=== PATIENT | male | born 1945 | race Caucasian/White ===

== ENCOUNTER → 2019-05-08 08:11 | Outpatient (BNVA) | payer MEDICARE, OTHER, SELFPAY | PROVIDERS: Family Provider Family Medicine; PCP Family Medicine; Visit Provider Urology | DX: C67.8 Malignant neoplasm of overlapping sites of bladder (principal) | CPT/HCPCS: 81001 ==

== ENCOUNTER 2019-05-14 14:23 | Inpatient (IN) | payer MEDICARE, OTHER, SELFPAY ==
[2019-05-11 11:57] VITALS: BMI 28.5
--- NOTE | 2019-05-11 12:03 | ECG_ITS ---
Measurements Intervals [place] Rate: 61 P: 51 HI: 142 QRS: 4 QRSD: 87 T: 40 QT: 395 QTc: 398 SINUS RHYTHM POSSIBLE LEFT ATRIAL ENLARGEMENT [-0.1mV P WAVE IN V1/V2] INTERPRETATION BASED ON A DEFAULT AGE OF 40 YEARS Compared to ECG 01/04/2019 09:31:58 Short HI interval no longer present Electronically Signed On 05-12-2019 11:24:16 INDUSTRIAL MAINTENANCE MECHANIC by King Baker M.D. [email or web address]
[2019-05-11 12:32] LABS: Basophils # 0.1 10^3/uL (0.0-0.1); Basophils % 0.9 %; Eosinophils # 0.1 10^3/uL (0.0-0.8); Eosinophils % 1.9 %; Hematocrit 44.9 % (42.0-52.0); Hemoglobin 15.2 g/dL (11.7-16.6); Lymphocytes # 1.8 10^3/uL (0.8-4.8); Lymphocytes % 26.3 %; Mean Corpuscular HGB Conc 33.9 g/dL (30.0-36.0); Mean Corpuscular Hemoglobin 27.9 pg (28.0-34.0); Mean Corpuscular Volume 82.4 fL (80-94); Mean Platelet Volume 10.7 fL (7.4-10.4); Monocytes # 0.6 10^3/uL (0.2-0.9); Neutrophils # 4.4 10^3/uL (1.8-7.7); Neutrophils % 62.5 %; Nucleated Red Blood Cells % 0 %; Platelet Count 242 10^3/cmm (130-400); Red Blood Count 5.45 10^6/uL (4.1-5.3); Red Cell Distribution Width 13.2 % (12.1-15.1)
--- NOTE | 2019-05-11 12:33 | ANES.PREANES ---
Pre-Anesthetic Assessment Pre-Anesthetic Assessment: Height/Weight: Height 1.83 m Weight 95.254 kg Preop Diagnosis: Bladder cancer Proposed Procedure: Operation Date: 05/14/19 12:00 Proposed Procedures s Cystoscopy(Not Applicable) - Leo Gonzalez MD p Transurethral Resection Bladder Tumor(Not Applicable) - Leo Gonzalez MD Social: Social History: Tobacco Packs per day: 1 ppd 19 years Comment: quit 40 year Exam: Pre-Anes Outpt Exam: alert, oriented x 3, clear to auscultation bilaterally and regular rate & rhythm Airway: Submandibular: WNL Cervical ROM: Other MP: 2 Additional comments: Hx of difficult airway requiring Glidescope/LMA in past CV/HEM: CV/HEM: HTN Comments: rx'd 35 years : Comments: bladder CA Musc/skel: Musc/skel: Lower Back Pain Comments: hx right radiculopathy Anesthetic Plan: ASA status: III Anesthesia: General PFSH Anesthesia PFSH: Social History Smoking and tobacco status: former smoker Alcohol intake: current Alcohol intake frequency: few times a month Marital status: Current occupational status: retired Data Anesthesia CBC & Chem 7: 05/11/19 12:17 Other Labs: Laboratory Results - last 48 hr 05/11/19 12:17 WBC 7.0 RBC 5.45 H Hgb 15.2 Hct 44.9 MCV 82.4 MCH 27.9 L MCHC 33.9 RDW 13.2 Plt Count 242 MPV 10.7 H Neut % (Auto) 62.5 Lymph % (Auto) 26.3 [place] % (Auto) 8.0 Eos % (Auto) 1.9 Baso % (Auto) 0.9 Neut # (Auto) 4.4 Lymph # (Auto) 1.8 [place] # (Auto) 0.6 Eos # (Auto) 0.1 Baso # (Auto) 0.1 Nucleated RBC % (auto) 0 Nucleated RBCs # 0.0 Cardiac Studies: No Data to Display
[2019-05-11 12:45] LABS: Alanine Aminotransferase 19 U/L (0-41); Albumin Level 4.5 g/dL (3.5-5.2); Alkaline Phosphatase 80 IU/L (40-130); Anion Gap 13.6 (5-19); Aspartate Amino Transferase 24 U/L (0-40); Blood Urea Nitrogen 18 mg/dL (8-23); Calcium 10.4 mg/Dl (8.8-10.2); Carbon Dioxide 29 mmol/L (22-29); Chloride 97 mmol/L (98-107); Globulin 3.3 g/dL (1.3-4.6); Glucose 109 mg/dL (74-106); Potassium 3.6 mmol/L (3.5-5.1); Sodium 136 mmol/L (136-145); Total Bilirubin 0.4 mg/dL (0.15-1.2); Total Protein 7.8 g/dL (6.6-8.7)
[2019-05-14] VITALS (15 sets, daily range): BP systolic 122–158; BP diastolic 65–98; PULSE 56–88; RESP 14–18; TEMP 36.3–36.9; O2SAT 92–98
[2019-05-14] MEDS: sodium chloride 0.9% 1,000 ML 30 ML IV (10:47)
--- NOTE | 2019-05-14 13:10 | PM.HPUD ---
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 PRIMARY INDICATION FOR PROCEDURE: same PLANNED PROCEDURE: Operation Date: 05/14/19 12:00 Proposed Procedures s Cystoscopy(Not Applicable) - Leo Gonzalez MD p Transurethral Resection Bladder Tumor(Not Applicable) - Leo Gonzalez MD Full H&P Medications/Allergies: Current Medications: Current Medications Generic Name Dose Route Start Last Admin Trade Name Freq PRN Reason Stop Dose Admin Sodium Chloride 1,000 mls @ 30 ml s/hr 05/14/19 10:15 05/14/19 10:47 Sodium Chloride 0.9% IV 05/15/19 10:14 30 mls/hr .Q24H CHARLY Administration Perinent History: Medical/Surgical History: Medical History (Updated 05/08/19 @ 08:13 by Jahaira Thomas APRN) Hypertension (Acute) Malignant neoplasm of overlapping sites of bladder (Acute) Family History: Family History (Updated 04/30/19 @ 09:15 by Fatou Pace RN) Father CAD (coronary artery disease) Mother Chronic kidney disease (CKD) Social History: Social History Smoking and tobacco status: former smoker Alcohol intake: current Alcohol intake frequency: few times a month Marital status: Current occupational status: retired
[2019-05-14] MEDS: levofloxacin-dextrose 5 % 500 MG/100 ML PREMIX 100 MG IV (13:15)
[2019-05-14] MEDS: lidocaine 2% Urojet 20 mL TOPICAL (13:58)
--- NOTE | 2019-05-14 14:08 | PM.OP ---
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 Begum is a very pleasant 73-year-old white male with a history of recurrent bladder cancer and suspicious bladder mucosal on surveillance cystoscopies with admission now for resampling of the bladder mucosa. See H&P for full details. Procedure: After routine preoperative evaluation examination and obtaining of informed consent he was taken to the operating suite on 05/14/2019 where general anesthesia was administered without difficulty after appropriate timeout was performed, SCDs confirmed to be functioning, preoperative antibiotics administered, beta-china protocol confirmed. Prepped and draped in usual sterile fashion in dorsolithotomy position pain careful attention to avoiding pressure points 21 Namibian cystoscope with 30 degree lens was introduced into the urethral meatus and advanced into the bladder videoscopy. The bladder was systematically examined with both 30 and 70 degree lens scopes. Findings as described above. A couple samples were obtained of the left trigone with biopsy forceps. The urethra was then calibrated with Pender sounds and easily accommodated 30 Namibian. 2% lidocaine jelly was instilled into the urethra then a well-lubricated 25 Namibian continuous flow resectoscope sheath with visual obturator in place was advanced to the bladder under videoscopy. The gyrus bipolar system was utilized with the super loop for the resection and the button probe for fulguration. The anterior bladder wall lesion was resected completely deep into the bladder wall and sent for pathologic evaluation Left lateral bladder wall resection was then performed extending from the anterior surface all the way to posteriorly to the floor with multiple deep sampling. Button probe was then utilized to fulgurate these areas and hemostasis was visually confirmed. All chips were confirmed to be out of the bladder and then the bladder was drained with a 20 Namibian three-way Ornelas catheter with 10 cc placed in the balloon and minimal CBI with normal saline was initiated. Drainage was clear. He tolerated the procedure well without complications and was awakened in the operating room and returned to the recovery in stable condition.
--- NOTE | 2019-05-14 15:27 | PC.NURSE ---
Transfer Patient arrived from PACU at 1500. 475 ml of pale yellow urine emptied from catheter bag. No clots noted. 1100 ml remaining in CBI bags from PACU. Nurse to start CBI I&O now. Patient rates pain 0/10. Nurse will continue to monitor.
[2019-05-14] MEDS: tamsulosin 0.4 mg Capsule PO (17:01)
[2019-05-15 04:40] VITALS: BP 153/65; PULSE 65; RESP 18; TEMP 36.5; O2SAT 96
[2019-05-15 07:50] VITALS: BP 139/76; PULSE 62; RESP 17; TEMP 36.8; O2SAT 95
[2019-05-15] MEDS: tamsulosin 0.4 mg Capsule PO ×2 (09:06→17:36)
[2019-05-15 10:48] VITALS: BP 133/72; PULSE 57; RESP 20; TEMP 36.4; O2SAT 94
--- NOTE | 2019-05-15 12:45 | PC.CHAP ---
Pastoral Care Encounter/Spiritual Assessment Type of Contact [] Declined clinical informatics spec visit [] Patient/Family/Request visit [] Outpatient visit [] Follow-up visit [] Physician referral [] Code/Alert [x] Routine visit [] Staff referral [] Actively dying [] Patient sleeping [] Family support [] [] Out of room [] Palliative care [] [] Receiving care in room [] Pre-surgical visit [] Trauma [] Long length of stay [] ICU visit [] Other: Relational/Emotional Strength [x] Patient feels connected with others/family/visitors/staff [] Distress [] Loneliness/isolation [] Abandonment Spirituality of Patient [x] Person of Narcisa [x] Attends Christian of their Narcisa [x] Believes in Prayer [x] Reads Bible or Tenriism materials [] There are Spiritual issues to be addressed Hand Hide Stretcher Interventions [x] Prayer [x] Active listening [x] Non-anxious presence [x] Spiritual/emotional support [] Crisis/trauma care [] Spiritual counseling [] Bereavement support [] Provided bereavement packet [] Provided Bible/devotional materials [] Provided toy/stuffed animal, coloring book to patient or family member [x] Completed spiritual assessment [] Provided Communion [] Anointing/[place] [] Salvation [] Other: Impact on Illness or Injury [] Angry [] Fearful [] Anxious [] Often cries [] Exhaustion [] Unable to work [] Unable to attend rastafarian [] Unable to walk/stand [] Unable to read [] Unable to drive [] Unable to eat/drink [] Unable to sleep [] Unable to be with family [] Other: Summary waiting for test visiting Time spent with patient 15 min
--- NOTE | 2019-05-15 12:56 | P.PN_ITS ---
Subjective Subjective: Interval history: Postoperative day #1 TURBT. Last night he had some clot retention requiring aggressive manual irrigation as well as brisk CBI. This morning his urine looks much better. Based on this fact I recommended keeping him an extra night because he lives so far away and because of the difficulty in clearing the catheter. It is anticipated that the patient will stay at least 2 midnights based on these findings. No chest pain shortness of breath mental status changes change in bowel habits extremity swelling, abnormal bruising No visual changes. Medications: Reviewed: Yes Vitals/I&O/Wt Last Vital Signs Temp 97.5 F L 05/15/19 10:48 Pulse 57 L 05/15/19 10:48 Resp 20 H 05/15/19 10:48 BP 133/72 05/15/19 10:48 Pulse Ox 94 05/15/19 10:48 05/14/19 05/15/19 05/15/19 22:59 06:59 14:59 Intake Total 1180 / 1280 240 / 1520 360 / 360 Output Total 0 / 0 1100 / 1100 Balance 1180 / 1280 -860 / 420 360 / 360 Physical Exam Const: COMMON NORMALS: no apparent distress and oriented x3 GENERAL APPEARANCE: cooperative Resp: COMMON NORMALS: normal respiratory effort EFFORT & INSPECTION: Yes able to speak in complete sentences Neuro: COMMON NORMALS: oriented x3 Urinary Catheter Management^: 3-way Urethral CBI: Cath Placed During This Visit: Yes Urethral Indwelling: Yes Data : 05/11/19 12:17 05/11/19 12:17 A&P Assessment and plan (1) Malignant neoplasm of overlapping sites of bladder: Worrisome findings. Pathology pending Status: Chronic Code(s): C67.8 - Malignant neoplasm of overlapping sites of bladder (2) Gross hematuria: Required manual irrigation and brisk CBI last night for acute bleeding postoperatively. Better this morning. Status: Acute Code(s): R31.0 - Gross hematuria Attestations Medical Necessity Statement*: Based on risk of recurrent bleeding he is being maintained in the hospital for over 2 midnights and therefore being switched to inpatient status. Coding Level of Care Code Acute Sales Service Assistant for Evgeny Marroquin Exam Problem Focused Diagnoses Malignant neoplasm of overlapping sites of bladder C67.8 Gross hematuria R31.0
[2019-05-15 15:44] VITALS: BP 122/82; PULSE 102; RESP 17; TEMP 36.7; O2SAT 98
[2019-05-15] MEDS: NIFEdipine ER (24 hr) 30 mg Tablet 60 MG PO (17:36)
[2019-05-15 21:44] VITALS: BP 145/77; PULSE 55; RESP 20; TEMP 36.9; O2SAT 94
[2019-05-16 00:14] VITALS: BP 144/64; PULSE 62; RESP 24; TEMP 36.8; O2SAT 92
--- NOTE | 2019-05-16 07:29 | PM.MISC ---
Miscellaneous Note Note: Brief update: Urine has remained clear overnight. No manual irrigation required. This morning we will remove the catheter, do 6 bottle void, frequent PVR bladder scans, in and out cath as needed to test for adequacy of recovery prior to discharge. Hopefully can be discharged later today without Ornelas catheter.
[2019-05-16 07:41] VITALS: BP 137/80; PULSE 62; RESP 16; TEMP 37; O2SAT 93
[2019-05-16 08:47] VITALS: RESP 18
[2019-05-16] MEDS: morphine 4 mg/mL SDV 1 mL 1 MG IVP (08:47)
[2019-05-16] MEDS: NIFEdipine ER (24 hr) 30 mg Tablet 60 MG PO (08:48)
[2019-05-16] MEDS: tamsulosin 0.4 mg Capsule PO (08:48)
--- NOTE | 2019-05-16 09:01 | PC.NURSE ---
bladder Ornelas catherer removed with yellow urine with one small stringy blood clot. 525ml.
[2019-05-16 10:52] VITALS: BP 128/84; PULSE 90; RESP 16; TEMP 36.4; O2SAT 95
[2019-05-16 15:10] VITALS: BP 128/84; PULSE 90; RESP 16; O2SAT 95
--- NOTE | 2019-05-21 13:14 | P.DS_ITS ---
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 Reason for Visit Reason for Visit: Reason For Visit: 42088 C67.8 Hospital Course Discharge Summary: He was admitted on the day of procedure 05/14/2019 and underwent multiple samplings of his bladder wall that were suspicious for recurrent TCCA and carcinoma in situ. His urine was not clear enough on postoperative day #1 to remove the Ornelas catheter so he was offered the opportunity to be discharged with catheter in place or remain an extra night in the hospital for continued bladder irrigation with hopes of catheter removal the following day. Given his long distance away from the hospital is felt to be too high of a risk to remove the catheter and send him home and there was some concern about the catheter management at home and for that reason he chose to be placed on inpa tient status with hopes of discharge the following day. He was successful with voiding trial on 05/16/2019 and after confirmation of adequate emptying and no significant bleeding he was discharged on the afternoon of 05/16/2019 in stable condition. Physical Exam Const: COMMON NORMALS: no apparent distress, alert and well nourished Resp: COMMON NORMALS: normal respiratory effort EFFORT & INSPECTION: No tachypneic and No respiratory distress GI: COMMON NORMALS: soft to palpation, non-tender and no masses INSPECTION: Yes normal to inspection PALPATION: Yes soft Neuro: SENSORIUM/ORIENTATION: Yes alert Psych: COMMON NORMALS: mental status grossly normal, affect normal and speech normal SPEECH: Yes normal speech Urinary Catheter Management^: 3-way Urethral CBI: Cath Placed During This Visit: no Discharge Data Data Completed and Pending: Completed Studies During Hospitalization Category Date Time Status Pathology: Surgic al [PTH] Routine Pth 05/14/19 14:14 Completed Vitals: Last Vital Signs Temp 97.6 F 05/16/19 10:52 Pulse 90 05/16/19 15:10 Resp 16 05/16/19 15:10 BP 128/84 05/16/19 15:10 Pulse Ox 95 05/16/19 15:10 Discharge Plan Discharge Patient Disposition: Home, Self-Care Condition: Stable Prescriptions: Continued potassium chloride 10 mEq capsule, extended release 10 meq PO .COMPLEX RF: 0 triamterene-hydrochlorothiazid [Dyazide] 37.5-25 mg capsule 1 cap PO BID RF: 0 nifedipine [Procardia XL] 60 mg tablet extended release 24hr 60 mg PO BID RF: 0 cetirizine 10 mg capsule 10 mg PO DAILY RF: 0 DHS Zinc 2 % shampoo 1 applic TOPICAL DAILY RF: 0 sulfacetamide sodium (acne) 10 % suspension 1 applic TOPICAL .prn RF: 0 No Action tamsulosin 0.4 mg capsule 0.4 mg PO BID Qty: 180 RF: 3 Discharge Orders: Discharge Order (Routine); Ordered 05/16/19 Ordered By: Leo Gonzalez Referrals: Leo Gonzalez MD [Physician] - 2 months (With cystoscopy. Call late this week or early next week for pathology review over the phone. Final plans to be arranged pending pathology results. Please schedule a follow up appointment to see Dr. Gonzalez in 2 months. ) Discharge Diet: Usual diet Discharge Activity: Limit activity as instructed Patient Instructions: Cystoscopy (DC), Transurethral Resection of Bladder Tumors (DC) Discharge Date/Time: 05/16/19 15:00 Discharge Attestations Time Spent in Discharge Care*: greater than 30 min Specific Discharge Activities: Specific discharge activities: educating patient, educating and/or supporting family/caregiver and evaluating patient/reviewing data Status at Discharge: Cognitive status at discharge: cognitively intact , Behavioral status at discharge: cooperative , Quality Metrics Clinical Quality Measures During this hospital stay, did patient experience: None Coding Level of Care Code Acute Contract Coordinator for Evgeny Fwd Exam Problem Focused Diagnoses Malignant neoplasm of overlapping sites of bladder C67.8
== END 2019-05-16 15:00 | disposition home or self-care (01) | DRG 670 ==
LOC: MEDSURG 14:24
PROVIDERS: Admitting Provider Urology; Family Provider Family Medicine; PCP Family Medicine; Visit Provider Urology
PROC: 0TJB8ZZ Inspection of Bladder, Via Natural or Artificial Opening Endoscopic (ICD-10-PCS; CPT 52000; principal; 2019-05-14 12:00)
PROC: 0TBB8ZZ Excision of Bladder, Via Natural or Artificial Opening Endoscopic (ICD-10-PCS; 2019-05-14 12:00)
DX: C67.8 Malignant neoplasm of overlapping sites of bladder (principal); Z87.891 Personal history of nicotine dependence; I10 Essential (primary) hypertension
CPT/HCPCS: 12345; 36415; 80053; 85025; 88305; 93005; 96365; 96375; G0378; J1956; J2001; J2270; J2704; J3010; J3490; J7030

== ENCOUNTER 2019-06-13 13:01 | Outpatient (CLI) | payer MEDICARE, OTHER, SELFPAY ==
--- NOTE | 2019-06-14 11:44 | ONC CON_ITS ---
Dr. Bermudez New Patient Note Patient: Farhad Begum Unit #: [id number]: 1945 Dicatated By: Bambi Bermudez M.D.Date of Visit: Jun 13, 2019 Onc MED New Patient/Consult Referring Physician: Dr. Leo Gonzalez M.D. History of Present Illness: Mr. Farhad Begum, is a 73-year-old gentleman with history of superficial bladder cancer who has been treated with intravesical BCG treatment in the past and recently underwent TURBT on 05/14/2019 and anterior bladder wall lesion was completely removed and final pathology report came back papillary urothelial carcinoma, high-grade. Carcinoma invades into lamina propria, no muscularis propria present for evaluation eg pT1 Left lateral bladder wall lesion was also biopsied and it showed reactive atypical urothelium in the background of abundant admitted this polypoid granulation tissue no malignancy identified no dysplasia seen. Biopsy from bladder, left trigone shows carcinoma in situ no invasive malignancy seen. 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 Patient denies any specific complaints, denies any hematuria, denies any abdominal pain, denies any new bony pains, denies any weight loss, denies any fever chills or dysuria. Past Medical History: Mr. Begum's medical history consists of bph and hypertension. Past Surgical History: Mr. Begum's surgical/procedural history consists of TURBT. Medications: Cefuroxime Axetil 1 Tablet (of 500 mg) Oral b.i.d., DHS Zinc Shampoo Topical PRN, Potassium Chloride Mile ER 3 Tablet (of 10 meq) Tablet, controlled release Oral b.i.d., Procardia XL 1 Tablet (of 60 mg) Tablet SR 24 HR Oral b.i.d., Sulfacetamide Sodium Cream Topical PRN, Tamsulosin HCl 2 Capsule (of 0.4 mg) Oral at bedtime, Triamterene-HCTZ 1 Capsule (of 37.5-25 mg) Oral b.i.d., ZyrTEC Allergy 1 Capsule (of 10 mg) Oral daily PRN Allergies: No Known Allergies. Social History: Mr. Begum is . Mr. Begum no longer smokes. He is an active drinker.He has indicated exposure to the following products: chewing tobacco. pt states he drinks one shot once a day of bourbon. Family History: Mr. Begum's mother at age 77: kidney disease, and stroke. Mr. Begum's father at age 82: heart disease. Mr. Begum has 2 sisters: 2 . Review Of Symptoms: Constitutional - Appetite is good and weight is stable. No fever, chills, hot flashes, or night sweats. Energy level is good, ENMT - Positive for sinus congestion/drainage. No mouth sores. No sore throat or difficulty swallowing, Hematologic/Lymphatic - Positive for easy bruising, Respiratory - No shortness of breath. No cough. No pleuritic pain or hemoptysis, Cardiovascular - No angina pain. No palpitations, Gastrointestinal - No nausea or vomiting. No heartburn or acid reflux. No diarrhea or constipation. No blood in the stool or black stools, Genitourinary (M) - No dysuria or hematuria. Positive for urinary frequency. No urgency or incontinence, Musculoskeletal - No joint or bone pain, Neurologic - No headache or dizziness. No numbness/paresthesias or other focal neurologic symptoms, Psychiatric - No anxiety or depression. No insomnia. Vital Signs: Most recent vitals are not available for this patient. Performance Status: 0 - Fully active, able to carry on all predisease activities without restrictions. (ECOG) Physical Examination: ENMT - No oral exudates, ulcers, masses, thrush or mucositis. Oropharynx clear. Tongue normal, Respiratory - Lungs are clear to auscultation without rhonchi or wheezing, Cardiovascular - Regular rate and rhythm of heart, Abdomen - Non-tender, non-distended, Good bowel sounds. No guarding or rebound tenderness. No pulsatile masses, Extremities - no edema. Lab/Imaging: Most recent lab results are not available for this patient. 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 Plan: Discussed with patient regarding his pathology report and treatment options and patient was informed that it is not clear whether he has superficial disease or invasive as final pathology report showed no muscularis propria was present for evaluation. In that case; it is important to have a second look and repeat biopsy, as 30-40% patient with lamina propria invasion would show muscle involvement on repeat biopsy. And treatment options are different for superficial bladder cancer compared to muscle invasive disease. Patient agreed and we will also discuss case with Dr. Gonzalez, urologist for repeat cystoscopy/biopsy . If patient has superficial disease then treatment options include intravesical docetaxel as in BCG refractory non-muscle invasive bladder cancer maintenance therapy with docetaxel may increase the duration of recurrence free survival. Study showed 32/ 54 patient with BCG refractory bladder cancer showed a complete response to 6 weekly treatments of intravesical docetaxel. Median time to recurrence was 39.3 months in responder treated with maintenance docetaxel compared with 19 months and those who did not receive maintenance therapy Other option would be pembrolizumab which is indicated for treatment of BCG refractory disease, high risk, non-muscle invasive bladder cancer which showed complete response rate of 41% in patient who received pembrolizumab and median duration of response was 16.2 months. Patient will return to clinic in 1 week unless repeat cystoscopy/biopsy is considered in that case we will see him after the biopsy. Signed By: Bambi Bermudez M.D. <<Signature on File>>
== END 2019-06-13 13:02 | disposition home or self-care (01) ==
LOC: ONCMED 13:06
PROVIDERS: Family Provider Family Medicine; PCP Family Medicine; Referring Provider Urology; Visit Provider Internal Medicine Hematology & Oncology
DX: C67.3 Malignant neoplasm of anterior wall of bladder (principal); N40.0 Benign prostatic hyperplasia without lower urinary tract symptoms; I10 Essential (primary) hypertension; F17.220 Nicotine dependence, chewing tobacco, uncomplicated; F10.10 Alcohol abuse, uncomplicated; Z79.899 Other long term (current) drug therapy
CPT/HCPCS: 99203

== ENCOUNTER 2019-06-28 13:46 | Observation (INO) | payer MEDICARE, OTHER, SELFPAY ==
[2019-06-27 16:13] VITALS: BMI 28.5
[2019-06-28] VITALS (13 sets, daily range): BP systolic 116–155; BP diastolic 68–83; PULSE 57–72; RESP 10–20; TEMP 36.3–36.8; O2SAT 91–100
--- NOTE | 2019-06-28 11:06 | ANES.PREANE2 ---
Pre-Anesthetic Assessment Pre-Anesthetic Assessment: Height/Weight: Height 1.83 m Weight 95.254 kg Temp Pulse Resp BP Pulse Ox 98.1 F 65 18 140/72 95 06/28/19 10:39 06/28/19 10:39 06/28/19 10:39 06/28/19 10:39 06/28/19 10:39 Preop Diagnosis: Bladder cancer Proposed Procedure: Operation Date: 06/28/19 12:00 Proposed Procedures p Cystoscopy 10059 C67.8(Not Applicable) - Leo Gonzalez MD s Transurethral Resection Bladder Tumor/deep samples(Not Applicable) - Leo Gonzalez MD Last intake: Intake Last Liquid Date 06/27/19 Last Liquid Time 19:00 Last Solid Date 06/27/19 Last Solid Time 19:00 Social: Social History: Tobacco Comment: Exam: Pre-Anes Outpt Exam: alert, oriented x 3, clear to auscultation bilaterally and regular rate & rhythm Airway: Submandibular: WNL Cervical ROM: Other MP: 3 CV/HEM: CV/HEM: HTN (rx'd x 50y) : Comments: Bladder Ca Musc/skel: Musc/skel: Lower Back Pain Comments: right > left radiculopathy Anesthetic Plan: ASA status: 3 Anesthesia: General Other: Hx difficult airway PFSH Anesthesia PFSH: Family History (Updated 06/28/19 @ 08:48 by Esther Hoffman LPN) Father , IN HIS 80'S CAD (coronary artery disease) Mother , IN HER 70'S Chronic kidney disease (CKD) Social History (Updated 06/28/19 @ 08:48 by Esther Hoffman LPN) Smoking and tobacco status: former smoker Alcohol intake: current Alcohol intake frequency: few times a month Marital status: Current occupational status: retired History of recent travel: No Data Anesthesia Cardiac Studies: No Data to Display
[2019-06-28] MEDS: sodium chloride 0.9% 1,000 ML 30 ML IV (11:23)
--- NOTE | 2019-06-28 12:32 | W.PM.OPSUD ---
Surgery/Procedure H&P Update DATE OF PROCEDURE: June 28, 2019 DATE H&P PERFORMED: 06/28/19 CHANGES TO PREVIOUS DOCUMENTATION: none PREOP DIAGNOSIS: Bladder cancer PLANNED PROCEDURE: Operation Date: 06/28/19 12:00 Proposed Procedures p Cystoscopy 65846 C67.8(Not Applicable) - Leo Gonzalez MD s Transurethral Resection Bladder Tumor/deep samples(Not Applicable) - Leo Gonzalez MD
[2019-06-28] MEDS: levofloxacin-dextrose 5 % 500 MG/100 ML PREMIX 100 MG IV (12:34)
[2019-06-28] MEDS: lidocaine 2% Urojet 20 mL TOPICAL (13:08)
--- NOTE | 2019-06-28 13:08 | P.OP_ITS ---
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 Resection into muscle fibers cystoscopically confirmed. Condition: stable Disposition: PACU Brief History: Mr. 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 He has failed BCG intravesical therapy and consultation with oncology was conducted to consider alternative options including intravesical, systemic, or surgical extirpative therapy. Recommendation was made to resample the deeper sites to better assess muscle status. Procedure: After routine preoperative evaluation examination and obtaining of informed consent he was taken to the operating suite on 06/28/2019 where general anesthesia was administered without difficulty after appropriate timeout was performed, SCDs confirmed to be functioning, preoperative antibiotics administered, beta-china protocol confirmed. Prepped and draped in usual sterile fashion in dorsolithotomy position pain careful attention to avoiding pressure points. 21 Vietnamese cystoscope with 30 degree lens was introduced into the Siri meatus and advanced into the bladder videoscopy. Bladder was systematically examined with both 30 and 70 degree lenses in the previous resection sites were identified. No obvious residual tumor was identified in the deep sites. The bladder mucosa did look very abnormal though throughout. The urethra was then calibrated with [place] sounds and easily accommodated 30 Vietnamese. 2% lidocaine jelly was instilled into the urethra and the well- lubricated 25 Vietnamese continuous flow resectoscope sheath with visual obturator in place was advanced into the bladder without difficulty. The gyrus bipolar system was utilized with the super loop and button probe for the procedure. The super loop was utilized to resect deeply into the muscle wall on the anterior bladder wall site and also on the left lateral wall as well. These resections were performed separately and sent separately. The sites were then fulgurated with the button probe. Hemostasis was good with no active bleeding. All chips were confirmed to be out of the bladder, hemostasis was confirmed, bladder was drained with a 20 Vietnamese three-way Ornelas catheter with 10 cc placed in the balloon and light CBI running prophylactically. Tolerated the procedure well without complications and was awakened in the operating room and returned to the recovery room in stable condition. PLANS: To be arranged
[2019-06-28] MEDS: lactated ringers 1,000 ML 50 ML IV (14:52)
[2019-06-28] MEDS: tamsulosin 0.4 mg Capsule PO (17:12)
--- NOTE | 2019-06-28 18:07 | PC.NURSE ---
Patient has not complained of pain this shift, only soreness at adan insertion site. Pain medications offered, patient refused. CBI running slow at this time, urine pink tinged one small clot noted in adan drainage bag. No manual irrigation needed. When patient received from PACU approximately 1000mL noted in each bag of fluid. approximately 100mL of fluid used for CBI, patient has had a total ouptut of 2150mL this shift.
[2019-06-29] VITALS: BP 118/68; PULSE 57; RESP 16; TEMP 36.7; O2SAT 93
[2019-06-29 03:48] VITALS: BP 123/72; PULSE 55; RESP 15; TEMP 36.8; O2SAT 91
--- NOTE | 2019-06-29 06:06 | PC.PHAR ---
CBI Pt. has done well throughout the night, no complaints of pain. Patient catheter has been draining well without passage of clots. Pt. did have one episode of increased blood in urine, CBI was sped up and it cleared immediately. CBI has been able to be slowed down to barely dripping with urine remaining clear to light yellow. Total intake of CBI fluids 1800mL with output returns of 2350mL.
[2019-06-29 08:00] VITALS: BP 126/64; PULSE 57; RESP 16; TEMP 36.8; O2SAT 92
[2019-06-29] MEDS: NIFEdipine ER (24 hr) 30 mg Tablet 60 MG PO (09:05)
[2019-06-29] MEDS: tamsulosin 0.4 mg Capsule PO (09:05)
--- NOTE | 2019-06-29 09:51 | ANE.PACU2 ---
 Inpatient post-anesthesia follow up: Airway intact: Yes Vital signs: Temperature 98.2 F Pulse Rate 57 Respiratory Rate 16 Blood Pressure 126/64 Pulse Oximetry 92 Oxygen Delivery Me thod Room Air Oxygen Flow Rate 8 Fraction of Inspir ed Oxygen Hydration adequate: Yes Nausea and vomiting: No Pain level: 1 Mental status: Baseline
[2019-06-29] MEDS: lactated ringers 1,000 ML 50 ML IV (10:48)
[2019-06-29 12:00] VITALS: BP 155/86; PULSE 85; RESP 18; TEMP 36.9; O2SAT 94
--- NOTE | 2019-06-29 13:12 | P.DS_ITS ---
Discharge Providers Date of Admission: 06/28/19 13:46 Date of Discharge: June 29, 2019 Attending Provider at Admission: Leo Gonzalez MD Attending Provider at Discharge: Leo Gonzalez MD Primary Care Provider: Marino Peguero DO Diagnoses at Discharge Discharge Diagnosis (1) Malignant neoplasm of overlapping sites of bladder: Status: Chronic Problem details: Patient with history of carcinoma in situ treated with prolonged BCG. Reason for Visit Reason for Visit: Reason For Visit: C67.8 Hospital Course Hospital Course: Admitted on the day of the procedure which went well. 2 areas were resected deeply into the bladder wall. No severe bleeding. Could not clearly see any residual tumor. Muscle fibers were visible at the base of the resection. Postoperatively did well. Urine remained clear. On the afternoon of postoperative day #1 his catheter was removed and a voided adequately. SCIC was reviewed again with the patient. No severe bleeding. Discharged home in stable condition. Physical Exam Const: COMMON NORMALS: no apparent distress and alert : BLADDER/KIDNEY EXAM: Yes bladder normal to palpation PENIS: normal penis MEATUS: meatus normal Neuro: SENSORIUM/ORIENTATION: Yes alert Psych: COMMON NORMALS: mental status grossly normal, thought process normal and cooperative ATTITUDE: Yes calm and Yes engaged THOUGHT PROCESS: normal thought process Urinary Catheter Management^: 3-way Urethral CBI: Cath Placed During This Visit: yes Urinary Catheter Date of Insertion: 06/28/19 Urinary Catheter Time of Insertion: 13:05 Discharge Data Data Completed and Pending: Completed Studies During Hospitalization Category Date Time Status Pathology: Surgic al [PTH] Routine Pth 06/28/19 13:22 Completed Vitals: Last Vital Signs Temp 98.2 F 06/29/19 08:00 Pulse 57 L 06/29/19 08:00 Resp 16 06/29/19 08:00 BP 126/64 06/29/19 08:00 Pulse Ox 92 06/29/19 08:00 Discharge Plan Discharge Patient Disposition: Home, Self-Care Condition: Stable Prescriptions: Continued potassium chloride 10 mEq capsule, extended release 10 meq PO .COMPLEX RF: 0 triamterene-hydrochlorothiazid [Dyazide] 37.5-25 mg capsule 1 cap PO BID RF: 0 nifedipine [Procardia XL] 60 mg tablet extended release 24hr 60 mg PO BID RF: 0 cetirizine 10 mg capsule 10 mg PO DAILY RF: 0 DHS Zinc 2 % shampoo 1 applic TOPICAL DAILY RF: 0 sulfacetamide sodium (acne) 10 % suspension 1 applic TOPICAL .prn RF: 0 tamsulosin 0.4 mg capsule 0.4 mg PO BID Qty: 180 RF: 3 Discharge Orders: Discharge Order (Routine); Ordered 06/29/19 Ordered By: Leo Gonzalez Referrals: Leo Gonzalez MD [Physician] - 07/06/19 (Path check) Discharge Diet: Usual diet Discharge Activity: Limit activity as instructed Activity Restrictions/Additional Instructions: Avoid lifting >10 pounds. In and out catheterization as needed for difficulty voiding. Avoid over distention of the bladder. Call for excessive persistent gross hematuria. Discharge Attestations Status at Discharge: Cognitive status at discharge: cognitively intact , Behavioral status at discharge: cooperative , Coding Level of Care Code Acute Brand Ambassador Promotional Model for g Fwd Diagnoses Malignant neoplasm of overlapping sites of bladder C67.8
--- NOTE | 2019-06-29 13:17 | PC.CHAP ---
Pastoral Care Encounter/Spiritual Assessment Type of Contact [] Declined litigation secretary visit [] Patient/Family/Request visit [] Outpatient visit [] Follow-up visit [] Physician referral [] Code/Alert []x Routine visit [] Staff referral [] Actively dying [] Patient sleeping [] Family support [] [] Out of room [] Palliative care [] [] Receiving care in room [] Pre-surgical visit [] Trauma [] Long length of stay [] ICU visit [] Other: Relational/Emotional Strength [x] Patient feels connected with others/family/visitors/staff [] Distress [] Loneliness/isolation [] Abandonment Spirituality of Patient [x] Person of Narcisa [] Attends Mu-Ism of their Narcisa [] Believes in Prayer [] Reads Bible or Hoahaoism materials [] There are Spiritual issues to be addressed Economics Instructor Interventions [x] Prayer [] Active listening [] Non-anxious presence [] Spiritual/emotional support [] Crisis/trauma care [] Spiritual counseling [] Bereavement support [] Provided bereavement packet [] Provided Bible/devotional materials [] Provided toy/stuffed animal, coloring book to patient or family member [] Provided Communion [] Anointing/[place] [] Salvation [x] Completed spiritual assessment [] Other: Impact on Illness or Injury [] Angry [] Fearful [x] Anxious [] Often cries [] Exhaustion [] Unable to work [] Unable to attend episcopalian [] Unable to walk/stand [] Unable to read [] Unable to drive [] Unable to eat/drink [] Unable to sleep [] Unable to be with family [] Patient intubated [] Other: Summary patient want to go home Time spent with patient 10 m1n 1 visitor
[2019-06-29 14:54] VITALS: BP 155/86; PULSE 85; RESP 18; TEMP 36.9; O2SAT 94
[2019-06-29 16:00] VITALS: BP 153/82; PULSE 60; RESP 18; TEMP 36.4; O2SAT 95
== END 2019-06-29 16:53 | disposition home or self-care (01) ==
LOC: MEDSURG 13:47
PROVIDERS: Admitting Provider Urology; Family Provider Family Medicine; PCP Family Medicine; Visit Provider Urology
PROC: 0TJB8ZZ Inspection of Bladder, Via Natural or Artificial Opening Endoscopic (ICD-10-PCS; CPT 52000; principal; 2019-06-28 12:00)
PROC: 0TBB8ZZ Excision of Bladder, Via Natural or Artificial Opening Endoscopic (ICD-10-PCS; CPT 52235; 2019-06-28 12:00)
DX: C67.8 Malignant neoplasm of overlapping sites of bladder (principal); I10 Essential (primary) hypertension; Z87.891 Personal history of nicotine dependence
CPT/HCPCS: 52235; 12345; 81001; 88305; 96360; 96361; 96375; G0378; J0131; J1956; J7030

== ENCOUNTER 2019-07-06 13:36 | Outpatient (CLI) | payer MEDICARE, OTHER, SELFPAY ==
[2019-07-06 14:50] LABS: Basophils # 0.1 10^3/uL (0.0-0.1); Basophils % 1.3 %; Eosinophils # 0.3 10^3/uL (0.0-0.8); Eosinophils % 4.8 %; Hematocrit 45.5 % (42.0-52.0); Lymphocytes # 1.5 10^3/uL (0.8-4.8); Lymphocytes % 28.2 %; Mean Corpuscular Hemoglobin 28.2 pg (28.0-34.0); Mean Corpuscular Volume 85.5 fL (80-94); Mean Platelet Volume 11.8 fL (7.4-10.4); Monocytes # 0.5 10^3/uL (0.2-0.9); Monocytes % 8.6 %; Neutrophils % 56.5 %; Nucleated Red Blood Cells % 0 %; Platelet Count 207 10^3/cmm (130-400); Red Blood Count 5.32 10^6/uL (4.1-5.3); Red Cell Distribution Width 13.1 % (12.1-15.1); White Blood Count 5.3 10^3/uL (4.0-10.0)
[2019-07-06 15:34] LABS: Alanine Aminotransferase 24 U/L (0-41); Albumin Level 4.1 g/dL (3.5-5.2); Alkaline Phosphatase 65 IU/L (40-130); Anion Gap 18.7 (5-19); Aspartate Amino Transferase 27 U/L (0-40); Blood Urea Nitrogen 22 mg/dL (8-23); Calcium 9.7 mg/dL (8.5-10.5); Carbon Dioxide 27 mmol/L (22-29); Chloride 98 mmol/L (98-107); Glucose 142 mg/dL (65-115); Osmolality Calculated 289 mOsm/kg (285-295); Potassium 3.7 mmol/L (3.5-5.1); Sodium 140 mmol/L (136-145); Total Bilirubin 0.5 mg/dL (0.15-1.2); Total Protein 7.1 g/dL (6.6-8.7)
== END 2019-07-06 13:37 | disposition home or self-care (01) ==
LOC: ONCMED 13:36
PROVIDERS: Family Provider Family Medicine; PCP Family Medicine; Visit Provider Internal Medicine Hematology & Oncology
DX: C67.0 Malignant neoplasm of trigone of bladder (principal)
CPT/HCPCS: 80053; 85025

== ENCOUNTER 2019-07-10 13:13 | Outpatient (CLI) | payer MEDICARE, OTHER, SELFPAY ==
--- NOTE | 2019-07-10 17:48 | ONC FU_ITS ---
Dr. Bermudez follow up note Patient: Farhad Begum Unit #: [id number]: 1945 Dicatated By: Bambi Bermudez M.D.Date of Visit:Jul 10, 2019 Onc Med Follow-up/Prog Note History of Present Illness: Mr. Farhad Begum, is a 73-year-old gentleman with history of superficial bladder cancer who has been treated with intravesical BCG treatment in the past and recently underwent TURBT on 05/14/2019 and anterior bladder wall lesion was completely removed and final pathology report came back papillary urothelial carcinoma, high-grade. Carcinoma invades into lamina propria, no muscularis propria present for evaluation eg pT1 Left lateral bladder wall lesion was also biopsied and it showed reactive atypical urothelium in the background of abundant admitted this polypoid granulation tissue no malignancy identified no dysplasia seen. Biopsy from bladder, left trigone shows carcinoma in situ no invasive malignancy seen. 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 Patient denies any specific complaints, denies any hematuria, denies any abdominal pain, denies any new bony pains, denies any weight loss, denies any fever chills or dysuria. Came for follow-up, denies any specific complaints, no nausea vomiting no fever no chills no hematuria no dysuria. Patient underwent repeat cystoscopy with the biopsy of bladder wall which showed carcinoma in situ no evidence of invasive tumor. Medications: Cefuroxime Axetil 1 Tablet (of 500 mg) Oral b.i.d., DHS Zinc Shampoo Topical PRN, Potassium Chloride Mile ER 3 Tablet (of 10 meq) Tablet, controlled release Oral b.i.d., Procardia XL 1 Tablet (of 60 mg) Tablet SR 24 HR Oral b.i.d., Sulfacetamide Sodium Cream Topical PRN, Tamsulosin HCl 2 Capsule (of 0.4 mg) Oral at bedtime, Triamterene-HCTZ 1 Capsule (of 37.5-25 mg) Oral b.i.d., ZyrTEC Allergy 1 Capsule (of 10 mg) Oral daily PRN Allergies: No Known Allergies. Review of Systems: Constitutional - Appetite is good and weight is stable. No fever, chills, hot flashes, or night sweats. Energy level is good, ENMT - Positive for sinus congestion/drainage. No mouth sores. No sore throat or difficulty swallowing, Hematologic/Lymphatic - Positive for easy bruising, Respiratory - No shortness of breath. No cough. No pleuritic pain or hemoptysis, Cardiovascular - No angina pain. No palpitations, Gastrointestinal - No nausea or vomiting. No heartburn or acid reflux. No diarrhea or constipation. No blood in the stool or black stools, Genitourinary (M) - No dysuria or hematuria. Positive for urinary frequency. No urgency or incontinence, Musculoskeletal - No joint or bone pain, Neurologic - No headache or dizziness. No numbness/paresthesias or other focal neurologic symptoms, Psychiatric - No anxiety or depression. No insomnia. Vital Signs: Performed on Jul 10, 2019 13:33 Height - 72.00 in Weight - 219.0 lbs (HIGH) BSA - 2.21 sq.m BMI - 29.70 Temperature - 97.8 F (LOW) Pulse - 67 /min Respiration - 18 /min BP - 137/75 mm(hg) O2 Sat - 98 % Pain - 0 Performance Status: 0 - Fully active, able to carry on all predisease activities without restrictions. (ECOG) Physical Examination: ENMT - No oral exudates, ulcers, masses, thrush or mucositis. Oropharynx clear. Tongue normal, Respiratory - Lungs are clear to auscultation without rhonchi or wheezing, Cardiovascular - Regular rate and rhythm of heart, Abdomen - Non-tender, non-distended, Good bowel sounds. No guarding or rebound tenderness. No pulsatile masses, Extremities - no edema. Lab/Imaging: Most recent lab results are not available for this patient. 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 Plan: Discussed with patient regarding his repeat biopsy of the under better which shows transitional carcinoma in situ, focal but no evidence of invasive tumor and case was discussed with Dr. Gonzalez, as per his observation patient has extensive bladder wall involvement and has BCG refractory disease treatment options including intravesical docetaxel versus pembrolizumab. Patient is a high risk noninvasive bladder cancer and may benefit from pembrolizumab, all the side effect possible benefits associated with immunotherapy including risk of pneumonitis, colitis, endocrine abnormalities, allergic reaction were discussed. Further teaching done by chemotherapy nurse. Patient agreed we will obtain approval from his insurance and plan to give him pembrolizumab 200 mg IV every 3 weeks and repeat cystoscopy/biopsy in 3 months. We'll also check thyroid function test. Patient return to clinic 1 week after immunotherapy is initiated with CBC CMP Signed By: Bambi Bermudez M.D. <<Signature on File>>
== END 2019-07-10 13:14 | disposition home or self-care (01) ==
LOC: ONCMED 13:19
PROVIDERS: Family Provider Family Medicine; PCP Family Medicine; Visit Provider Internal Medicine Hematology & Oncology
DX: C67.0 Malignant neoplasm of trigone of bladder (principal); Z92.3 Personal history of irradiation
CPT/HCPCS: 99214

== ENCOUNTER 2019-07-24 14:48 | Outpatient (CLI) | payer MEDICARE, OTHER, SELFPAY ==
[2019-07-24] MEDS: sodium chloride 0.9% 100 ML 75 ML (15:10)
== END 2019-07-24 14:49 | disposition home or self-care (01) ==
LOC: ONCMED 14:51
PROVIDERS: Family Provider Family Medicine; PCP Family Medicine; Visit Provider Internal Medicine Hematology & Oncology
DX: Z51.12 Encounter for antineoplastic immunotherapy (principal); C67.3 Malignant neoplasm of anterior wall of bladder
CPT/HCPCS: 96413; J7050; J9271

== ENCOUNTER 2019-08-14 06:45 | Outpatient (RCR) | payer MEDICARE, OTHER, SELFPAY ==
[2019-07-27 12:16] LABS: Basophils % 0.6 %; Eosinophils # 0.3 10^3/uL (0.0-0.8); Eosinophils % 4.7 %; Hematocrit 46.2 % (42.0-52.0); Hemoglobin 15.4 g/dL (11.7-16.6); Lymphocytes # 1.5 10^3/uL (0.8-4.8); Lymphocytes % 23.2 %; Mean Corpuscular HGB Conc 33.3 g/dL (30.0-36.0); Mean Corpuscular Hemoglobin 28.5 pg (28.0-34.0); Mean Corpuscular Volume 85.4 fL (80-94); Mean Platelet Volume 12.3 fL (7.4-10.4); Monocytes # 0.6 10^3/uL (0.2-0.9); Neutrophils # 3.9 10^3/uL (1.8-7.7); Neutrophils % 62.2 %; Nucleated Red Blood Cells % 0 %; Platelet Count 191 10^3/cmm (130-400); Red Blood Count 5.41 10^6/uL (4.1-5.3); Red Cell Distribution Width 13.3 % (12.1-15.1); White Blood Count 6.3 10^3/uL (4.0-10.0)
[2019-07-27 12:44] LABS: Alanine Aminotransferase 18 U/L (0-41); Albumin Level 4.1 g/dL (3.5-5.2); Alkaline Phosphatase 68 IU/L (40-130); Anion Gap 19.6 (5-19); Aspartate Amino Transferase 22 U/L (0-40); Blood Urea Nitrogen 19 mg/dL (8-23); Calcium 9.4 mg/dL (8.5-10.5); Carbon Dioxide 25 mmol/L (22-29); Chloride 99 mmol/L (98-107); Globulin 2.8 g/dL (1.3-4.6); Glucose 113 mg/dL (65-115); Osmolality Calculated 287 mOsm/kg (285-295); Potassium 3.6 mmol/L (3.5-5.1); Sodium 140 mmol/L (136-145); Thyroid Stimulating Hormone 2.06 uIU/mL (0.27-4.20); Total Bilirubin 0.6 mg/dL (0.15-1.2); Total Protein 6.9 g/dL (6.6-8.7)
--- NOTE | 2019-07-30 15:10 | ONC FU_ITS ---
Dr. Bermudez follow up note Patient: Farhad Begum Unit #: [id number]: 1945 Dicatated By: Bambi Bermudez M.D.Date of Visit:Jul 30, 2019 Onc Med Follow-up/Prog Note History of Present Illness: Mr. Farhad Begum, is a 73-year-old gentleman with history of superficial bladder cancer who has been treated with intravesical BCG treatment in the past and recently underwent TURBT on 05/14/2019 and anterior bladder wall lesion was completely removed and final pathology report came back papillary urothelial carcinoma, high-grade. Carcinoma invades into lamina propria, no muscularis propria present for evaluation eg pT1 Left lateral bladder wall lesion was also biopsied and it showed reactive atypical urothelium in the background of abundant admitted this polypoid granulation tissue no malignancy identified no dysplasia seen. Biopsy from bladder, left trigone shows carcinoma in situ no invasive malignancy seen. 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 Patient denies any specific complaints, denies any hematuria, denies any abdominal pain, denies any new bony pains, denies any weight loss, denies any fever chills or dysuria. Started on Keytruda on 07/24/2019 for BCG refractory disease Came for follow-up, denies any specific complaints, no fever or chills, no nausea or vomiting, no skin rash, no shortness of breath, no diarrhea. Tolerated first cycle of immunotherapy with Keytruda well Came for follow-up, denies any specific complaints, no nausea vomiting no fever no chills no hematuria no dysuria. Patient underwent repeat cystoscopy with the biopsy of bladder wall which showed carcinoma in situ no evidence of invasive tumor. Medications: Cefuroxime Axetil 1 Tablet (of 500 mg) Oral b.i.d., DHS Zinc Shampoo Topical PRN, Potassium Chloride Mile ER 3 Tablet (of 10 meq) Tablet, controlled release Oral b.i.d., Procardia XL 1 Tablet (of 60 mg) Tablet SR 24 HR Oral b.i.d., Sulfacetamide Sodium Cream Topical PRN, Tamsulosin HCl 2 Capsule (of 0.4 mg) Oral at bedtime, Triamterene-HCTZ 1 Capsule (of 37.5-25 mg) Oral b.i.d., ZyrTEC Allergy 1 Capsule (of 10 mg) Oral daily PRN Allergies: No Known Allergies. Review of Systems: Constitutional - Appetite is good and weight is stable. No fever, chills, hot flashes, or night sweats. Energy level is good, ENMT - Positive for sinus congestion/drainage. No mouth sores. No sore throat or difficulty swallowing, Hematologic/Lymphatic - Positive for easy bruising, Respiratory - No shortness of breath. No cough. No pleuritic pain or hemoptysis, Cardiovascular - No angina pain. No palpitations, Gastrointestinal - No nausea or vomiting. No heartburn or acid reflux. No diarrhea or constipation. No blood in the stool or black stools, Genitourinary (M) - No dysuria or hematuria. Positive for urinary frequency. No urgency or incontinence, Musculoskeletal - No joint or bone pain, Neurologic - No headache or dizziness. No numbness/paresthesias or other focal neurologic symptoms, Psychiatric - No anxiety or depression. No insomnia. Vital Signs: Performed on Jul 30, 2019 14:25 Height - 72.00 in Weight - 219.4 lbs (HIGH) BSA - 2.22 sq.m BMI - 29.76 Temperature - 98.5 F Pulse - 84 /min Respiration - 22 /min BP - 150/68 mm(hg) (HIGH) O2 Sat - 95 % (LOW) Pain - 0 Performance Status: 0 - Fully active, able to carry on all predisease activities without restrictions. (ECOG) Physical Examination: ENMT - patient denies mouth sores or thrush, Respiratory - patient denies any wheezing or shortness of breath, Cardiovascular - patient denies any palpitation, Abdomen - patient denies any abdominal pain or fullness, Extremities - patient denies any lower extremity edema. Lab/Imaging: Test performed on Jul 27, 2019 07:05 Sodium 140 mmol/L TSH 2.06 uIU/mL Potassium 3.6 mmol/L Chloride 99 mmol/L CO2 25 mmol/L Anion Gap 19.6 BUN 19 mg/dL Creatinine 0.9 mg/dL Cr Clearance (Est) 99.6500 mL/min Glucose 113 mg/dL Calcium 9.4 mg/dL Protein, Total 6.9 g/dL Albumin 4.1 g/dL Globulin 2.8 g/dL Bilirubin, Total 0.6 mg/dL ALT (SGPT) 18 U/L AST (SGOT) 22 U/L Alkaline Phosphatase 68 IU/L WBC 6.3 10 3/uL RBC 5.41 10 6/uL HGB 15.4 g/dL HCT 46.2 % MCV 85.4 fL MCH 28.5 pg MCHC 33.3 g/dL RDW 13.3 % Platelet Count 191 10 3/cmm MPV 12.3 fL Neutrophils 3.9 10 3/uL Lymphocytes 1.5 10 3/uL Monocytes 0.6 10 3/uL Eosinophils 0.3 10 3/uL Basophils 0.0 10 3/uL Neutrophil % 62.2 % Lymphocyte % 23.2 % Monocyte % 9.0 % Eosinophil % 4.7 % Basophils % 0.6 % Impression: Papillary urothelial carcinoma, high-grade, involving anterior urinary bladder wall, per TURBT done on 05/14/2019, final pathology report showed carcinoma invades into lamina propria, no muscularis propria present for evaluation pT1 Status post intravesical therapy with BCG now 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 Started on 3 weekly Keytruda on 07/24/2019 Plan: Discussed with patient regarding his labs white blood count 6.3 hemoglobin 15.4 crit 46.2 platelets 191,000 CMP within normal limits TSH 2.06 Clinically, patient is doing well, with no signs symptoms suggestive of immunotherapy related side effects. He will return to clinic in 2 weeks for next 3 weekly dose of Keytruda, with CBC CMP. Signed By: Bambi Bermudez M.D. <<Signature on File>>
[2019-08-13 08:42] LABS: Basophils # 0.1 10^3/uL (0.0-0.1); Basophils % 0.9 %; Eosinophils # 0.2 10^3/uL (0.0-0.8); Eosinophils % 4.3 %; Hematocrit 47.8 % (42.0-52.0); Hemoglobin 15.8 g/dL (11.7-16.6); Lymphocytes # 1.3 10^3/uL (0.8-4.8); Lymphocytes % 23.8 %; Mean Corpuscular HGB Conc 33.1 g/dL (30.0-36.0); Mean Corpuscular Hemoglobin 27.9 pg (28.0-34.0); Mean Corpuscular Volume 84.5 fL (80-94); Mean Platelet Volume 11.5 fL (7.4-10.4); Monocytes # 0.5 10^3/uL (0.2-0.9); Monocytes % 8.6 %; Neutrophils # 3.4 10^3/uL (1.8-7.7); Nucleated Red Blood Cells % 0 %; Platelet Count 211 10^3/cmm (130-400); Red Blood Count 5.66 10^6/uL (4.1-5.3); Red Cell Distribution Width 13.5 % (12.1-15.1); White Blood Count 5.6 10^3/uL (4.0-10.0)
[2019-08-13 09:05] LABS: Alanine Aminotransferase 20 U/L (0-41); Albumin Level 4.3 g/dL (3.5-5.2); Alkaline Phosphatase 64 IU/L (40-130); Anion Gap 15.3 (5-19); Aspartate Amino Transferase 25 U/L (0-40); Blood Urea Nitrogen 20 mg/dL (8-23); Calcium 9.6 mg/dL (8.5-10.5); Carbon Dioxide 29 mmol/L (22-29); Chloride 97 mmol/L (98-107); Globulin 2.8 g/dL (1.3-4.6); Glucose 138 mg/dL (65-115); Osmolality Calculated 285 mOsm/kg (285-295); Potassium 3.3 mmol/L (3.5-5.1); Sodium 138 mmol/L (136-145); Total Bilirubin 0.6 mg/dL (0.15-1.2); Total Protein 7.1 g/dL (6.6-8.7)
--- NOTE | 2019-08-14 15:23 | ONC FU_ITS ---
Dr. Bermudez follow up note Patient: Farhad Begum Unit #: [id number]: 1945 Dicatated By: Bambi Bermudez M.D.Date of Visit:Aug 14, 2019 Onc Med Follow-up/Prog Note History of Present Illness: Mr. Farhad Begum, is a 73-year-old gentleman with history of superficial bladder cancer who has been treated with intravesical BCG treatment in the past and recently underwent TURBT on 05/14/2019 and anterior bladder wall lesion was completely removed and final pathology report came back papillary urothelial carcinoma, high-grade. Carcinoma invades into lamina propria, no muscularis propria present for evaluation eg pT1 Left lateral bladder wall lesion was also biopsied and it showed reactive atypical urothelium in the background of abundant admitted this polypoid granulation tissue no malignancy identified no dysplasia seen. Biopsy from bladder, left trigone shows carcinoma in situ no invasive malignancy seen. 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 Patient denies any specific complaints, denies any hematuria, denies any abdominal pain, denies any new bony pains, denies any weight loss, denies any fever chills or dysuria. 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 No abdominal pain, no shortness of breath, no skin rash. Medications: Cefuroxime Axetil 1 Tablet (of 500 mg) Oral b.i.d., DHS Zinc Shampoo Topical PRN, Potassium Chloride Mile ER 3 Tablet (of 10 meq) Tablet, controlled release Oral b.i.d., Procardia XL 1 Tablet (of 60 mg) Tablet SR 24 HR Oral b.i.d., Sulfacetamide Sodium Cream Topical PRN, Tamsulosin HCl 2 Capsule (of 0.4 mg) Oral at bedtime, Triamterene-HCTZ 1 Capsule (of 37.5-25 mg) Oral b.i.d., ZyrTEC Allergy 1 Capsule (of 10 mg) Oral daily PRN Allergies: No Known Allergies. Review of Systems: Constitutional - Appetite is good and weight is stable. No fever, chills, hot flashes, or night sweats. Energy level is good, ENMT - Positive for sinus congestion/drainage. No mouth sores. No sore throat or difficulty swallowing, Hematologic/Lymphatic - Positive for easy bruising, Respiratory - No shortness of breath. No cough. No pleuritic pain or hemoptysis, Cardiovascular - No angina pain. No palpitations, Gastrointestinal - No nausea or vomiting. No heartburn or acid reflux. Pt report episode of diarrhea this morning, no constipation. No blood in the stool or black stools, Genitourinary (M) - No dysuria or hematuria. Positive for urinary frequency. No urgency or incontinence, Musculoskeletal - No joint or bone pain, Neurologic - No headache or dizziness. No numbness/paresthesias or other focal neurologic symptoms, Psychiatric - No anxiety or depression. No insomnia. Vital Signs: Performed on Aug 14, 2019 15:04 Height - 72.00 in Weight - 216.4 lbs (LOW) BSA - 2.20 sq.m BMI - 29.35 Temperature - 99.0 F (HIGH) Pulse - 94 /min Respiration - 19 /min BP - 157/82 mm(hg) (HIGH) O2 Sat - 96 % Pain - 1 Performance Status: 0 - Fully active, able to carry on all predisease activities without restrictions. (ECOG) Physical Examination: ENMT - no mouth sores, Respiratory - lungs clear, Cardiovascular - Regular rate and rhythm, Abdomen - no abdominal pain or fullness, Extremities - no visible edema or rash. Lab/Imaging: Test performed on Aug 13, 2019 07:15 Sodium 138 mmol/L TSH 1.60 uIU/mL Potassium 3.3 mmol/L Chloride 97 mmol/L CO2 29 mmol/L Anion Gap 15.3 BUN 20 mg/dL Creatinine 0.9 mg/dL Cr Clearance (Est) 99.8300 mL/min Glucose 138 mg/dL Calcium 9.6 mg/dL Protein, Total 7.1 g/dL Albumin 4.3 g/dL Globulin 2.8 g/dL Bilirubin, Total 0.6 mg/dL ALT (SGPT) 20 U/L AST (SGOT) 25 U/L Alkaline Phosphatase 64 IU/L WBC 5.6 10 3/uL RBC 5.66 10 6/uL HGB 15.8 g/dL HCT 47.8 % MCV 84.5 fL MCH 27.9 pg MCHC 33.1 g/dL RDW 13.5 % Platelet Count 211 10 3/cmm MPV 11.5 fL Neutrophils 3.4 10 3/uL Lymphocytes 1.3 10 3/uL Monocytes 0.5 10 3/uL Eosinophils 0.2 10 3/uL Basophils 0.1 10 3/uL Neutrophil % 62.0 % Lymphocyte % 23.8 % Monocyte % 8.6 % Eosinophil % 4.3 % Basophils % 0.9 % Impression: Papillary urothelial carcinoma, high-grade, involving anterior urinary bladder wall, per TURBT done on 05/14/2019, final pathology report showed carcinoma invades into lamina propria, no muscularis propria present for evaluation pT1 Status post intravesical therapy with BCG now 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 Started on 3 weekly Keytruda on 07/24/2019 Plan: Discussed with patient regarding his labs white blood count 5.6 and globin 15.8 crit 47.8 platelets 211,000 CMP within normal limit except potassium 3.3 and glucose 138 Clinically, patient is doing well, tolerating systemic therapy with Keytruda well but with expected side effects. We'll proceed with next 3 weekly dose of Keytruda 200 mg, today and then he'll return to clinic in 3 weeks with CBC CMP As far as mild hypokalemia is concerned patient is on potassium supplement along with diuretics, on a regular basis, patient was advised to take extra dose today and tomorrow and then continue with his regular dose along with diuretics . Signed By: Bambi Bermudez M.D. <<Signature on File>>
== END 2019-08-23 23:59 | disposition home or self-care (01) ==
LOC: ONCMED 06:45
PROVIDERS: Family Provider Family Medicine; PCP Family Medicine; Visit Provider Internal Medicine Hematology & Oncology
DX: Z51.12 Encounter for antineoplastic immunotherapy (principal); C67.0 Malignant neoplasm of trigone of bladder; N40.0 Benign prostatic hyperplasia without lower urinary tract symptoms; I10 Essential (primary) hypertension; E87.6 Hypokalemia; Z79.899 Other long term (current) drug therapy
CPT/HCPCS: 80053; 84443; 85025; 96413; 99214; G0463; J7050; J9271

== ENCOUNTER 2019-09-19 06:43 | Outpatient (RCR) | payer MEDICARE, OTHER, SELFPAY ==
[2019-09-03 12:28] LABS: Basophils # 0.1 10^3/uL (0.0-0.1); Basophils % 0.8 %; Eosinophils # 0.2 10^3/uL (0.0-0.8); Hematocrit 49.8 % (42.0-52.0); Hemoglobin 16.1 g/dL (11.7-16.6); Lymphocytes # 1.1 10^3/uL (0.8-4.8); Lymphocytes % 17.3 %; Mean Corpuscular HGB Conc 32.3 g/dL (30.0-36.0); Mean Corpuscular Hemoglobin 27.7 pg (28.0-34.0); Mean Corpuscular Volume 85.7 fL (80-94); Monocytes # 0.7 10^3/uL (0.2-0.9); Monocytes % 10.6 %; Neutrophils # 4.3 10^3/uL (1.8-7.7); Neutrophils % 67.7 %; Nucleated Red Blood Cells % 0 %; Platelet Count 306 10^3/cmm (130-400); Red Blood Count 5.81 10^6/uL (4.1-5.3); Red Cell Distribution Width 13.5 % (12.1-15.1); White Blood Count 6.3 10^3/uL (4.0-10.0)
[2019-09-03 12:49] LABS: Alanine Aminotransferase 36 U/L (0-41); Albumin Level 4.2 g/dL (3.5-5.2); Alkaline Phosphatase 72 IU/L (40-130); Anion Gap 18.8 (5-19); Aspartate Amino Transferase 31 U/L (0-40); Blood Urea Nitrogen 20 mg/dL (8-23); Calcium 9.9 mg/dL (8.5-10.5); Carbon Dioxide 28 mmol/L (22-29); Chloride 95 mmol/L (98-107); Globulin 3.5 g/dL (1.3-4.6); Glucose 142 mg/dL (65-115); Osmolality Calculated 285 mOsm/kg (285-295); Potassium 3.8 mmol/L (3.5-5.1); Sodium 138 mmol/L (136-145); Thyroid Stimulating Hormone 0.91 uIU/mL (0.27-4.20); Total Bilirubin 0.4 mg/dL (0.15-1.2); Total Protein 7.7 g/dL (6.6-8.7)
--- NOTE | 2019-09-05 14:19 | ONC FU_ITS ---
Dr. Bermudez follow up note Patient: Farhad Begum Unit #: [id number]: 1945 Dicatated By: Bambi Bermudez M.D.Date of Visit:September 05, 2019 Onc Med Follow-up/Prog Note History of Present Illness: Mr. Farhad Begum, is a 73-year-old gentleman with history of superficial bladder cancer who has been treated with intravesical BCG treatment in the past and recently underwent TURBT on 05/14/2019 and anterior bladder wall lesion was completely removed and final pathology report came back papillary urothelial carcinoma, high-grade. Carcinoma invades into lamina propria, no muscularis propria present for evaluation eg pT1 Left lateral bladder wall lesion was also biopsied and it showed reactive atypical urothelium in the background of abundant admitted this polypoid granulation tissue no malignancy identified no dysplasia seen. Biopsy from bladder, left trigone shows carcinoma in situ no invasive malignancy seen. 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 Patient denies any specific complaints, denies any hematuria, denies any abdominal pain, denies any new bony pains, denies any weight loss, denies any fever chills or dysuria. 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 Denies any shortness of breath or wheezing denies any choking sensation, denies any dysphagia, denies any diarrhea, or melena or hematochezia, denies any mouth sores, denies any poison alexys exposure or allergies. Medications: Cefuroxime Axetil 1 Tablet (of 500 mg) Oral b.i.d., DHS Zinc Shampoo Topical PRN, Potassium Chloride Mile ER 3 Tablet (of 10 meq) Tablet, controlled release Oral b.i.d., Procardia XL 1 Tablet (of 60 mg) Tablet SR 24 HR Oral b.i.d., Sulfacetamide Sodium Cream Topical PRN, Tamsulosin HCl 2 Capsule (of 0.4 mg) Oral at bedtime, Triamterene-HCTZ 1 Capsule (of 37.5-25 mg) Oral b.i.d., ZyrTEC Allergy 1 Capsule (of 10 mg) Oral daily PRN Allergies: No Known Allergies. Review of Systems: Constitutional - Appetite is good and weight is stable. No fever, chills, hot flashes, or night sweats. Energy level is good, ENMT - Positive for sinus congestion/drainage. No mouth sores. No sore throat or difficulty swallowing, Hematologic/Lymphatic - Positive for easy bruising, Respiratory - No shortness of breath. No cough. No pleuritic pain or hemoptysis, Cardiovascular - No angina pain. No palpitations, Gastrointestinal - No nausea or vomiting. No heartburn or acid reflux. Pt report episode of diarrhea this morning, no constipation. No blood in the stool or black stools, Genitourinary (M) - No dysuria or hematuria. Positive for urinary frequency. No urgency or incontinence, Musculoskeletal - No joint or bone pain, Integumentary - Pt has significant rash on bilateral upper extremities and neck. Pt denies rash elsewhere, Neurologic - No headache or dizziness. No numbness/paresthesias or other focal neurologic symptoms, Psychiatric - No anxiety or depression. No insomnia. Vital Signs: Performed on September 05, 2019 12:48 Height - 72.00 in Weight - 212.2 lbs (LOW) BSA - 2.18 sq.m BMI - 28.78 Temperature - 97.9 F (LOW) Pulse - 84 /min Respiration - 17 /min BP - 150/80 mm(hg) (HIGH) O2 Sat - 97 % Pain - 0 Performance Status: 0 - Fully active, able to carry on all predisease activities without restrictions. (ECOG) Physical Examination: ENMT - no mouth sores, or thrush, Respiratory - Lungs are clear , no wheezing, Cardiovascular - Regular rate and rhythm of heart, Abdomen - soft also present, Extremities - no visible edema but maculopapular rash involving upper extremities/hands bilaterally and anterior neck and lower part of face. Lab/Imaging: Test performed on September 03, 2019 07:20 Sodium 138 mmol/L TSH 0.91 uIU/mL Potassium 3.8 mmol/L Chloride 95 mmol/L CO2 28 mmol/L Anion Gap 18.8 BUN 20 mg/dL Creatinine 0.9 mg/dL Cr Clearance (Est) 98.4600 mL/min Glucose 142 mg/dL Calcium 9.9 mg/dL Protein, Total 7.7 g/dL Albumin 4.2 g/dL Globulin 3.5 g/dL Bilirubin, Total 0.4 mg/dL ALT (SGPT) 36 U/L AST (SGOT) 31 U/L Alkaline Phosphatase 72 IU/L WBC 6.3 10 3/uL RBC 5.81 10 6/uL HGB 16.1 g/dL HCT 49.8 % MCV 85.7 fL MCH 27.7 pg MCHC 32.3 g/dL RDW 13.5 % Platelet Count 306 10 3/cmm MPV 11.0 fL Neutrophils 4.3 10 3/uL Lymphocytes 1.1 10 3/uL Monocytes 0.7 10 3/uL Eosinophils 0.2 10 3/uL Basophils 0.1 10 3/uL Neutrophil % 67.7 % Lymphocyte % 17.3 % Monocyte % 10.6 % Eosinophil % 3.0 % Basophils % 0.8 % Impression: Papillary urothelial carcinoma, high-grade, involving anterior urinary bladder wall, per TURBT done on 05/14/2019, final pathology report showed carcinoma invades into lamina propria, no muscularis propria present for evaluation pT1 Status post intravesical therapy with BCG now 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 Started on 3 weekly Keytruda on 07/24/2019 Plan: Discussed with patient regarding his labs white blood count 6.3 hemoglobin 16.1 hematocrit 49.8 platelets 306,000 CMP within normal limits except glucose 142 Clinically, patient doing well, tolerating Keytruda well but with expected side effects e.g. now with maculopapular rash involving upper extremities and hands and anterior neck and lower part of face since last week could be allergic reaction but concern is whether this immunotherapy related. Patient is due for Keytruda today but we will hold it for 1 week and if rash resolves then will continue with Keytruda while monitoring for any toxicity related to it. Patient was advised to use [id number] low potency hydrocortisone cream in case there is a worsening of rash or try antihistaminic for worsening of itching. Signed By: Bambi Bermudez M.D. <<Signature on File>>
--- NOTE | 2019-09-24 11:14 | ONC FU_ITS ---
[facility] Patient Note Patient: Farhad Begum Unit #: [id number]: 1945 Dictated By: Kassi PerdomoDate of Visit: September 19, 2019 Onc MED Follow-Up/Prog Note Chief Complaint: urinary bladder cancer History of Present Illness: Mr. Begum, is a 73-year-old gentleman with history of superficial bladder cancer who has been treated with intravesical BCG treatment in the past and recently underwent TURBT on 05/14/2019 and anterior bladder wall lesion was completely removed and final pathology report came back papillary urothelial carcinoma, high-grade. Carcinoma invades into lamina propria, no muscularis propria present for evaluation eg pT1 Left lateral bladder wall lesion was also biopsied and it showed reactive atypical urothelium in the background of abundant admitted this polypoid granulation tissue no malignancy identified no dysplasia seen. Biopsy from bladder, left trigone shows carcinoma in situ no invasive malignancy seen. 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 Patient denies any specific complaints, denies any hematuria, denies any abdominal pain, denies any new bony pains, denies any weight loss, denies any fever chills or dysuria. 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 He presented for follow-up on September [address] Bermudez for Keytruda. However he had developed a rash on his forearms and hands at that time. Dr. Bermudez opted to hold his Keytruda and have him return in 2 weeks. He is here today for that follow-up. He states the rash is some better but has not gone away. He states is not particularly itchy it is just there. He denies any fever or chills. He has had no other rashes. He denies any mouth sores, sore throat or difficulty swallowing. He denies any shortness of breath orthopnea. He said no abdominal cramps or diarrhea. He states his bowel and bladder are normal for him. He denies any lower extremity edema. His ECOG is 1. Past Medical History: Bph Hypertension Past Surgical History: Biopsy of bladder muscle TURBT Allergies: No Known Allergies. Medications: Cefuroxime Axetil 1 Tablet (of 500 mg) Oral b.i.d. DHS Zinc Shampoo Topical PRN Potassium Chloride Mile ER 3 Tablet (of 10 meq) Tablet, controlled release Oral b.i.d. Procardia XL 1 Tablet (of 60 mg) Tablet SR 24 HR Oral b.i.d. Sulfacetamide Sodium Cream Topical PRN Tamsulosin HCl 2 Capsule (of 0.4 mg) Oral at bedtime Triamterene-HCTZ 1 Capsule (of 37.5-25 mg) Oral b.i.d. ZyrTEC Allergy 1 Capsule (of 10 mg) Oral daily PRN Family History: Mr. Begum's mother at age 77: kidney disease, and stroke. Mr. Begum's father at age 82: heart disease. Mr. Begum has 2 sisters: 2 . Social History: Mr. Begum is . Mr. Begum no longer smokes. He is an active drinker.He has indicated exposure to the following products: chewing tobacco. pt states he drinks one shot once a day of bourbon. He also chews tobacco two cans a week. Review Of Symptoms: Constitutional Denies fevers, chills, night sweats, excessive fatigue or weight loss. Allergic/Immunologic No reactions. Eyes Denies significant visual changes. No diplopia. No amaurosis. ENMT Denies changes in hearing, sore throat, mouth sores, difficulty or changes in swallowing ability, and/or sinus drainage. Endocrine No diabetes, thyroid disease or hormone replacement. Denies hot flashes or night sweats. Hematologic/Lymphatic Denies easy bruising or bleeding. The patient denies any tender or palpable lymph nodes. Respiratory Denies dyspnea on exertion, chest pain, cough or hemoptysis. Denies orthopnea. Cardiovascular Denies anginal chest pain, palpitations or orthopnea. Gastrointestinal Denies nausea, vomiting, diarrhea, GI bleeding, or constipation. Denies change in bowel habits and/or stool color, no heartburn or early satiety. Genitourinary (M) Denies hematuria, dysuria, increased frequency, urgency, hesitancy or incontinence. Musculoskeletal Denies joint pain, swelling or redness. No decreased range of motion. Integumentary see physical exam section Neurologic Denies headache, blurred vision, and no areas of focal weakness or numbness. Normal gait. No sensory problems. Psychiatric Denies insomnia, depression, [place] or mood swings. Vital Signs: Performed on September 19, 2019 13:56 Height - 72.00 in Weight - 212.2 lbs BSA - 2.18 sq.m BMI - 28.78 Temperature - 98.2 F (LOW) Pulse - 87 /min Respiration - 20 /min BP - 157/73 mm(hg) (HIGH) O2 Sat - 97 % Pain - 0,0 - Fully active, able to carry on all predisease activities without restrictions. (ECOG) Physical Examination: Constitutional Alert, oriented, no acute distress. Skin pink, warm and dry. Head Normocephalic; atraumatic. Eyes Conjunctivae and sclerae are clear and without icterus. Pupils are reactive and equal. Neck Supple without masses or thyromegaly. No jugular venous distension. Hematologic/Lymphatic No petechiae or purpura. No tender or palpable lymph nodes in the cervical or supraclavicular areas. Respiratory Lungs are clear to auscultation without rhonchi or wheezing. Cardiovascular Regular rate and rhythm of heart without murmurs,clicks, gallops or rubs. Chest Chest is symmetric without chest wall deformities. Abdomen Non-tender, non-distended, no masses or ascites. No guarding or rebound tenderness. No pulsatile masses. Back/Spine Non-tender to palpation. Extremities No visible deformities, no cyanosis, clubbing or edema. Musculoskeletal No tenderness or swelling, normal range of motion without obvious weakness. Integumentary as above-mild red, raised maculopapular rash on forearms, hands and neck. No exudate, no vesicles. He states he had been out in the sun prior to developing the rash. However he states that he had on a long sleeve shirt with a sleeved T-shirt underneath that. He states from where of the sleeve of the T-shirt covered his upper arm and shoulder there is no rash however below that T shirt sleeve is where the rash developed. He again stated that he was wearing a long sleeve shirt. He was not wearing sunscreen at the time. Neurologic No sensory or motor deficits, normal cerebellar function, normal gait. Psychiatric Alert and oriented times three. Coherent speech. Verbalizes understanding of our discussions today. Laboratory:Test performed on September 03, 2019 07:20 Sodium 138 mmol/L TSH 0.91 uIU/mL Potassium 3.8 mmol/L Chloride 95 mmol/L CO2 28 mmol/L Anion Gap 18.8 BUN 20 mg/dL Creatinine 0.9 mg/dL Cr Clearance (Est) 98.4600 mL/min Glucose 142 mg/dL Calcium 9.9 mg/dL Protein, Total 7.7 g/dL Albumin 4.2 g/dL Globulin 3.5 g/dL Bilirubin, Total 0.4 mg/dL ALT (SGPT) 36 U/L AST (SGOT) 31 U/L Alkaline Phosphatase 72 IU/L WBC 6.3 10 3/uL RBC 5.81 10 6/uL HGB 16.1 g/dL HCT 49.8 % MCV 85.7 fL MCH 27.7 pg MCHC 32.3 g/dL RDW 13.5 % Platelet Count 306 10 3/cmm MPV 11.0 fL Neutrophils 4.3 10 3/uL Lymphocytes 1.1 10 3/uL Monocytes 0.7 10 3/uL Eosinophils 0.2 10 3/uL Basophils 0.1 10 3/uL Neutrophil % 67.7 % Lymphocyte % 17.3 % Monocyte % 10.6 % Eosinophil % 3.0 % Basophils % 0.8 % Impression: Papillary urothelial carcinoma, high-grade, involving anterior urinary bladder wall, per TURBT done on 05/14/2019, final pathology report showed carcinoma invades into lamina propria, no muscularis propria present for evaluation pT1 Status post intravesical therapy with BCG now 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 Started on 3 weekly Keytruda on 07/24/2019. His Keytruda is currently on hold due to maculopapular rash on forearms and hands. Plan: 1. We will hold Keytruda once again for the maculopapular rash on his arms and hands. 2. Per Dr. Bermudez referral to dermatology in [place] 3. We will hold treatment until he has had referral and evaluation by dermatology. 4. Mr. Begum was instructed to contact us after he has his appointment so that we will know when to set him up for follow-up here. 5. He was instructed to contact us in interim should questions or problems arise. Signed By: Kassi Perdomo-, CNP Bambi Bermudez MD <<Signature on File>>
== END 2019-09-23 23:59 | disposition home or self-care (01) ==
LOC: ONCMED 06:43
PROVIDERS: Internal Medicine Hematology & Oncology; PCP Family Medicine; Visit Provider Nurse Practitioner
DX: C67.3 Malignant neoplasm of anterior wall of bladder (principal); R21 Rash and other nonspecific skin eruption; Z79.899 Other long term (current) drug therapy
CPT/HCPCS: 80053; 84443; 85025; 99214

== ENCOUNTER 2019-12-24 08:18 | Outpatient (CLI) | payer MEDICARE, OTHER, SELFPAY ==
--- NOTE | 2019-12-24 16:16 | ONC FU_ITS ---
Dr. Bermudez follow up note Patient: Farhad Begum Unit #: [id number]: 1945 Dicatated By: Bambi Bermudez M.D.Date of Visit:Dec 24, 2019 Onc Med Follow-up/Prog Note History of Present Illness: Mr. Begum, is a 74-year-old gentleman with history of superficial bladder cancer who has been treated with intravesical BCG treatment in the past and recently underwent TURBT on 05/14/2019 and anterior bladder wall lesion was completely removed and final pathology report came back papillary urothelial carcinoma, high-grade. Carcinoma invades into lamina propria, no muscularis propria present for evaluation eg pT1 Left lateral bladder wall lesion was also biopsied and it showed reactive atypical urothelium in the background of abundant admitted this polypoid granulation tissue no malignancy identified no dysplasia seen. Biopsy from bladder, left trigone shows carcinoma in situ no invasive malignancy seen. 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 Patient denies any specific complaints, denies any hematuria, denies any abdominal pain, denies any new bony pains, denies any weight loss, denies any fever chills or dysuria. 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 He presented for follow-up on September 02 with a rash on his forearms and hands at that time, opted to hold his Keytruda and have him return in 2 weeks. with that rash was better but has not gone away. was not particularly itchy it was just there. Patient was referred to dermatology Dr. Diaz, whom he saw on October 29, 2019and his impression was that the rash was not appear to be drug related and immunotherapy can be started again. Patient was given TAC cream Came for follow-up, denies any specific complaint, rash over his bilateral arm is almost resolved, no fever chills, no hematuria no dysuria, no shortness of breath, no diarrhea or constipation, no jaundice. Medications: Cefuroxime Axetil 1 Tablet (of 500 mg) Oral b.i.d., DHS Zinc Shampoo Topical PRN, Potassium Chloride Mile ER 3 Tablet (of 10 meq) Tablet, controlled release Oral b.i.d., Procardia XL 1 Tablet (of 60 mg) Tablet SR 24 HR Oral b.i.d., Sulfacetamide Sodium Cream Topical PRN, Tamsulosin HCl 2 Capsule (of 0.4 mg) Oral at bedtime, Triamterene-HCTZ 1 Capsule (of 37.5-25 mg) Oral b.i.d., ZyrTEC Allergy 1 Capsule (of 10 mg) Oral daily PRN Allergies: No Known Allergies. Review of Systems: Constitutional - Appetite is good and weight is stable. No fever, chills, hot flashes, or night sweats. Energy level is good, ENMT - Positive for sinus congestion/drainage. No mouth sores. No sore throat or difficulty swallowing, Hematologic/Lymphatic - Positive for easy bruising, Respiratory - No shortness of breath. No cough. No pleuritic pain or hemoptysis, Cardiovascular - No angina pain. No palpitations, Gastrointestinal - No nausea or vomiting. No heartburn or acid reflux. No diarrhea, no constipation. No blood in the stool or black stools, Genitourinary (M) - No dysuria or hematuria. Positive for urinary frequency. No urgency or incontinence, Musculoskeletal - No joint or bone pain, Neurologic - No headache or dizziness. No numbness/paresthesias or other focal neurologic symptoms, Psychiatric - No anxiety or depression. No insomnia. Vital Signs: Performed on Dec 24, 2019 08:26 Height - 72.00 in Weight - 224.0 lbs (HIGH) BSA - 2.24 sq.m BMI - 30.38 (HIGH) Temperature - 97.6 F (LOW) Pulse - 79 /min Respiration - 24 /min BP - 158/66 mm(hg) (HIGH) O2 Sat - 96 % Pain - 0 Performance Status: 0 - Fully active, able to carry on all predisease activities without restrictions. (ECOG) Physical Examination: ENMT - No mouth sores, no thrush, no jaundice, Respiratory - Lungs are clear, Cardiovascular - Regular rate and rhythm of heart, Abdomen - Soft, bowel sounds present, Extremities - No visible edema but mild erythema involving upper extremities. Lab/Imaging: Test performed on September 03, 2019 07:20 Sodium 138 mmol/L TSH 0.91 uIU/mL Potassium 3.8 mmol/L Chloride 95 mmol/L CO2 28 mmol/L Anion Gap 18.8 BUN 20 mg/dL Creatinine 0.9 mg/dL Cr Clearance (Est) 98.4600 mL/min Glucose 142 mg/dL Calcium 9.9 mg/dL Protein, Total 7.7 g/dL Albumin 4.2 g/dL Globulin 3.5 g/dL Bilirubin, Total 0.4 mg/dL ALT (SGPT) 36 U/L AST (SGOT) 31 U/L Alkaline Phosphatase 72 IU/L WBC 6.3 10 3/uL RBC 5.81 10 6/uL HGB 16.1 g/dL HCT 49.8 % MCV 85.7 fL MCH 27.7 pg MCHC 32.3 g/dL RDW 13.5 % Platelet Count 306 10 3/cmm MPV 11.0 fL Neutrophils 4.3 10 3/uL Lymphocytes 1.1 10 3/uL Monocytes 0.7 10 3/uL Eosinophils 0.2 10 3/uL Basophils 0.1 10 3/uL Neutrophil % 67.7 % Lymphocyte % 17.3 % Monocyte % 10.6 % Eosinophil % 3.0 % Basophils % 0.8 % Impression: Papillary urothelial carcinoma, high-grade, involving anterior urinary bladder wall, per TURBT done on 05/14/2019, final pathology report showed carcinoma invades into lamina propria, no muscularis propria present for evaluation pT1 Status post intravesical therapy with BCG now 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 Started on 3 weekly Keytruda on 07/24/2019. His Keytruda is currently on hold due to maculopapular rash on forearms and hands. Plan: Discussed with patient regarding his question concern, his skin rash involving bilateral upper extremities almost resolved now with mild erythema,, the last dose of Keytruda was given about 2 months ago he was told rash could not be due to immunotherapy., But there is a concern, we will discuss with Dr. Gonzalez regarding patient's disease status e.g. if cystoscopy is needed prior to restarting Keytruda or if not then we may start him on Keytruda and monitor him closely patient will return to clinic after urology evaluation And consider restarting Keytruda and monitor him closely. Signed By: Bambi Bermudez M.D. <<Signature on File>>
== END 2019-12-24 08:19 | disposition home or self-care (01) ==
LOC: ONCMED 08:21
PROVIDERS: PCP Family Medicine; Visit Provider Internal Medicine Hematology & Oncology
DX: C67.0 Malignant neoplasm of trigone of bladder (principal); N40.0 Benign prostatic hyperplasia without lower urinary tract symptoms; I10 Essential (primary) hypertension
CPT/HCPCS: 99214

== ENCOUNTER → 2020-01-04 09:30 | Outpatient (BNVA) | payer MEDICARE, OTHER, SELFPAY | PROVIDERS: PCP Family Medicine; Visit Provider Urology | DX: C67.8 Malignant neoplasm of overlapping sites of bladder (principal) | CPT/HCPCS: 81001 ==

== ENCOUNTER → 2020-01-22 08:35 | Outpatient (BNVA) | payer MEDICARE, OTHER, SELFPAY | PROVIDERS: PCP Family Medicine; Visit Provider Nurse Practitioner Family | DX: C67.8 Malignant neoplasm of overlapping sites of bladder (principal) | CPT/HCPCS: 87635 ==

== ENCOUNTER 2020-01-24 15:35 | Observation (INO) | payer MEDICARE, OTHER, SELFPAY ==
[2020-01-23 12:45] VITALS: BMI 28.6
[2020-01-24] VITALS (12 sets, daily range): BP systolic 125–158; BP diastolic 66–82; PULSE 65–113; RESP 15–20; TEMP 35.8–36.9; O2SAT 93–100
--- NOTE | 2020-01-24 12:23 | ANES.PREANE2 ---
Pre-Anesthetic Assessment Pre-Anesthetic Assessment: Height/Weight: Height 1.83 m Weight 95.708 kg Temp 96.9 F L 01/24/20 11:56 Preop Diagnosis: Bladder cancer Proposed Procedure: Operation Date: 01/24/20 13:15 Proposed Procedures p Cystoscopy 68690 C67.8(Not Applicable) - Leo Gonzalez MD s Transurethral Resection Bladder Tumor(Not Applicable) - Leo Gonzalez MD Familial anesthetic complications: Difficult airway requiring glidescope (shaw 2 and 3 w/ bougie failed) and glidescope gave grade III view. He has done well in LMAs in taco past Was Beta Whit taken within 24 hours: N/A Last intake: Intake Last Liquid Date 01/24/20 Last Liquid Time 06:30 Last Solid Date 01/23/20 Last Solid Time 18:00 Social: Social History: No alcohol and No tobacco Comment: former smoker Exam: Pre-Anes Outpt Exam: alert, oriented x 3, clear to auscultation bilaterally and regular rate & rhythm Airway: Cervical ROM: WNL MP: 3 Dentition: Other (missing) CV/HEM: CV/HEM: HTN Anesthetic Plan: ASA status: 3 Anesthesia: General Other: Will place LMA if surgeon ok and no high risk of obturator nerve stimulation. Otherwise will proceed with Glidescope intubation. Patient is documented as an easy bag mask ventilation. Risk of > 500 ml blood loss (7ml/kg in children): No PFSH Anesthesia PFSH: Medical History (Updated 01/04/20 @ 11:23 by Leo Gonzalez MD) Hypertension Malignant neoplasm of overlapping sites of bladder Patient with history of carcinoma in situ treated with prolonged BCG. After failed BCG started KEYTRUDA with cystoscopic evidence of improvement December 2019 Surgical History H/O transurethral destruction of bladder lesion Family History Father , IN HIS 80'S CAD (coronary artery disease) Mother , IN HER 70'S Chronic kidney disease (CKD) Social History Smoking and tobacco status: former smoker Alcohol intake: current Alcohol intake frequency: few times a month Marital status: Current occupational status: retired History of recent travel: No Data Anesthesia Cardiac Studies: No Data to Display
[2020-01-24] MEDS: sodium chloride 0.9% 1,000 ML 30 ML IV (12:24)
--- NOTE | 2020-01-24 14:24 | W.PM.OPSUD ---
Surgery/Procedure H&P Update DATE OF PROCEDURE: January 24, 2020 DATE H&P PERFORMED: 01/04/20 H&P UPDATE INFORMATION: I have reviewed H&P completed within last 30 days, I have examined patient prior to procedure, No changes to prior documentation and H&P is in [facility] EMR on date indicated CHANGES TO PREVIOUS DOCUMENTATION: Plans for rebiopsy following systemic therapy for refractory CIS. PREOP DIAGNOSIS: Bladder cancer PLANNED PROCEDURE: Operation Date: 01/24/20 13:15 Proposed Procedures p Cystoscopy 41995 C67.8(Not Applicable) - Leo Gonzalez MD s Transurethral Resection Bladder Tumor(Not Applicable) - Leo Gonzalez MD
--- NOTE | 2020-01-24 15:09 | P.OP_ITS ---
Operative Report Date of procedure: January 24, 2020 Pre-op Diagnosis: Recurrent TCCA of the bladder, carcinoma in situ Post-op diagnosis: same Procedure Done: 1. Cystoscopy, transurethral biopsy/fulguration of recurrent bladder tumor (>2. 5 cm) Specimens removed/disposition: 4 sampled sites. 2 suspicious for carcinoma in situ. 2 with erythematous mucosa only Surgeon: Carlos Anesthesia: General Estimated blood loss: Less than 10 cc Urine output: Not measured Complications: None Findings: 2 areas with both papillary/flat lesions suspicious for recurrent carcinoma in situ. 2 other areas with erythematous mucosa. . Condition: stable Disposition: PACU Brief History: Mr. Begum is a very pleasant 74-year-old white male with a history of chronic cystitis cystica, carcinoma in situ. He has undergone multiple intravesical therapies without success with recurrence proven on multiple biopsies. Recently was considered for bladder sparing Keytruda in lieu of cystectomy. He has been treated with that and follow-up cystoscopy showed substantial improvement in the mucosal appearance of his bladder but with 2 areas of persistent concern for residual carcinoma in situ and couple other areas in the bladder showing just erythematous mucosa. He was admitted for sampling and fulguration of those areas. . Procedure: After routine preoperative evaluation examination and obtaining of informed consent he was taken to the operating suite on 01/24/2020 where general anesthesia was administered without difficulty after appropriate timeout was performed, SCDs confirmed to be functioning, preoperative antibiotics administered, beta-china protocol confirmed. Prepped and draped in the usual sterile fashion in dorsolithotomy position pain careful attention to avoiding pressure points. 21 [place] cystoscope with 30 degree lens was introduced into the urethral meatus and advanced into the bladder under videoscopy. The bladder was systematically examined with 30 and 70 degree lenses. The areas of concern mentioned above were not close to the orifices at all. Cold cup biopsy forceps were utilized to sample to 4 areas described above with complete resection of the papillary/flat suspicious for carcinoma in situ mucosa. The largest diameter of fulguration in these areas was >2.5 cm. Complete hemostasis was obtained with Bugbee cautery probes and the bladder was drained at the completion of the procedure with a 20 [place] catheter with 10 cc placed in the balloon. PLANS: Admit for observation status with anticipated discharge tomorrow .
--- NOTE | 2020-01-24 15:20 | SUR.PHASEI ---
1520- ORAL AIRWAY OUT, SIMPLE MASK IN PLACE AT 6LPM, SAT 99%
--- NOTE | 2020-01-24 15:30 | ANE.PACU2 ---
Inpatient post-anesthesia follow up: Airway intact: Yes Vital signs: Temperature 98.5 F Pulse Rate 69 Respiratory Rate 17 Blood Pressure 141/73 Pulse Oximetry 95 Oxygen Delivery Me thod Room Air Oxygen Flow Rate 6 Fraction of Inspir ed Oxygen Hydration adequate: Yes Nausea and vomiting: No Pain level: 3 Mental status: Baseline
[2020-01-24] MEDS: NIFEdipine ER (24 hr) 30 mg Tablet 60 MG PO (18:31)
[2020-01-24] MEDS: tamsulosin 0.4 mg Capsule PO (18:31)
[2020-01-24] MEDS: potassium chloride ER 10 mEq Tablet 30 MEQ PO (18:31)
[2020-01-24] MEDS: D5-NS 0.45% + KCL 20 mEq 20 MEQ/1,000 ML BAG 30 MEQ IV (20:13)
[2020-01-25 00:33] VITALS: BP 112/71; PULSE 61; RESP 17; TEMP 36.8; O2SAT 93
[2020-01-25 04:00] VITALS: BP 128/78; PULSE 53; RESP 16; TEMP 36.8; O2SAT 94
--- NOTE | 2020-01-25 06:39 | PC.NURSE ---
Pt did well tonight. No complaints of pain. Pt had good urinary output with clear, yellow urine.
[2020-01-25 07:25] VITALS: BP 115/69; PULSE 54; RESP 18; TEMP 36.4; O2SAT 91
[2020-01-25 08:21] VITALS: BP 117/70; PULSE 56; RESP 18; TEMP 36.6; O2SAT 92
[2020-01-25] MEDS: cetirizine 10 mg Tablet PO (08:37)
[2020-01-25] MEDS: tamsulosin 0.4 mg Capsule PO (08:38)
[2020-01-25] MEDS: NIFEdipine ER (24 hr) 30 mg Tablet 60 MG PO (08:39)
[2020-01-25] MEDS: potassium chloride ER 10 mEq Tablet 30 MEQ PO (08:39)
[2020-01-25 11:53] VITALS: BP 128/68; PULSE 56; RESP 18; TEMP 36.6; O2SAT 93
--- NOTE | 2020-01-25 12:28 | P.DS_ITS ---
Discharge Providers Date of Admission: 01/24/20 15:35 Date of Discharge: January 25, 2020 Attending Provider at Admission: Leo Gonzalez MD Attending Provider at Discharge: Leo Gonzalez MD Primary Care Provider: Marino Peguero DO Diagnoses at Discharge Discharge Diagnosis (1) Malignant neoplasm of overlapping sites of bladder: Status: Chronic Problem details: Patient with history of carcinoma in situ treated with prolonged BCG. After failed BCG started KEYTRUDA with cystoscopic evidence of improvement December 2019 (2) Hypertension: Status: Acute Qualifiers: Hypertension type: essential hypertension Qualified Code(s): I10 - Essential (primary) hypertension Reason for Visit Reason for Visit: cystoscopy Hospital Course Hospital Course: He was admitted on the day of the procedure which went well. 4 distinct areas were sampled in his bladder. 2 of them appear to be consistent with a residual or recurrent CIS. The other 2 are just erythematous mucosa. Catheter maintained overnight and on postoperative day #1 the Ornelas was removed without difficulty. He voided spontaneously with clearing urine and good emptying as confirmed via bladder scans. Discharged on the afternoon of postoperative day #1 in stable condition. Physical Exam Const: COMMON NORMALS: no acute distress, alert and well nourished GENERAL APPEARANCE: well kempt and well developed ORIENTATION/CONSCIOUSNESS: not confused Neck/C-Spine: COMMON NORMALS: full ROM GENERAL: Yes normal visual inspection Resp: COMMON NORMALS: normal respiratory effort EFFORT & INSPECTION: No labored and No Actively coughing : OTHER: Bladder is nondistended. Neuro: SENSORIUM/ORIENTATION: Yes alert Psych: COMMON NORMALS: mental status grossly normal APPEARANCE: Yes grossly normal and Yes well kempt ATTITUDE: Yes calm and Yes engaged Urinary Catheter Management^: 2-way Urethral: Cath Placed During This Visit: no Discharge Data Data Completed and Pending: Pending at discharge Category Date Time Status Pathology: Surgic al [PTH] Routine Pth 01/24/20 15:18 Ordered Vitals: Last Vital Signs Temp 97.8 F 01/25/20 11:53 Pulse 56 L 01/25/20 11:53 Resp 18 01/25/20 11:53 BP 128/68 01/25/20 11:53 Pulse Ox 93 01/25/20 11:53 Discharge Plan Discharge Patient Disposition: Home Condition: Stable Prescriptions: No Action cetirizine 10 mg capsule 10 mg PO DAILY RF: 0 DHS Zinc 2 % shampoo 1 applic TOPICAL DAILY RF: 0 sulfacetamide sodium (acne) 10 % suspension 1 applic TOPICAL DAILY RF: 0 potassium chloride 10 mEq capsule, extended release 10 meq PO .COMPLEX Qty: 90 RF: 3 tamsulosin 0.4 mg capsule 0.4 mg PO BID Qty: 180 RF: 3 triamterene-hydrochlorothiazid [Dyazide] 37.5-25 mg capsule 1 cap PO BID Qty: 180 RF: 3 nifedipine [Procardia XL] 60 mg tablet extended release 24hr 60 mg PO BID Qty: 180 RF: 3 Discharge Orders: Discharge Order (Routine); Ordered 01/25/20 Ordered By: Leo Gonzalez Referrals: Leo Gonzalez MD [Physician] - 3 months Discharge Diet: Usual diet Discharge Activity: Limit activity as instructed Activity Restrictions/Additional Instructions: Avoid lifting heavier than 10 pounds for 3 weeks. Call for difficulty voiding. It is important to avoid over distention of the bladder. The pathology report should be available late next week. Discharge Attestations Time Spent in Discharge Care*: less than 30 min Status at Discharge: Cognitive status at discharge: cognitively intact , Behavioral status at discharge: cooperative , Quality Metrics Clinical Quality Measures During this hospital stay, did patient experience: None Coding Level of Care Code Acute Makeup Sales Consultant for Chg Fwd Diagnoses Malignant neoplasm of overlapping sites of bladder C67.8 Hypertension I10 Hypertension type: essential hypertension
--- NOTE | 2020-01-25 12:31 | ANE.PACU2 ---
Inpatient post-anesthesia follow up: Airway intact: Yes Vital signs: Temperature 97.8 F Pulse Rate 56 Respiratory Rate 18 Blood Pressure 128/68 Pulse Oximetry 93 Oxygen Delivery Me thod [ Room Air Current Rate & Del deepak] Oxygen Delivery Me thod Room Air Oxygen Flow Rate 3 Fraction of Inspir ed Oxygen Hydration adequate: Yes Nausea and vomiting: No Pain level: 1 Mental status: Baseline
[2020-01-25 12:34] VITALS: BP 128/68; PULSE 56; RESP 18; TEMP 36.6; O2SAT 93
--- NOTE | 2020-01-25 13:54 | PC.NURSE ---
adan removed at 0800, voided 6 times since and had 0 to a trace amount of urine in the bladder when scanned each time. dr roajs.
== END 2020-01-25 13:37 | disposition home or self-care (01) ==
LOC: MEDSURG 15:36
PROVIDERS: Admitting Provider Urology; PCP Family Medicine; Visit Provider Urology
PROC: 0TJB8ZZ Inspection of Bladder, Via Natural or Artificial Opening Endoscopic (ICD-10-PCS; CPT 52000; principal; 2020-01-24 13:15)
PROC: 0TBB8ZZ Excision of Bladder, Via Natural or Artificial Opening Endoscopic (ICD-10-PCS; CPT 52235; 2020-01-24 13:15)
DX: C67.8 Malignant neoplasm of overlapping sites of bladder (principal); I10 Essential (primary) hypertension; Z87.891 Personal history of nicotine dependence
CPT/HCPCS: 52235; 12345; 88305; G0378; J7030

== ENCOUNTER 2020-03-17 11:18 | Outpatient (CLI) | payer MEDICARE, OTHER, SELFPAY ==
[2020-03-17 12:08] LABS: Basophils # 0.1 10^3/uL (0.0-0.1); Basophils % 0.7 %; Eosinophils # 0.1 10^3/uL (0.0-0.8); Eosinophils % 0.7 %; Hematocrit 46.2 % (42.0-52.0); Hemoglobin 15.4 g/dL (11.7-16.6); Lymphocytes # 1.3 10^3/uL (0.8-4.8); Lymphocytes % 15.3 %; Mean Corpuscular HGB Conc 33.3 g/dL (30.0-36.0); Mean Corpuscular Hemoglobin 28.5 pg (28.0-34.0); Mean Corpuscular Volume 85.6 fL (80-94); Mean Platelet Volume 11.6 fL (7.4-10.4); Monocytes # 0.7 10^3/uL (0.2-0.9); Monocytes % 8.4 %; Neutrophils # 6.33 10^3/uL (1.8-7.7); Neutrophils % 74.4 %; Nucleated Red Blood Cells % 0 %; Platelet Count 220 10^3/cmm (130-400); Red Cell Distribution Width 13.7 % (12.1-15.1); White Blood Count 8.5 10^3/uL (4.0-10.0)
[2020-03-17 12:37] LABS: Alanine Aminotransferase 24 U/L (0-41); Albumin Level 4.5 g/dL (3.5-5.2); Alkaline Phosphatase 71 IU/L (40-130); Anion Gap 15.6 (5-19); Aspartate Amino Transferase 31 U/L (0-40); Blood Urea Nitrogen 17 mg/dL (8-23); Calcium 9.6 mg/dL (8.5-10.5); Carbon Dioxide 28 mmol/L (22-29); Chloride 101 mmol/L (98-107); Glucose 123 mg/dL (65-115); Osmolality Calculated 295 mOsm/kg (285-295); Potassium 3.6 mmol/L (3.5-5.1); Sodium 141 mmol/L (136-145); Total Bilirubin 0.5 mg/dL (0.15-1.2); Total Protein 7.5 g/dL (6.6-8.7)
--- NOTE | 2020-03-17 13:52 | ONC FU_ITS ---
[facility] Patient Note Patient: Farhad Begum Unit #: [id number]: 1945 Dictated By: Kassi PerdomoDate of Visit: Mar 17, 2020 Onc MED Follow-Up/Prog Note Chief Complaint: urinary bladder cancer History of Present Illness: Mr. Begum, is a 74-year-old gentleman with history of superficial bladder cancer who has been treated with intravesical BCG treatment in the past and recently underwent TURBT on 05/14/2019 and anterior bladder wall lesion was completely removed and final pathology report came back papillary urothelial carcinoma, high-grade. Carcinoma invades into lamina propria, no muscularis propria present for evaluation eg pT1 Left lateral bladder wall lesion was also biopsied and it showed reactive atypical urothelium in the background of abundant admitted this polypoid granulation tissue no malignancy identified no dysplasia seen. Biopsy from bladder, left trigone shows carcinoma in situ no invasive malignancy seen. 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 Patient denies any specific complaints, denies any hematuria, denies any abdominal pain, denies any new bony pains, denies any weight loss, denies any fever chills or dysuria. 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 He presented for follow-up on September 02 with a rash on his forearms and hands at that time, opted to hold his Keytruda and have him return in 2 weeks. with that rash was better but has not gone away. was not particularly itchy it was just there. Patient was referred to dermatology Dr. Diaz, whom he saw on October 29, 2019and his impression was that the rash was not appear to be drug related and immunotherapy can be started again. Patient was given TAC cream. Mr Begum's last immunotherapy was August 14, 2019. He had bladder biopsy per Dr Gonzalez on 01/24/2020. 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 No invasive carcinoma identified . Mr Begum presents today for followup and Dr Bermudez is out of the office today. He has no new concerns and states his voiding is better overall. Fever or chills. He denies any trouble swallowing. He has had no shortness of breath orthopnea. He states his energy is about the same as it has been for the last 6 months. He denies any nausea or vomiting. He denies any diarrhea or constipation. 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 His ECOG is 1. Past Medical History: Bph Hypertension Past Surgical History: Biopsy of bladder muscle TURBT Allergies: No Known Allergies. Medications: Cefuroxime Axetil 1 Tablet (of 500 mg) Oral b.i.d. DHS Zinc Shampoo Topical PRN Potassium Chloride Mile ER 3 Tablet (of 10 meq) Tablet, controlled release Oral b.i.d. Procardia XL 1 Tablet (of 60 mg) Tablet SR 24 HR Oral b.i.d. Sulfacetamide Sodium Cream Topical PRN Tamsulosin HCl 2 Capsule (of 0.4 mg) Oral at bedtime Triamterene-HCTZ 1 Capsule (of 37.5-25 mg) Oral b.i.d. ZyrTEC Allergy 1 Capsule (of 10 mg) Oral daily PRN Family History: Mr. Begum's mother at age 77: kidney disease, and stroke. Mr. Begum's father at age 82: heart disease. Mr. Begum has 2 sisters: 2 . Social History: Mr. Begum is . He is an occasional smoker. He is an active drinker.He has indicated exposure to the following products: chewing tobacco. pt states he drinks one shot once a day of bourbon. He also chews tobacco two cans a week. Review Of Symptoms: Constitutional Denies fevers, chills, night sweats, excessive fatigue or weight loss. Allergic/Immunologic No reactions. Eyes Denies significant visual changes. No diplopia. No amaurosis. ENMT Denies changes in hearing, sore throat, mouth sores, difficulty or changes in swallowing ability, and/or sinus drainage. Hematologic/Lymphatic Denies easy bruising or bleeding. The patient denies any tender or palpable lymph nodes. Respiratory Denies dyspnea on exertion, chest pain, cough or hemoptysis. Denies orthopnea. Cardiovascular Denies anginal chest pain, palpitations or orthopnea. Gastrointestinal Denies nausea, vomiting, diarrhea, GI bleeding, or constipation. Denies change in bowel habits and/or stool color, no heartburn or early satiety. Genitourinary (M) Denies hematuria, dysuria, increased frequency, urgency, hesitancy or incontinence. Musculoskeletal Denies joint pain, swelling or redness. No decreased range of motion. Integumentary see physical exam section Neurologic Denies headache, blurred vision, and no areas of focal weakness or numbness. Normal gait. No sensory problems. Psychiatric Denies insomnia, depression, [place] or mood swings. Vital Signs: Performed on Mar 17, 2020 13:10 Height - 72.00 in Weight - 217.2 lbs (LOW) BSA - 2.21 sq.m BMI - 29.46 Temperature - 98.2 F (LOW) Pulse - 81 /min Respiration - 18 /min BP - 138/69 mm(hg) O2 Sat - 94 % (LOW) Pain - 0,1 - No physically strenuous activity, but ambulatory and able to carry out light or sedentary work (e.g. office work, light house work). (ECOG) Physical Examination: Constitutional Alert, oriented, no acute distress. Skin pink, warm and dry. Head Normocephalic; atraumatic. Eyes Conjunctivae and sclerae are clear and without icterus. Pupils are reactive and equal. Respiratory Lungs are clear to auscultation without rhonchi or wheezing. Cardiovascular Regular rate and rhythm of heart without murmurs,clicks, gallops or rubs. Back/Spine Non-tender to palpation. Extremities No visible deformities, no cyanosis, clubbing or edema. Musculoskeletal No tenderness or swelling, normal range of motion without obvious weakness. Integumentary No rashes or lesions. Neurologic No sensory or motor deficits, normal cerebellar function, normal gait. Psychiatric Alert and oriented times three. Coherent speech. Verbalizes understanding of our discussions today. Laboratory:Test performed on Mar 17, 2020 11:45 Sodium 141 mmol/L Potassium 3.6 mmol/L Chloride 101 mmol/L CO2 28 mmol/L Anion Gap 15.6 BUN 17 mg/dL Creatinine 0.7 mg/dL Cr Clearance (Est) 125.11 mL/min Glucose 123 mg/dL Osmolality - Calculated 295 mOsm/kg Calcium 9.6 mg/dL Protein, Total 7.5 g/dL Albumin 4.5 g/dL Globulin 3.0 g/dL Bilirubin, Total 0.5 mg/dL ALT (SGPT) 24 U/L AST (SGOT) 31 U/L Alkaline Phosphatase 71 IU/L WBC 8.5 10 3/uL RBC 5.40 10 6/uL HGB 15.4 g/dL HCT 46.2 % MCV 85.6 fL MCH 28.5 pg MCHC 33.3 g/dL RDW 13.7 % Platelet Count 220 10 3/cmm MPV 11.6 fL Neutrophils 6.33 10 3/uL Lymphocytes 1.3 10 3/uL Monocytes 0.7 10 3/uL Eosinophils 0.1 10 3/uL Basophils 0.1 10 3/uL Neutrophil % 74.4 % Lymphocyte % 15.3 % Monocyte % 8.4 % Eosinophil % 0.7 % Basophils % 0.7 % NRBC % 0 % Impression: Papillary urothelial carcinoma, high-grade, involving anterior urinary bladder wall, per TURBT done on 05/14/2019, final pathology report showed carcinoma invades into lamina propria, no muscularis propria present for evaluation pT1 Status post intravesical therapy with BCG now 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 Started on 3 weekly Keytruda on 07/24/2019. His Keytruda is currently on hold due to maculopapular rash on forearms and hands. His last dose was 08/14/2019. Per Dr Bermudez's office note in November 2019, he discussed with patient regarding his question concern, his skin rash involving bilateral upper extremities almost resolved now with mild erythema,, the last dose of Keytruda was given about 2 months ago he was told rash could not be due to immunotherapy., But there is a concern, we will discuss with Dr. Gonzalez regarding patient's disease status e.g. if cystoscopy is needed prior to restarting Keytruda or if not then we may start him on Keytruda and monitor him closely patient will return to clinic after urology evaluation . Mr Begum is unsure of when his last followup with Dr Gonzalez was post biopsy. I did not find any notes in [facility] for a recent urology office visit. Plan: 1. He did have labs drawn today and we reviewed those in detail and a copy was offered to him, but he declined it. 2. He is aware Dr Bermudez is OOT until next week. 3. I did review the pathology from 01/24/2020 with him. 4. He is aware that we will have Dr Bermudez review his pathology and determine further plan of care and we will call him as soon as we have an answer for him. 5. Mr Begum did not have any questions but was encouraged to call us if questions or problems arise. Signed By: Kassi Perdomo-, AOCNP Bambi Bermudez MD <<Signature on File>>
== END 2020-03-17 11:19 | disposition home or self-care (01) ==
LOC: ONCMED 11:21
PROVIDERS: PCP Family Medicine; Visit Provider Nurse Practitioner
DX: C67.0 Malignant neoplasm of trigone of bladder (principal)
CPT/HCPCS: 36415; 80053; 85025

== ENCOUNTER 2020-04-14 13:53 | Outpatient (CLI) | payer MEDICARE, OTHER, SELFPAY ==
[2020-04-14 15:02] LABS: Basophils # 0.1 10^3/uL (0.0-0.1); Basophils % 0.6 %; Eosinophils % 0.5 %; Hematocrit 45.6 % (42.0-52.0); Hemoglobin 15.3 g/dL (11.7-16.6); Lymphocytes # 1.5 10^3/uL (0.8-4.8); Lymphocytes % 19.4 %; Mean Corpuscular HGB Conc 33.6 g/dL (30.0-36.0); Mean Corpuscular Hemoglobin 28.4 pg (28.0-34.0); Mean Corpuscular Volume 84.6 fL (80-94); Monocytes # 0.6 10^3/uL (0.2-0.9); Monocytes % 7.1 %; Neutrophils % 72.1 %; Nucleated Red Blood Cells % 0 %; Platelet Count 208 10^3/cmm (130-400); Red Blood Count 5.39 10^6/uL (4.1-5.3); Red Cell Distribution Width 13.4 % (12.1-15.1); White Blood Count 7.8 10^3/uL (4.0-10.0)
[2020-04-14 15:10] LABS: Alanine Aminotransferase 24 U/L (0-41); Albumin Level 4.2 g/dL (3.5-5.2); Alkaline Phosphatase 75 IU/L (40-130); Anion Gap 13.6 (5-19); Aspartate Amino Transferase 24 U/L (0-40); Blood Urea Nitrogen 19 mg/dL (8-23); Calcium 9.9 mg/dL (8.5-10.5); Carbon Dioxide 28 mmol/L (22-29); Chloride 101 mmol/L (98-107); Globulin 3.2 g/dL (1.3-4.6); Glucose 104 mg/dL (65-115); Osmolality Calculated 291 mOsm/kg (285-295); Potassium 3.6 mmol/L (3.5-5.1); Sodium 139 mmol/L (136-145); Total Bilirubin 0.5 mg/dL (0.15-1.2); Total Protein 7.4 g/dL (6.6-8.7)
--- NOTE | 2020-04-14 17:07 | ONC FU_ITS ---
Dr. Bermudez follow up note Patient: Farhad Begum Unit #: [id number]: 1945 Dicatated By: Bambi Bermudez M.D.Date of Visit:Apr 14, 2020 Onc Med Follow-up/Prog Note History of Present Illness: Mr. Begum, is a 74-year-old gentleman with history of superficial bladder cancer who has been treated with intravesical BCG treatment in the past and recently underwent TURBT on 05/14/2019 and anterior bladder wall lesion was completely removed and final pathology report came back papillary urothelial carcinoma, high-grade. Carcinoma invades into lamina propria, no muscularis propria present for evaluation eg pT1 Left lateral bladder wall lesion was also biopsied and it showed reactive atypical urothelium in the background of abundant admitted this polypoid granulation tissue no malignancy identified no dysplasia seen. Biopsy from bladder, left trigone shows carcinoma in situ no invasive malignancy seen. 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 Patient denies any specific complaints, denies any hematuria, denies any abdominal pain, denies any new bony pains, denies any weight loss, denies any fever chills or dysuria. 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 He presented for follow-up on September 02 with a rash on his forearms and hands at that time, opted to hold his Keytruda and have him return in 2 weeks. with that rash was better but has not gone away. was not particularly itchy it was just there. Patient was referred to dermatology Dr. Diaz, whom he saw on October 29, 2019and his impression was that the rash was not appear to be drug related and immunotherapy can be started again. Patient was given TAC cream. Mr Begum's last immunotherapy was August 14, 2019. He had bladder biopsy per Dr Gonzalez on 01/24/2020. 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 No invasive carcinoma identified .Case was discussed with Dr. Gonzalez, urologist said follow-up cystoscopy showed huge improvement with some area of patchy erythema but they are much smaller and less suspicious. There is one area that is more typical for residual CIS but is very small on the right lateral wall. And it was decided to continue with immunotherapy and follow-up with cystoscopy. Came for follow-up, denies any specific complaints, no fever chills, no nausea or vomiting, no diarrhea constipation, no headaches blurred vision double vision, no hematuria, no skin rash, no shortness of breath, no melena or hematochezia Medications: Cefuroxime Axetil 1 Tablet (of 500 mg) Oral b.i.d., DHS Zinc Shampoo Topical PRN, Potassium Chloride Miel ER 3 Tablet (of 10 meq) Tablet, controlled release Oral b.i.d., Procardia XL 1 Tablet (of 60 mg) Tablet SR 24 HR Oral b.i.d., Sulfacetamide Sodium Cream Topical PRN, Tamsulosin HCl 2 Capsule (of 0.4 mg) Oral at bedtime, Triamterene-HCTZ 1 Capsule (of 37.5-25 mg) Oral b.i.d., ZyrTEC Allergy 1 Capsule (of 10 mg) Oral daily PRN Allergies: No Known Allergies. Review of Systems: Constitutional - Appetite is good and weight is stable. No fever, chills, hot flashes, or night sweats. Energy level is good, ENMT - Positive for sinus congestion/drainage. No mouth sores. No sore throat or difficulty swallowing, Hematologic/Lymphatic - Positive for easy bruising, Respiratory - No shortness of breath. No cough. No pleuritic pain or hemoptysis, Cardiovascular - No angina pain. No palpitations, Gastrointestinal - No nausea or vomiting. No heartburn or acid reflux. No diarrhea, no constipation. No blood in the stool or black stools, Genitourinary (M) - No dysuria or hematuria. Positive for urinary frequency. No urgency or incontinence, Musculoskeletal - No joint or bone pain, Integumentary - Pt has slight rash on bilateral upper extremities and neck. Pt denies rash elsewhere, Neurologic - No headache or dizziness. No numbness/paresthesias or other focal neurologic symptoms, Psychiatric - No anxiety or depression. No insomnia. Vital Signs: Performed on Apr 14, 2020 15:50 Height - 72.00 in Weight - 214.6 lbs (LOW) BSA - 2.20 sq.m BMI - 29.11 Temperature - 97.8 F (LOW) Pulse - 75 /min Respiration - 14 /min BP - 153/79 mm(hg) (HIGH) O2 Sat - 96 % Pain - 0 Performance Status: 0 - Fully active, able to carry on all predisease activities without restrictions. (ECOG) Physical Examination: ENMT - No mouth sores, no thrush, no jaundice, Respiratory - Lungs are clear to auscultation, Cardiovascular - Regular rate and rhythm of heart w, Abdomen - Soft, bowel sounds present, Extremities - No visible edema or rash. Lab/Imaging: Test performed on Mar 17, 2020 11:45 Sodium 141 mmol/L Potassium 3.6 mmol/L Chloride 101 mmol/L CO2 28 mmol/L Anion Gap 15.6 BUN 17 mg/dL Creatinine 0.7 mg/dL Cr Clearance (Est) 125.11 mL/min Glucose 123 mg/dL Osmolality - Calculated 295 mOsm/kg Calcium 9.6 mg/dL Protein, Total 7.5 g/dL Albumin 4.5 g/dL Globulin 3.0 g/dL Bilirubin, Total 0.5 mg/dL ALT (SGPT) 24 U/L AST (SGOT) 31 U/L Alkaline Phosphatase 71 IU/L WBC 8.5 10 3/uL RBC 5.40 10 6/uL HGB 15.4 g/dL HCT 46.2 % MCV 85.6 fL MCH 28.5 pg MCHC 33.3 g/dL RDW 13.7 % Platelet Count 220 10 3/cmm MPV 11.6 fL Neutrophils 6.33 10 3/uL Lymphocytes 1.3 10 3/uL Monocytes 0.7 10 3/uL Eosinophils 0.1 10 3/uL Basophils 0.1 10 3/uL Neutrophil % 74.4 % Lymphocyte % 15.3 % Monocyte % 8.4 % Eosinophil % 0.7 % Basophils % 0.7 % NRBC % 0 % Impression: Papillary urothelial carcinoma, high-grade, involving anterior urinary bladder wall, per TURBT done on 05/14/2019, final pathology report showed carcinoma invades into lamina propria, no muscularis propria present for evaluation pT1 Status post intravesical therapy with BCG now 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 Started on 3 weekly Keytruda on 07/24/2019. His Keytruda is currently on hold due to maculopapular rash on forearms and hands. His last dose was 08/14/2019. in November 2019, discussed with patient regarding his question concern, his skin rash involving bilateral upper extremities almost resolved now with mild erythema,, the last dose of Keytruda was given in 08/12 he was told rash could not be due to immunotherapy.Patient underwent follow-up cystoscopy which showed huge improvement with immunotherapy Plan: Discussed with patient regarding his labs white blood count 7.8 hemoglobin 15.3 hematocrit 45.6 platelets 208,000 CMP within normal limits Clinically, patient is doing well with no new signs symptom suggestive of disease progression his follow-up cystoscopy showed excellent response to immunotherapy, case was discussed with Dr. Gonzalez urologist and it was decided to restart Keytruda every 3 weeks and then follow-up with cystoscopy after 3-4 cycle for the response. And the patient agreed and he will return to clinic after [place] to resume Keytruda every 3 weeks.. Signed By: Bambi Bermudez M.D. <<Signature on File>>
== END 2020-04-14 13:54 | disposition home or self-care (01) ==
LOC: ONCMED 13:59
PROVIDERS: PCP Family Medicine; Visit Provider Internal Medicine Hematology & Oncology
DX: C67.0 Malignant neoplasm of trigone of bladder (principal); R21 Rash and other nonspecific skin eruption; Z79.899 Other long term (current) drug therapy
CPT/HCPCS: 36415; 80053; 85025; 99214

== ENCOUNTER 2020-04-23 07:45 | Outpatient (CLI) | payer MEDICARE, OTHER, SELFPAY ==
[2020-04-23] MEDS: sodium chloride 0.9% 250 ML 75 ML IV (14:00)
== END 2020-04-23 07:46 | disposition home or self-care (01) ==
LOC: ONCMED 07:47
PROVIDERS: PCP Family Medicine; Visit Provider Internal Medicine Hematology & Oncology
DX: Z51.12 Encounter for antineoplastic immunotherapy (principal); C67.0 Malignant neoplasm of trigone of bladder
CPT/HCPCS: 96413; J7050; J9271

== ENCOUNTER 2020-05-13 09:10 | Outpatient (CLI) | payer MEDICARE, OTHER, SELFPAY ==
[2020-05-13 13:31] LABS: Basophils # 0.1 10^3/uL (0.0-0.1); Basophils % 1.1 %; Eosinophils # 0.2 10^3/uL (0.0-0.8); Eosinophils % 2.4 %; Hematocrit 46.3 % (42.0-52.0); Hemoglobin 15.4 g/dL (11.7-16.6); Lymphocytes # 1.1 10^3/uL (0.8-4.8); Lymphocytes % 15.8 %; Mean Corpuscular HGB Conc 33.3 g/dL (30.0-36.0); Mean Corpuscular Hemoglobin 28.2 pg (28.0-34.0); Mean Corpuscular Volume 84.8 fL (80-94); Mean Platelet Volume 11.6 fL (7.4-10.4); Monocytes # 0.8 10^3/uL (0.2-0.9); Monocytes % 11.6 %; Neutrophils # 4.54 10^3/uL (1.8-7.7); Neutrophils % 68.3 %; Nucleated Red Blood Cells % 0 %; Platelet Count 314 10^3/cmm (130-400); Red Blood Count 5.46 10^6/uL (4.1-5.3); Red Cell Distribution Width 12.9 % (12.1-15.1); White Blood Count 6.6 10^3/uL (4.0-10.0)
[2020-05-13 14:29] LABS: Alanine Aminotransferase 18 U/L (0-41); Alkaline Phosphatase 76 IU/L (40-130); Anion Gap 14.3 (5-19); Aspartate Amino Transferase 24 U/L (0-40); Blood Urea Nitrogen 16 mg/dL (8-23); Calcium 9.6 mg/dL (8.5-10.5); Carbon Dioxide 30 mmol/L (22-29); Chloride 94 mmol/L (98-107); Globulin 3.6 g/dL (1.3-4.6); Glucose 118 mg/dL (65-115); Osmolality Calculated 282 mOsm/kg (285-295); Potassium 3.3 mmol/L (3.5-5.1); Sodium 135 mmol/L (136-145); Total Bilirubin 0.4 mg/dL (0.15-1.2); Total Protein 7.6 g/dL (6.6-8.7)
== END 2020-05-13 09:11 | disposition home or self-care (01) ==
LOC: ONCMED 13:46
PROVIDERS: PCP Family Medicine; Visit Provider Internal Medicine Hematology & Oncology
DX: C67.0 Malignant neoplasm of trigone of bladder (principal); E03.9 Hypothyroidism, unspecified
CPT/HCPCS: 36415; 80053; 84443; 85025

== ENCOUNTER 2020-05-14 05:54 | Outpatient (CLI) | payer MEDICARE, OTHER, SELFPAY ==
--- NOTE | 2020-05-14 15:21 | ONC FU_ITS ---
Dr. Bermudez follow up note Patient: Farhad Begum Unit #: [id number]: 1945 Dicatated By: Bambi Bermudez M.D.Date of Visit:May 14, 2020 Onc Med Follow-up/Prog Note History of Present Illness: Mr. Begum, is a 74-year-old gentleman with history of superficial bladder cancer who has been treated with intravesical BCG treatment in the past and recently underwent TURBT on 05/14/2019 and anterior bladder wall lesion was completely removed and final pathology report came back papillary urothelial carcinoma, high-grade. Carcinoma invades into lamina propria, no muscularis propria present for evaluation eg pT1 Left lateral bladder wall lesion was also biopsied and it showed reactive atypical urothelium in the background of abundant admitted this polypoid granulation tissue no malignancy identified no dysplasia seen. Biopsy from bladder, left trigone shows carcinoma in situ no invasive malignancy seen. 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 Patient denies any specific complaints, denies any hematuria, denies any abdominal pain, denies any new bony pains, denies any weight loss, denies any fever chills or dysuria. 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 He presented for follow-up on September 02 with a rash on his forearms and hands at that time, opted to hold his Keytruda and have him return in 2 weeks. with that rash was better but has not gone away. was not particularly itchy it was just there. Patient was referred to dermatology Dr. Diaz, whom he saw on October 29, 2019and his impression was that the rash was not appear to be drug related and immunotherapy can be started again. Patient was given TAC cream. Mr Begum's last immunotherapy was August 14, 2019. He had bladder biopsy per Dr Gonzalez on 01/24/2020. 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 No invasive carcinoma identified .Case was discussed with Dr. Gonzalez, urologist said follow-up cystoscopy showed huge improvement with some area of patchy erythema but they are much smaller and less suspicious. There is one area that is more typical for residual CIS but is very small on the right lateral wall. And it was decided to continue with immunotherapy and follow-up with cystoscopy. Restarted on 3 weekly Keytruda on April 23, 2020 Came for follow-up, denies any specific complaints, no fever chills, no nausea or vomiting, no diarrhea constipation, no hematuria or dysuria, no skin rash, no jaundice, tolerating Keytruda well otherwise Medications: Cefuroxime Axetil 1 Tablet (of 500 mg) Oral b.i.d., DHS Zinc Shampoo Topical PRN, Potassium Chloride Mile ER 3 Tablet (of 10 meq) Tablet, controlled release Oral b.i.d., Procardia XL 1 Tablet (of 60 mg) Tablet SR 24 HR Oral b.i.d., Sulfacetamide Sodium Cream Topical PRN, Tamsulosin HCl 2 Capsule (of 0.4 mg) Oral at bedtime, Triamterene-HCTZ 1 Capsule (of 37.5-25 mg) Oral b.i.d., ZyrTEC Allergy 1 Capsule (of 10 mg) Oral daily PRN Allergies: No Known Allergies. Review of Systems: Review of Systems is not available for this patient. Vital Signs: Performed on May 14, 2020 14:54 Height - 72.00 in Weight - 216.8 lbs (HIGH) BSA - 2.20 sq.m BMI - 29.40 Temperature - 98.1 F (LOW) Pulse - 87 /min Respiration - 16 /min BP - 145/74 mm(hg) (HIGH) O2 Sat - 94 % (LOW) Pain - 0 Performance Status: 0 - Fully active, able to carry on all predisease activities without restrictions. (ECOG) Physical Examination: ENMT - No mouth sores, no thrush, no jaundice, Respiratory - Lungs are clear to auscultation, Cardiovascular - Regular rate and rhythm of heart, Abdomen - Soft, bowel sounds present, Extremities - No visible edema. Lab/Imaging: Test performed on May 13, 2020 09:10 Sodium 135 mmol/L TSH 1.20 uIU/mL Potassium 3.3 mmol/L Chloride 94 mmol/L CO2 30 mmol/L Anion Gap 14.3 BUN 16 mg/dL Creatinine 0.8 mg/dL Cr Clearance (Est) 108.1600 mL/min Glucose 118 mg/dL Osmolality - Calculated 282 mOsm/kg Calcium 9.6 mg/dL Protein, Total 7.6 g/dL Albumin 4.0 g/dL Globulin 3.6 g/dL Bilirubin, Total 0.4 mg/dL ALT (SGPT) 18 U/L AST (SGOT) 24 U/L Alkaline Phosphatase 76 IU/L WBC 6.6 10 3/uL RBC 5.46 10 6/uL HGB 15.4 g/dL HCT 46.3 % MCV 84.8 fL MCH 28.2 pg MCHC 33.3 g/dL RDW 12.9 % Platelet Count 314 10 3/cmm MPV 11.6 fL Neutrophils 4.54 10 3/uL Lymphocytes 1.1 10 3/uL Monocytes 0.8 10 3/uL Eosinophils 0.2 10 3/uL Basophils 0.1 10 3/uL Neutrophil % 68.3 % Lymphocyte % 15.8 % Monocyte % 11.6 % Eosinophil % 2.4 % Basophils % 1.1 % NRBC % 0 % Impression: Papillary urothelial carcinoma, high-grade, involving anterior urinary bladder wall, per TURBT done on 05/14/2019, final pathology report showed carcinoma invades into lamina propria, no muscularis propria present for evaluation pT1 Status post intravesical therapy with BCG now 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 Started on 3 weekly Keytruda on 07/24/2019. His Keytruda is currently on hold due to maculopapular rash on forearms and hands. His last dose was 08/14/2019. in November 2019, discussed with patient regarding his question concern, his skin rash involving bilateral upper extremities almost resolved now with mild erythema,, the last dose of Keytruda was given in 08/12 he was told rash could not be due to immunotherapy.Patient underwent follow-up cystoscopy which showed huge improvement with immunotherapy Restarted on Keytruda on April 23, 2020 Plan: ..Discussed with patient regarding his labs white blood count 6.6 hemoglobin 15.4 hematocrit 46.3 platelets 314,000 CMP within normal limit except potassium 3.3 and TSH is 1.20 Clinically, patient is doing well with no new signs symptoms, tolerating 3 weekly Keytruda well, will proceed with next dose today and then he will return to clinic in 3 weeks with CBC CMP As per the hypokalemia is concerned, patient is on potassium supplement along with diuretics as per patient he takes 30 mEq p.o. twice a day, patient was advised to take 40 mEq p.o. twice a day for 3 days then go back to 30 mEq p.o. twice daily his usual dose, will also check magnesium level, if it is low, will consider supplement. Signed By: Bambi Bermudez M.D. <<Signature on File>>
[2020-05-14 16:52] LABS: Magnesium 1.6 mg/dL (1.7-2.3)
== END 2020-05-14 05:55 | disposition home or self-care (01) ==
PROVIDERS: PCP Family Medicine; Visit Provider Internal Medicine Hematology & Oncology
DX: Z51.12 Encounter for antineoplastic immunotherapy (principal); C67.3 Malignant neoplasm of anterior wall of bladder; E87.6 Hypokalemia; Z79.899 Other long term (current) drug therapy
CPT/HCPCS: 83735; 96413; 99214; J7050; J9271

== ENCOUNTER 2020-06-03 08:50 | Outpatient (CLI) | payer MEDICARE, OTHER, SELFPAY ==
[2020-06-03 10:36] LABS: Alanine Aminotransferase 32 U/L (0-41); Albumin Level 3.8 g/dL (3.5-5.2); Alkaline Phosphatase 70 IU/L (40-130); Anion Gap 14.5 (5-19); Aspartate Amino Transferase 56 U/L (0-40); Basophils % 0.9 %; Blood Urea Nitrogen 18 mg/dL (8-23); Calcium 9.1 mg/dL (8.5-10.5); Carbon Dioxide 27 mmol/L (22-29); Chloride 95 mmol/L (98-107); Eosinophils # 0.1 10^3/uL (0.0-0.8); Eosinophils % 2.8 %; Globulin 3.9 g/dL (1.3-4.6); Glucose 123 mg/dL (65-115); Hematocrit 43.3 % (42.0-52.0); Lymphocytes # 0.9 10^3/uL (0.8-4.8); Lymphocytes % 19.4 %; Mean Corpuscular HGB Conc 34.6 g/dL (30.0-36.0); Mean Corpuscular Hemoglobin 28.3 pg (28.0-34.0); Mean Corpuscular Volume 81.7 fL (80-94); Mean Platelet Volume 12.5 fL (7.4-10.4); Monocytes # 0.5 10^3/uL (0.2-0.9); Monocytes % 10.3 %; Neutrophils # 3.03 10^3/uL (1.8-7.7); Neutrophils % 65.1 %; Nucleated Red Blood Cells % 0 %; Osmolality Calculated 279 mOsm/kg (285-295); Platelet Count 94 10^3/cmm (130-400); Potassium 3.5 mmol/L (3.5-5.1); Red Cell Distribution Width 12.9 % (12.1-15.1); Sodium 133 mmol/L (136-145); Thyroid Stimulating Hormone 1.94 uIU/mL (0.27-4.20); Total Bilirubin 0.4 mg/dL (0.15-1.2); Total Protein 7.7 g/dL (6.6-8.7); White Blood Count 4.7 10^3/uL (4.0-10.0)
[2020-06-03 10:37] LABS: Slide Review Slide Review Perform
== END 2020-06-03 08:51 | disposition home or self-care (01) ==
LOC: ONCMED 17:35
PROVIDERS: PCP Family Medicine; Visit Provider Internal Medicine Hematology & Oncology
DX: C67.0 Malignant neoplasm of trigone of bladder (principal); E03.9 Hypothyroidism, unspecified
CPT/HCPCS: 80053; 84443; 85025

== ENCOUNTER 2020-06-18 05:31 | Outpatient (RCR) | payer MEDICARE, OTHER, SELFPAY ==
--- NOTE | 2020-06-04 14:06 | ONC FU_ITS ---
Dr. Bermudez follow up note Patient: Farhad Begum Unit #: [id number]: 1945 Dicatated By: Bambi Bermudez M.D.Date of Visit:Jun 04, 2020 Onc Med Follow-up/Prog Note History of Present Illness: Mr. Begum, is a 74-year-old gentleman with history of superficial bladder cancer who has been treated with intravesical BCG treatment in the past and recently underwent TURBT on 05/14/2019 and anterior bladder wall lesion was completely removed and final pathology report came back papillary urothelial carcinoma, high-grade. Carcinoma invades into lamina propria, no muscularis propria present for evaluation eg pT1 Left lateral bladder wall lesion was also biopsied and it showed reactive atypical urothelium in the background of abundant admitted this polypoid granulation tissue no malignancy identified no dysplasia seen. Biopsy from bladder, left trigone shows carcinoma in situ no invasive malignancy seen. 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 Patient denies any specific complaints, denies any hematuria, denies any abdominal pain, denies any new bony pains, denies any weight loss, denies any fever chills or dysuria. 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 He presented for follow-up on September 02 with a rash on his forearms and hands at that time, opted to hold his Keytruda and have him return in 2 weeks. with that rash was better but has not gone away. was not particularly itchy it was just there. Patient was referred to dermatology Dr. Diaz, whom he saw on October 29, 2019and his impression was that the rash was not appear to be drug related and immunotherapy can be started again. Patient was given TAC cream. Mr Begum's last immunotherapy was August 14, 2019. He had bladder biopsy per Dr Gonzalez on 01/24/2020. 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 No invasive carcinoma identified .Case was discussed with Dr. Gonzalez, urologist said follow-up cystoscopy showed huge improvement with some area of patchy erythema but they are much smaller and less suspicious. There is one area that is more typical for residual CIS but is very small on the right lateral wall. And it was decided to continue with immunotherapy and follow-up with cystoscopy. Restarted on 3 weekly Keytruda on April 23, 2020 Came for follow-up, denies any specific complaints, no fever chills, no nausea or vomiting, no diarrhea or constipation, no nosebleed or gum bleed, no petechia or ecchymosis, no skin rash, no itching, no jaundice, no shortness of breath, no hematuria, tolerating Keytruda well otherwise Medications: Cefuroxime Axetil 1 Tablet (of 500 mg) Oral b.i.d., DHS Zinc Shampoo Topical PRN, Potassium Chloride Mile ER 3 Tablet (of 10 meq) Tablet, controlled release Oral b.i.d., Procardia XL 1 Tablet (of 60 mg) Tablet SR 24 HR Oral b.i.d., Sulfacetamide Sodium Cream Topical PRN, Tamsulosin HCl 2 Capsule (of 0.4 mg) Oral at bedtime, Triamterene-HCTZ 1 Capsule (of 37.5-25 mg) Oral b.i.d., ZyrTEC Allergy 1 Capsule (of 10 mg) Oral daily PRN Allergies: No Known Allergies. Review of Systems: Review of Systems is not available for this patient. Vital Signs: Performed on Jun 04, 2020 10:17 Height - 72.00 in Weight - 212.4 lbs (LOW) BSA - 2.19 sq.m BMI - 28.81 Temperature - 97.9 F (LOW) Pulse - 102 /min (HIGH) Respiration - 18 /min BP - 140/75 mm(hg) O2 Sat - 95 % (LOW) Pain - 5 Performance Status: 0 - Fully active, able to carry on all predisease activities without restrictions. (ECOG) Physical Examination: ENMT - No mouth sores, no thrush, no jaundice, Respiratory - Lungs are clear to auscultation, Cardiovascular - Regular rate and rhythm of heart, Abdomen - Soft, bowel sounds present, Extremities - No visible edema. Lab/Imaging: Test performed on May 13, 2020 09:10 Sodium 135 mmol/L TSH 1.20 uIU/mL Potassium 3.3 mmol/L Chloride 94 mmol/L CO2 30 mmol/L Anion Gap 14.3 BUN 16 mg/dL Creatinine 0.8 mg/dL Cr Clearance (Est) 108.1600 mL/min Glucose 118 mg/dL Osmolality - Calculated 282 mOsm/kg Calcium 9.6 mg/dL Protein, Total 7.6 g/dL Albumin 4.0 g/dL Globulin 3.6 g/dL Bilirubin, Total 0.4 mg/dL ALT (SGPT) 18 U/L AST (SGOT) 24 U/L Alkaline Phosphatase 76 IU/L WBC 6.6 10 3/uL RBC 5.46 10 6/uL HGB 15.4 g/dL HCT 46.3 % MCV 84.8 fL MCH 28.2 pg MCHC 33.3 g/dL RDW 12.9 % Platelet Count 314 10 3/cmm MPV 11.6 fL Neutrophils 4.54 10 3/uL Lymphocytes 1.1 10 3/uL Monocytes 0.8 10 3/uL Eosinophils 0.2 10 3/uL Basophils 0.1 10 3/uL Neutrophil % 68.3 % Lymphocyte % 15.8 % Monocyte % 11.6 % Eosinophil % 2.4 % Basophils % 1.1 % NRBC % 0 % Impression: Papillary urothelial carcinoma, high-grade, involving anterior urinary bladder wall, per TURBT done on 05/14/2019, final pathology report showed carcinoma invades into lamina propria, no muscularis propria present for evaluation pT1 Status post intravesical therapy with BCG now 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 Started on 3 weekly Keytruda on 07/24/2019. His Keytruda is currently on hold due to maculopapular rash on forearms and hands. His last dose was 08/14/2019. in November 2019, discussed with patient regarding his question concern, his skin rash involving bilateral upper extremities almost resolved now with mild erythema,, the last dose of Keytruda was given in 08/12 he was told rash could not be due to immunotherapy.Patient underwent follow-up cystoscopy which showed huge improvement with immunotherapy Restarted on Keytruda on April 23, 2020 Plan: Discussed with patient regarding his labs white blood count 4.7 hemoglobin 15 hematocrit 43.3 platelets 94,000 compared to 314,000 on May 13, 2020 CMP within normal limits TSH 1.94 Clinically, patient is doing well with no signs symptoms, tolerating immunotherapy with Keytruda well, his follow-up labs shows significant drop in his platelet count now 94,000 compared to 314,000, etiology unclear but could be due to 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 Signed By: Bambi Bermudez M.D. <<Signature on File>>
[2020-06-10 13:08] LABS: Basophils # 0.1 10^3/uL (0.0-0.1); Basophils % 1.2 %; Eosinophils # 0.1 10^3/uL (0.0-0.8); Eosinophils % 1.5 %; Hemoglobin 13.4 g/dL (11.7-16.6); Lymphocytes # 1.8 10^3/uL (0.8-4.8); Lymphocytes % 30.5 %; Mean Corpuscular HGB Conc 33.5 g/dL (30.0-36.0); Mean Corpuscular Hemoglobin 27.7 pg (28.0-34.0); Mean Corpuscular Volume 82.8 fL (80-94); Mean Platelet Volume 10.9 fL (7.4-10.4); Monocytes # 0.6 10^3/uL (0.2-0.9); Monocytes % 9.6 %; Neutrophils # 3.28 10^3/uL (1.8-7.7); Neutrophils % 56.2 %; Nucleated Red Blood Cells % 0 %; Platelet Count 268 10^3/cmm (130-400); Red Blood Count 4.83 10^6/uL (4.1-5.3); Red Cell Distribution Width 13.4 % (12.1-15.1); White Blood Count 5.8 10^3/uL (4.0-10.0)
[2020-06-10 13:36] LABS: Alanine Aminotransferase 50 U/L (0-41); Albumin Level 3.3 g/dL (3.5-5.2); Alkaline Phosphatase 57 IU/L (40-130); Anion Gap 10.7 (5-19); Aspartate Amino Transferase 50 U/L (0-40); Blood Urea Nitrogen 10 mg/dL (8-23); Calcium 8.7 mg/dL (8.5-10.5); Carbon Dioxide 28 mmol/L (22-29); Chloride 96 mmol/L (98-107); Globulin 3.7 g/dL (1.3-4.6); Glucose 98 mg/dL (65-115); Osmolality Calculated 271 mOsm/kg (285-295); Potassium 3.7 mmol/L (3.5-5.1); Sodium 131 mmol/L (136-145); Thyroid Stimulating Hormone 1.69 uIU/mL (0.27-4.20); Total Bilirubin 0.5 mg/dL (0.15-1.2)
[2020-06-17 11:05] LABS: Basophils # 0.1 10^3/uL (0.0-0.1); Basophils % 1.5 %; Eosinophils # 0.1 10^3/uL (0.0-0.8); Eosinophils % 0.7 %; Hematocrit 42.8 % (42.0-52.0); Hemoglobin 14.2 g/dL (11.7-16.6); Lymphocytes # 1.5 10^3/uL (0.8-4.8); Lymphocytes % 21.9 %; Mean Corpuscular HGB Conc 33.2 g/dL (30.0-36.0); Mean Corpuscular Hemoglobin 28.1 pg (28.0-34.0); Mean Corpuscular Volume 84.6 fL (80-94); Mean Platelet Volume 10.3 fL (7.4-10.4); Monocytes # 0.6 10^3/uL (0.2-0.9); Monocytes % 9.4 %; Neutrophils # 4.42 10^3/uL (1.8-7.7); Neutrophils % 66.1 %; Nucleated Red Blood Cells % 0 %; Platelet Count 307 10^3/cmm (130-400); Red Blood Count 5.06 10^6/uL (4.1-5.3); Red Cell Distribution Width 13.8 % (12.1-15.1); White Blood Count 6.7 10^3/uL (4.0-10.0)
[2020-06-17 11:38] LABS: Alanine Aminotransferase 28 U/L (0-41); Albumin Level 3.9 g/dL (3.5-5.2); Alkaline Phosphatase 63 IU/L (40-130); Anion Gap 13.4 (5-19); Aspartate Amino Transferase 24 U/L (0-40); Blood Urea Nitrogen 17 mg/dL (8-23); Calcium 9.6 mg/dL (8.5-10.5); Carbon Dioxide 28 mmol/L (22-29); Chloride 100 mmol/L (98-107); Globulin 3.9 g/dL (1.3-4.6); Glucose 101 mg/dL (65-115); Osmolality Calculated 288 mOsm/kg (285-295); Potassium 3.4 mmol/L (3.5-5.1); Sodium 138 mmol/L (136-145); Thyroid Stimulating Hormone 1.29 uIU/mL (0.27-4.20); Total Bilirubin 0.5 mg/dL (0.15-1.2); Total Protein 7.8 g/dL (6.6-8.7)
--- NOTE | 2020-06-23 21:00 | ONC FU_ITS ---
[facility] Patient Note Patient: Farhad Begum Unit #: [id number]: 1945 Dictated By: Kassi PerdomoDate of Visit: Jun 18, 2020 Onc MED Follow-Up/Prog Note Chief Complaint: Bladder cancer History of Present Illness: Mr. 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 Carcinoma invades into lamina propria, no muscularis propria present for evaluation eg pT1 Left lateral bladder wall lesion was also biopsied and it showed reactive atypical urothelium in the background of abundant admitted this polypoid granulation tissue no malignancy identified no dysplasia seen. Biopsy from bladder, left trigone shows carcinoma in situ no invasive malignancy seen. 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 Patient denies any specific complaints, denies any hematuria, denies any abdominal pain, denies any new bony pains, denies any weight loss, denies any fever chills or dysuria. 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 He presented for follow-up on September 02 with a rash on his forearms and hands at that time, opted to hold his Keytruda and have him return in 2 weeks. with that rash was better but has not gone away. was not particularly itchy it was just there. Patient was referred to dermatology Dr. Diaz, whom he saw on October 29, 2019and his impression was that the rash was not appear to be drug related and immunotherapy can be started again. Patient was given TAC cream. Mr Begum had immunotherapy on August 14, 2019. He had bladder biopsy per Dr Gonzalez on 01/24/2020. 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 No invasive carcinoma identified .Case was discussed with Dr. Gonzalez, urologist said follow-up cystoscopy showed huge improvement with some area of patchy erythema but they are much smaller and less suspicious. There is one area that is more typical for residual CIS but is very small on the right lateral wall. And it was decided to continue with immunotherapy and follow-up with cystoscopy. He restarted on 3 weekly Keytruda on April 23, 2020. He has tolerated it well. Mr. Begum is here today for follow-up. He is due for Keytruda/pembrolizumab today. This will be his fifth cycle in total. His last pembrolizumab treatment was on May 14, 2020. He was seen by Dr. Bermudez on March 04, 2021 and his pembrolizumab was held due to a significant drop in his platelet count from 314,000 on May 13 2020-94,000 on June 03, 2020. 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 His platelet count has resolved and is 307 today. He has no concerns today. He states overall he feels good. He denies any fever or chills. He denies any mouth sores, sore throat or difficulty swallowing. He denies any new shortness of breath orthopnea. He has had no chest pain or palpitations. He denies any abdominal pain or diarrhea. He denies any constipation. He denies any lower extremity edema. He states that he has not had any headache, vision changes or confusion. He states his appetite is good and his energy is good. He remains active around his home. His ECOG is 1. Past Medical History: Bph Hypertension Past Surgical History: Biopsy of bladder muscle TURBT Allergies: No Known Allergies. Medications: Cefuroxime Axetil 1 Tablet (of 500 mg) Oral b.i.d. DHS Zinc Shampoo Topical PRN Potassium Chloride Mile ER 3 Tablet (of 10 meq) Tablet, controlled release Oral b.i.d. Procardia XL 1 Tablet (of 60 mg) Tablet SR 24 HR Oral b.i.d. Sulfacetamide Sodium Cream Topical PRN Tamsulosin HCl 2 Capsule (of 0.4 mg) Oral at bedtime Triamterene-HCTZ 1 Capsule (of 37.5-25 mg) Oral b.i.d. ZyrTEC Allergy 1 Capsule (of 10 mg) Oral daily PRN Family History: Mr. Begum's mother at age 77: kidney disease, and stroke. Mr. Begum's father at age 82: heart disease. Mr. Begum has 2 sisters: 2 . Social History: Mr. Begum is . Mr. Begum no longer smokes. He has indicated exposure to the following products: chewing tobacco. pt states he drinks one shot once a day of bourbon. He also chews tobacco two cans a week. Review Of Symptoms: Constitutional Denies fevers, chills, night sweats, excessive fatigue or weight loss. Allergic/Immunologic No reactions. Eyes Denies significant visual changes. No diplopia. No amaurosis. ENMT Denies changes in hearing, sore throat, mouth sores, difficulty or changes in swallowing ability, and/or sinus drainage. Endocrine No diabetes, thyroid disease or hormone replacement. Denies hot flashes or night sweats. Hematologic/Lymphatic Denies easy bruising or bleeding. The patient denies any tender or palpable lymph nodes. Respiratory Denies dyspnea on exertion, chest pain, cough or hemoptysis. Denies orthopnea. Cardiovascular Denies anginal chest pain, palpitations or orthopnea. Gastrointestinal Denies nausea, vomiting, diarrhea, GI bleeding, or constipation. Denies change in bowel habits and/or stool color, no heartburn or early satiety. Genitourinary (M) Denies hematuria, dysuria, increased frequency, urgency, hesitancy or incontinence. Musculoskeletal Denies joint pain, swelling or redness. No decreased range of motion. Integumentary see physical exam section Neurologic Denies headache, blurred vision, and no areas of focal weakness or numbness. Normal gait. No sensory problems. Psychiatric Denies insomnia, depression, [place] or mood swings. Vital Signs: Performed on Jun 18, 2020 10:16 Height - 72.00 in Weight - 208.6 lbs (LOW) BSA - 2.17 sq.m BMI - 28.29 Temperature - 98.4 F Pulse - 85 /min Respiration - 16 /min BP - 147/71 mm(hg) (HIGH) O2 Sat - 95 % (LOW) Pain - 0,1 - No physically strenuous activity, but ambulatory and able to carry out light or sedentary work (e.g. office work, light house work). (ECOG) Physical Examination: Constitutional Alert, oriented, no acute distress. Skin pink, warm and dry. Head Normocephalic; atraumatic. Eyes Conjunctivae and sclerae are clear and without icterus. Pupils are reactive and equal. Neck Supple without masses or thyromegaly. No jugular venous distension. Hematologic/Lymphatic No petechiae or purpura. No tender or palpable lymph nodes in the cervical or supraclavicular areas. Respiratory Lungs are clear to auscultation without rhonchi or wheezing. Cardiovascular Regular rate and rhythm of heart without murmurs,clicks, gallops or rubs. Abdomen Non-tender, non-distended, no masses or ascites. No guarding or rebound tenderness. No pulsatile masses. Back/Spine Non-tender to palpation. Extremities No visible deformities, no cyanosis, clubbing or edema. Musculoskeletal No tenderness or swelling, normal range of motion without obvious weakness. Integumentary No rashes or lesions. Neurologic No sensory or motor deficits, normal cerebellar function, normal gait. Psychiatric Alert and oriented times three. Coherent speech. Verbalizes understanding of our discussions today. Laboratory:Test performed on Jun 17, 2020 09:38 Sodium 138 mmol/L TSH 1.29 uIU/mL Potassium 3.4 mmol/L Chloride 100 mmol/L CO2 28 mmol/L Anion Gap 13.4 BUN 17 mg/dL Creatinine 0.7 mg/dL Cr Clearance (Est) 120.15 mL/min Glucose 101 mg/dL Osmolality - Calculated 288 mOsm/kg Calcium 9.6 mg/dL Protein, Total 7.8 g/dL Albumin 3.9 g/dL Globulin 3.9 g/dL Bilirubin, Total 0.5 mg/dL ALT (SGPT) 28 U/L AST (SGOT) 24 U/L Alkaline Phosphatase 63 IU/L WBC 6.7 10 3/uL RBC 5.06 10 6/uL HGB 14.2 g/dL HCT 42.8 % MCV 84.6 fL MCH 28.1 pg MCHC 33.2 g/dL RDW 13.8 % Platelet Count 307 10 3/cmm MPV 10.3 fL Neutrophils 4.42 10 3/uL Lymphocytes 1.5 10 3/uL Monocytes 0.6 10 3/uL Eosinophils 0.1 10 3/uL Basophils 0.1 10 3/uL Neutrophil % 66.1 % Lymphocyte % 21.9 % Monocyte % 9.4 % Eosinophil % 0.7 % Basophils % 1.5 % NRBC % 0 % Impression: Papillary urothelial carcinoma, high-grade, involving anterior urinary bladder wall, per TURBT done on 05/14/2019, final pathology report showed carcinoma invades into lamina propria, no muscularis propria present for evaluation pT1 Status post intravesical therapy with BCG now 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 Started on 3 weekly Keytruda on 07/24/2019. His Keytruda is currently on hold due to maculopapular rash on forearms and hands. His last dose was 08/14/2019. In November 2019, Dr Bermudez discussed with Mr Begum his question/concern\ of his skin rash involving bilateral upper extremities almost resolved now with mild erythema,, the last dose of Keytruda was given in 08/12 he was told rash could not be due to immunotherapy. Patient underwent follow-up cystoscopy which showed huge improvement with immunotherapy. Restarted on Keytruda on April 23, 2020. No rash recurrence to date. Plan: PROBLEMS ADDRESSED TODAY 1. Bladder cancer A. Proceed with immunotherapy with pembrolizumab at 200 mg today. His last treatment was on May 14, 2020 and he had been held due to thrombocytopenia. That now has resolved. B. Labs from June 17, 2020 were reviewed in detail and discussed with Kel and a copy was given to him. WBC 6.7, hemoglobin 14.2, platelets 307,000, ANC is 4420. Potassium 3.4 creatinine 0.7 random glucose 101 LFTs are normal. His TSH is normal at 1.29. C. We will plan for him to return in 3 weeks with CBC CMP and TSH. Will monitor his thrombocytopenia closely. D. Dr. 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 E. Mr. Begum has been encouraged to contact us in interim should questions or problems arise. Signed By: Kassi Perdomo-, [facility] Bambi Bermudez MD <<Signature on File>>
== END 2020-06-22 23:59 | disposition home or self-care (01) ==
LOC: ONCMED 05:31
PROVIDERS: Internal Medicine Hematology & Oncology; PCP Family Medicine; Visit Provider Nurse Practitioner
DX: Z51.12 Encounter for antineoplastic immunotherapy (principal); C67.0 Malignant neoplasm of trigone of bladder; E03.9 Hypothyroidism, unspecified; Z79.52 Long term (current) use of systemic steroids
CPT/HCPCS: 80053; 84443; 85025; 96413; 99214; J7050; J9271

== ENCOUNTER 2020-07-09 06:00 | Outpatient (RCR) | payer MEDICARE, OTHER, SELFPAY ==
[2020-07-08 11:37] LABS: Basophils # 0.1 10^3/uL (0.0-0.1); Basophils % 0.8 %; Eosinophils # 0.1 10^3/uL (0.0-0.8); Eosinophils % 1.6 %; Hematocrit 43.2 % (42.0-52.0); Lymphocytes # 1.1 10^3/uL (0.8-4.8); Lymphocytes % 12.5 %; Mean Corpuscular HGB Conc 32.4 g/dL (30.0-36.0); Mean Corpuscular Hemoglobin 27.3 pg (28.0-34.0); Mean Corpuscular Volume 84.4 fL (80-94); Mean Platelet Volume 10.9 fL (7.4-10.4); Monocytes # 0.6 10^3/uL (0.2-0.9); Monocytes % 7.3 %; Neutrophils # 6.73 10^3/uL (1.8-7.7); Neutrophils % 76.9 %; Nucleated Red Blood Cells % 0 %; Platelet Count 346 10^3/cmm (130-400); Red Blood Count 5.12 10^6/uL (4.1-5.3); Red Cell Distribution Width 13.6 % (12.1-15.1); White Blood Count 8.8 10^3/uL (4.0-10.0)
[2020-07-08 12:22] LABS: Alanine Aminotransferase 36 U/L (0-41); Albumin Level 3.6 g/dL (3.5-5.2); Alkaline Phosphatase 122 IU/L (40-130); Anion Gap 13.6 (5-19); Aspartate Amino Transferase 25 U/L (0-40); Blood Urea Nitrogen 14 mg/dL (8-23); Calcium 9.5 mg/dL (8.5-10.5); Carbon Dioxide 29 mmol/L (22-29); Chloride 99 mmol/L (98-107); Glucose 120 mg/dL (65-115); Osmolality Calculated 288 mOsm/kg (285-295); Potassium 3.6 mmol/L (3.5-5.1); Sodium 138 mmol/L (136-145); Thyroid Stimulating Hormone 1.08 uIU/mL (0.27-4.20); Total Bilirubin 0.3 mg/dL (0.15-1.2); Total Protein 7.6 g/dL (6.6-8.7)
--- NOTE | 2020-07-19 16:41 | ONC FU_ITS ---
[facility] Patient Note Patient: Farhad Begum Unit #: [id number]: 1945 Dictated By: Kassi PerdomoDate of Visit: Jul 09, 2020 Onc MED Follow-Up/Prog Note Chief Complaint: urinary bladder cancer History of Present Illness: Mr. 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 Carcinoma invades into lamina propria, no muscularis propria present for evaluation eg pT1 Left lateral bladder wall lesion was also biopsied and it showed reactive atypical urothelium in the background of abundant admitted this polypoid granulation tissue no malignancy identified no dysplasia seen. Biopsy from bladder, left trigone shows carcinoma in situ no invasive malignancy seen. 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 Patient denies any specific complaints, denies any hematuria, denies any abdominal pain, denies any new bony pains, denies any weight loss, denies any fever chills or dysuria. 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 He presented for follow-up on September 02 with a rash on his forearms and hands at that time. It was opted to hold his Keytruda and have him return in 2 weeks. After 2 weeks, his rash was better but had not resolved-it was not particularly itchy it was just there. Mr Begum was referred to dermatology with Dr. Diaz, whom he saw on October 29, 2019. Per Dr Diaz's impression, the rash did not appear to be drug related and immunotherapy could be resumed. Patient was given TAC cream. His immunotherapy was on hold from August 14, 2019 until April 23, 2020 Mr Begum had immunotherapy on August 14, 2019 and then his treatment was placed on hold due to the rash. He had repeat bladder biopsy per Dr Gonzalez on 01/24/2020. There were four biopsies reported by pathology with no in situ carcinoma or invasive cancer identified in 3/4 of the specimes. 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 No invasive carcinoma identified . Case was discussed with Dr. Gonzalez per Dr Bermudez and Dr Gonzalez reported the follow-up cystoscopy showed huge improvement with some area of patchy erythema but they are much smaller and less suspicious. There was one area that was more typical for residual CIS but is very small on the right lateral wall. With that dicussion it was decided to continue with immunotherapy and follow-up with cystoscopy. He resumed ever 3 week Keytruda on April 23, 2020. He has tolerated it well. Mr. Begum is here today for follow-up. He is due for Keytruda/pembrolizumab today. This will be his sixth cycle in total. His last pembrolizumab treatment was on June 18, 2020. His pembrolizumab was held on cycle 5 due to a significant drop in his platelet count from 314,000 on May 13 2020 to 94,000 on June 03, 2020. 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 His platelet count has resolved and is 346 today. He has no concerns today. He states overall he feels good. He denies any fever or chills. He denies any mouth sores, sore throat or difficulty swallowing. He denies any new shortness of breath orthopnea. He has had no chest pain or palpitations. He denies any abdominal pain or diarrhea. He denies any constipation. He denies any lower extremity edema. He states that he has not had any headache, vision changes or confusion. He states his appetite is good and his energy is good. He remains active around his home. His ECOG is 2. Past Medical History: Bph Hypertension Past Surgical History: Biopsy of bladder muscle TURBT Allergies: No Known Allergies. Medications: Cefuroxime Axetil 1 Tablet (of 500 mg) Oral b.i.d. DHS Zinc Shampoo Topical PRN Potassium Chloride Mile ER 3 Tablet (of 10 meq) Tablet, controlled release Oral b.i.d. Procardia XL 1 Tablet (of 60 mg) Tablet SR 24 HR Oral b.i.d. Sulfacetamide Sodium Cream Topical PRN Tamsulosin HCl 2 Capsule (of 0.4 mg) Oral at bedtime Triamterene-HCTZ 1 Capsule (of 37.5-25 mg) Oral b.i.d. ZyrTEC Allergy 1 Capsule (of 10 mg) Oral daily PRN Family History: Mr. Begum's mother at age 77: kidney disease, and stroke. Mr. Begum's father at age 82: heart disease. Mr. Begum has 2 sisters: 2 . Social History: Mr. Begum is . Mr. Begum no longer smokes. He has indicated exposure to the following products: chewing tobacco. pt states he drinks one shot once a day of bourbon. He also chews tobacco two cans a week. Review Of Symptoms: Constitutional Denies fevers, chills, night sweats, excessive fatigue or weight loss. Allergic/Immunologic No reactions. Eyes Denies significant visual changes. No diplopia. No amaurosis. ENMT Denies changes in hearing, sore throat, mouth sores, difficulty or changes in swallowing ability, and/or sinus drainage. Hematologic/Lymphatic Denies easy bruising or bleeding. The patient denies any tender or palpable lymph nodes. Respiratory Denies dyspnea on exertion, chest pain, cough or hemoptysis. Denies orthopnea. Cardiovascular Denies anginal chest pain, palpitations or orthopnea. Gastrointestinal Denies nausea, vomiting, diarrhea, GI bleeding, or constipation. Denies change in bowel habits and/or stool color, no heartburn or early satiety. Genitourinary (M) Denies hematuria, dysuria, increased frequency, urgency, hesitancy or incontinence. Musculoskeletal Denies joint pain, swelling or redness. No decreased range of motion. Integumentary see physical exam section Neurologic Denies headache, blurred vision, and no areas of focal weakness or numbness. Normal gait. No sensory problems. Psychiatric Denies insomnia, depression, [place] or mood swings. Vital Signs: Performed on Jul 09, 2020 13:19 Height - 72.00 in Weight - 205.8 lbs (LOW) BSA - 2.16 sq.m BMI - 27.91 Temperature - 97.9 F (LOW) Pulse - 80 /min Respiration - 17 /min BP - 139/68 mm(hg) O2 Sat - 94 % (LOW) Pain - 0,2 - Ambulatory/capable of all self-care, unable to perform any work activities. Up and about more than 50% of waking hours. (ECOG) Physical Examination: Constitutional Alert, oriented, no acute distress. Skin pink, warm and dry. Head Normocephalic; atraumatic. Eyes Conjunctivae and sclerae are clear and without icterus. Pupils are reactive and equal. Neck Supple without masses or thyromegaly. No jugular venous distension. Hematologic/Lymphatic No petechiae or purpura. No tender or palpable lymph nodes in the cervical or supraclavicular areas. Respiratory Lungs are clear to auscultation without rhonchi or wheezing. Cardiovascular Regular rate and rhythm of heart without murmurs,clicks, gallops or rubs. Chest Chest is symmetric without chest wall deformities. Abdomen Non-tender, non-distended, no masses or ascites. No guarding or rebound tenderness. No pulsatile masses. Back/Spine Non-tender to palpation. Extremities No visible deformities, no cyanosis, clubbing or edema. Musculoskeletal No tenderness or swelling, normal range of motion without obvious weakness. Integumentary No rashes or lesions. Neurologic No sensory or motor deficits, normal cerebellar function, normal gait. Psychiatric Alert and oriented times three. Coherent speech. Verbalizes understanding of our discussions today. Laboratory:Test performed on Jun 17, 2020 09:38 Sodium 138 mmol/L TSH 1.29 uIU/mL Potassium 3.4 mmol/L Chloride 100 mmol/L CO2 28 mmol/L Anion Gap 13.4 BUN 17 mg/dL Creatinine 0.7 mg/dL Cr Clearance (Est) 120.15 mL/min Glucose 101 mg/dL Osmolality - Calculated 288 mOsm/kg Calcium 9.6 mg/dL Protein, Total 7.8 g/dL Albumin 3.9 g/dL Globulin 3.9 g/dL Bilirubin, Total 0.5 mg/dL ALT (SGPT) 28 U/L AST (SGOT) 24 U/L Alkaline Phosphatase 63 IU/L WBC 6.7 10 3/uL RBC 5.06 10 6/uL HGB 14.2 g/dL HCT 42.8 % MCV 84.6 fL MCH 28.1 pg MCHC 33.2 g/dL RDW 13.8 % Platelet Count 307 10 3/cmm MPV 10.3 fL Neutrophils 4.42 10 3/uL Lymphocytes 1.5 10 3/uL Monocytes 0.6 10 3/uL Eosinophils 0.1 10 3/uL Basophils 0.1 10 3/uL Neutrophil % 66.1 % Lymphocyte % 21.9 % Monocyte % 9.4 % Eosinophil % 0.7 % Basophils % 1.5 % NRBC % 0 % Impression: Papillary urothelial carcinoma, high-grade, involving anterior urinary bladder wall, per TURBT done on 05/14/2019, final pathology report showed carcinoma invades into lamina propria, no muscularis propria present for evaluation pT1 Status post intravesical therapy with BCG now 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 Started on 3 weekly Keytruda on 07/24/2019. His Keytruda is currently on hold due to maculopapular rash on forearms and hands. His last dose was 08/14/2019. in November 2019, discussed with patient regarding his question concern, his skin rash involving bilateral upper extremities almost resolved now with mild erythema,, the last dose of Keytruda was given in 08/12 he was told rash could not be due to immunotherapy.Patient underwent follow-up cystoscopy which showed huge improvement with immunotherapy Restarted on Keytruda on April 23, 2020 Plan: PROBLEMS ADDRESSED TODAY 1. Bladder cancer A. Proceed with cycle 6 immunotherapy with pembrolizumab at 200 mg today. His last treatment was on June 18, 2020 and he had been held and extra week after cycle 4 due to thrombocytopenia. That now has resolved. B. Labs from July 08, 2020 were reviewed in detail and discussed with Mr. Begum and a copy was given to him. WBC 8.8, hemoglobin 14, platelets 3 and 46,000 ANC is 6730. Potassium 3.6 random glucose 120 creatinine 0.7 LFTs are normal TSH is 1.08. C. We will plan for him to return in 3 weeks with CBC CMP and TSH. Will monitor his thrombocytopenia closely. I have requested in-home lab services as he does have a difficulty time ambulating and it is very try and taxing on him to come to the clinic for labs. Marlene. Mr. Begum has been encouraged to contact us in interim should questions or problems arise. Signed By: Kassi Perdomo-, [facility] Bambi Bermudez MD <<Signature on File>>
== END 2020-07-23 23:59 | disposition home or self-care (01) ==
LOC: ONCMED 06:00
PROVIDERS: PCP Family Medicine; Visit Provider Nurse Practitioner
DX: Z51.12 Encounter for antineoplastic immunotherapy (principal); C67.0 Malignant neoplasm of trigone of bladder; D69.6 Thrombocytopenia, unspecified; N40.0 Benign prostatic hyperplasia without lower urinary tract symptoms; I10 Essential (primary) hypertension; Z79.899 Other long term (current) drug therapy
CPT/HCPCS: 80053; 84443; 85025; 96413; 99214; J7050; J9271

== ENCOUNTER 2020-08-20 06:51 | Outpatient (RCR) | payer MEDICARE, OTHER, SELFPAY ==
[2020-07-29 11:42] LABS: Basophils # 0.1 10^3/uL (0.0-0.1); Basophils % 1.1 %; Eosinophils # 0.2 10^3/uL (0.0-0.8); Eosinophils % 3.7 %; Hematocrit 43.9 % (42.0-52.0); Hemoglobin 14.5 g/dL (11.7-16.6); Lymphocytes # 1.2 10^3/uL (0.8-4.8); Lymphocytes % 21.4 %; Mean Corpuscular Hemoglobin 27.8 pg (28.0-34.0); Mean Corpuscular Volume 84.3 fL (80-94); Mean Platelet Volume 11.4 fL (7.4-10.4); Monocytes # 0.5 10^3/uL (0.2-0.9); Monocytes % 7.9 %; Neutrophils # 3.74 10^3/uL (1.8-7.7); Neutrophils % 65.5 %; Nucleated Red Blood Cells % 0 %; Platelet Count 208 10^3/cmm (130-400); Red Blood Count 5.21 10^6/uL (4.1-5.3); Red Cell Distribution Width 14.1 % (12.1-15.1); White Blood Count 5.7 10^3/uL (4.0-10.0)
[2020-07-29 12:23] LABS: Alanine Aminotransferase 16 U/L (0-41); Albumin Level 4.1 g/dL (3.5-5.2); Alkaline Phosphatase 77 IU/L (40-130); Anion Gap 15.5 (5-19); Aspartate Amino Transferase 20 U/L (0-40); Blood Urea Nitrogen 15 mg/dL (8-23); Calcium 9.7 mg/dL (8.5-10.5); Carbon Dioxide 29 mmol/L (22-29); Chloride 99 mmol/L (98-107); Globulin 2.8 g/dL (1.3-4.6); Glucose 116 mg/dL (65-115); Osmolality Calculated 292 mOsm/kg (285-295); Potassium 3.5 mmol/L (3.5-5.1); Sodium 140 mmol/L (136-145); Total Bilirubin 0.6 mg/dL (0.15-1.2); Total Protein 6.9 g/dL (6.6-8.7)
--- NOTE | 2020-07-30 13:51 | ONC FU_ITS ---
[facility] Patient Note Patient: Farhad Begum Unit #: [id number]: 1945 Dictated By: Kassi PerdomoDate of Visit: Jul 30, 2020 Onc MED Follow-Up/Prog Note Chief Complaint: urinary bladder cancer History of Present Illness: Mr. 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 Carcinoma invades into lamina propria, no muscularis propria present for evaluation eg pT1 Left lateral bladder wall lesion was also biopsied and it showed reactive atypical urothelium in the background of abundant admitted this polypoid granulation tissue no malignancy identified no dysplasia seen. Biopsy from bladder, left trigone shows carcinoma in situ no invasive malignancy seen. 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 Patient denies any specific complaints, denies any hematuria, denies any abdominal pain, denies any new bony pains, denies any weight loss, denies any fever chills or dysuria. 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 He presented for follow-up on September 02 with a rash on his forearms and hands at that time. It was opted to hold his Keytruda and have him return in 2 weeks. After 2 weeks, his rash was better but had not resolved-it was not particularly itchy it was just there. Mr Begum was referred to dermatology with Dr. Diaz, whom he saw on October 29, 2019. Per Dr Diaz's impression, the rash did not appear to be drug related and immunotherapy could be resumed. Patient was given TAC cream. His immunotherapy was on hold from August 14, 2019 until April 23, 2020 Mr Begum had immunotherapy on August 14, 2019 and then his treatment was placed on hold due to the rash. He had repeat bladder biopsy per Dr Gonzalez on 01/24/2020. There were four biopsies reported by pathology with no in situ carcinoma or invasive cancer identified in 3/4 of the specimes. 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 No invasive carcinoma identified . Case was discussed with Dr. Gonzalez per Dr Bermudez and Dr Gonzalez reported the follow-up cystoscopy showed huge improvement with some area of patchy erythema but they are much smaller and less suspicious. There was one area that was more typical for residual CIS but is very small on the right lateral wall. With that dicussion it was decided to continue with immunotherapy and follow-up with cystoscopy. He resumed ever 3 week Keytruda on April 23, 2020. He has tolerated it well. Mr. Begum is here today for follow-up. He is due for Keytruda (pembrolizumab) today. This will be his 7th cycle in total. He had pembrolizumab treatment was on June 18, 2020. His pembrolizumab was held on cycle 5 due to a significant drop in his platelet count from 314,000 on May 13 2020 to 94,000 on June 03, 2020. 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 His platelet count recovered and he was able to resume treatment on 06/18/2020. His platelet count on was 346. He received cycle 6 pembrolizumab on July 09, 2020. He has no concerns today. He states overall he feels good. He denies any fever or chills. He denies any mouth sores, sore throat or difficulty swallowing. He denies any new shortness of breath orthopnea. He has had no chest pain or palpitations. He denies any abdominal pain or diarrhea. He denies any constipation. He denies any lower extremity edema. He states that he has not had any headache, vision changes or confusion. He states his appetite is good and his energy is good. He remains active around his home. He denies any hemoptysis. He has had no hematuria or hematochezia. 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 His ECOG is 0. Past Medical History: Bph Hypertension Past Surgical History: Biopsy of bladder muscle TURBT Allergies: No Known Allergies. Medications: Cefuroxime Axetil 1 Tablet (of 500 mg) Oral b.i.d. DHS Zinc Shampoo Topical PRN Potassium Chloride Mile ER 3 Tablet (of 10 meq) Tablet, controlled release Oral b.i.d. Procardia XL 1 Tablet (of 60 mg) Tablet SR 24 HR Oral b.i.d. Sulfacetamide Sodium Cream Topical PRN Tamsulosin HCl 2 Capsule (of 0.4 mg) Oral at bedtime Triamterene-HCTZ 1 Capsule (of 37.5-25 mg) Oral b.i.d. ZyrTEC Allergy 1 Capsule (of 10 mg) Oral daily PRN Family History: Mr. Begum's mother at age 77: kidney disease, and stroke. Mr. Begum's father at age 82: heart disease. Mr. Begum has 2 sisters: 2 . Social History: Mr. Begum is . Mr. Begum no longer smokes. He has indicated exposure to the following products: chewing tobacco. pt states he drinks one shot once a day of bourbon. He also chews tobacco two cans a week. Review Of Symptoms: Vital Signs: Performed on Jul 30, 2020 13:03 Height - 72.00 in Weight - 203.6 lbs (LOW) BSA - 2.15 sq.m BMI - 27.61 Temperature - 98.7 F Pulse - 76 /min Respiration - 18 /min BP - 134/68 mm(hg) O2 Sat - 96 % Pain - 0 Fatigue - 5,0 - Fully active, able to carry on all predisease activities without restrictions. (ECOG) Physical Examination: Constitutional Alert, oriented, no acute distress. Skin pink, warm and dry. Head Normocephalic; atraumatic. Eyes Conjunctivae and sclerae are clear and without icterus. Pupils are reactive and equal. Neck Supple without masses or thyromegaly. No jugular venous distension. Hematologic/Lymphatic No petechiae or purpura. No tender or palpable lymph nodes in the cervical or supraclavicular areas. Respiratory Lungs are clear to auscultation without rhonchi or wheezing. Cardiovascular Regular rate and rhythm of heart without murmurs,clicks, gallops or rubs. Abdomen Non-tender, non-distended, no masses or ascites. No guarding or rebound tenderness. No pulsatile masses. Back/Spine Non-tender to palpation. Extremities No visible deformities, no cyanosis, clubbing or edema. Musculoskeletal No tenderness or swelling, normal range of motion without obvious weakness. Integumentary No rashes or lesions. Neurologic No sensory or motor deficits, normal cerebellar function, normal gait. Psychiatric Alert and oriented times three. Coherent speech. Verbalizes understanding of our discussions today. Laboratory:Test performed on Jun 17, 2020 09:38 Sodium 138 mmol/L TSH 1.29 uIU/mL Potassium 3.4 mmol/L Chloride 100 mmol/L CO2 28 mmol/L Anion Gap 13.4 BUN 17 mg/dL Creatinine 0.7 mg/dL Cr Clearance (Est) 120.15 mL/min Glucose 101 mg/dL Osmolality - Calculated 288 mOsm/kg Calcium 9.6 mg/dL Protein, Total 7.8 g/dL Albumin 3.9 g/dL Globulin 3.9 g/dL Bilirubin, Total 0.5 mg/dL ALT (SGPT) 28 U/L AST (SGOT) 24 U/L Alkaline Phosphatase 63 IU/L WBC 6.7 10 3/uL RBC 5.06 10 6/uL HGB 14.2 g/dL HCT 42.8 % MCV 84.6 fL MCH 28.1 pg MCHC 33.2 g/dL RDW 13.8 % Platelet Count 307 10 3/cmm MPV 10.3 fL Neutrophils 4.42 10 3/uL Lymphocytes 1.5 10 3/uL Monocytes 0.6 10 3/uL Eosinophils 0.1 10 3/uL Basophils 0.1 10 3/uL Neutrophil % 66.1 % Lymphocyte % 21.9 % Monocyte % 9.4 % Eosinophil % 0.7 % Basophils % 1.5 % NRBC % 0 % Test performed on Jun 03, 2020 08:50 CBC Slide Review Slide Review Perform SLIDE REVIEW AGREES WITH AUTOMATED RESULTS ST Test performed on May 13, 2020 09:10 Magnesium 1.6 mg/dL Impression: Papillary urothelial carcinoma, high-grade, involving anterior urinary bladder wall, per TURBT done on 05/14/2019, final pathology report showed carcinoma invades into lamina propria, no muscularis propria present for evaluation pT1 Status post intravesical therapy with BCG now 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 Started on 3 weekly Keytruda on 07/24/2019. His Keytruda is currently on hold due to maculopapular rash on forearms and hands. His last dose was 08/14/2019. in November 2019, discussed with patient regarding his question concern, his skin rash involving bilateral upper extremities almost resolved now with mild erythema,, the last dose of Keytruda was given in 08/12 he was told rash could not be due to immunotherapy.Patient underwent follow-up cystoscopy which showed huge improvement with immunotherapy Restarted on Keytruda on April 23, 2020 Plan: PROBLEMS ADDRESSED TODAY 1. Bladder cancer A. Proceed with cycle 7 immunotherapy with pembrolizumab at 200 mg today. His last treatment was on July 09, 2020 and he had been held an extra week after cycle 4 due to thrombocytopenia. That now has resolved. B. Labs from July 29, 2020 were reviewed in detail and discussed with Mr. Begum and a copy was given to him. WBC 5.7, hemoglobin 14.5, platelets 208,000 ANC is 3740. Potassium 3.5, glucose 116, creatinine 0.8 LFTs are normal. His TSH is normal at 1.30. C. We will plan for him to return in 3 weeks with CBC CMP and TSH. Will monitor his thrombocytopenia closely. Thus far he has had no recurrence of the thrombocytopenia. D. He did have his first Covid vaccine sometime in June 2020. He has not yet had a second 1 as it is not due . E. Mr. Begum has been encouraged to contact us in interim should questions or problems arise. Signed By: Kassi Perdomo-KHALIF, AOCNP Bambi Bermudez MD <<Signature on File>>
[2020-08-19 11:55] LABS: Basophils # 0.1 10^3/uL (0.0-0.1); Basophils % 0.8 %; Eosinophils # 0.1 10^3/uL (0.0-0.8); Eosinophils % 2.4 %; Hematocrit 41.9 % (42.0-52.0); Hemoglobin 14.1 g/dL (11.7-16.6); Lymphocytes # 0.9 10^3/uL (0.8-4.8); Lymphocytes % 14.4 %; Mean Corpuscular HGB Conc 33.7 g/dL (30.0-36.0); Mean Corpuscular Hemoglobin 28.3 pg (28.0-34.0); Mean Corpuscular Volume 84.1 fL (80-94); Mean Platelet Volume 11.5 fL (7.4-10.4); Monocytes # 0.6 10^3/uL (0.2-0.9); Monocytes % 10.7 %; Neutrophils # 4.23 10^3/uL (1.8-7.7); Neutrophils % 71.5 %; Nucleated Red Blood Cells % 0 %; Platelet Count 197 10^3/cmm (130-400); Red Blood Count 4.98 10^6/uL (4.1-5.3); White Blood Count 5.9 10^3/uL (4.0-10.0)
[2020-08-19 12:27] LABS: Alanine Aminotransferase 12 U/L (0-41); Albumin Level 3.8 g/dL (3.5-5.2); Alkaline Phosphatase 74 IU/L (40-130); Anion Gap 13.3 (5-19); Aspartate Amino Transferase 20 U/L (0-40); Blood Urea Nitrogen 17 mg/dL (8-23); Calcium 9.1 mg/dL (8.5-10.5); Carbon Dioxide 29 mmol/L (22-29); Chloride 97 mmol/L (98-107); Globulin 3.2 g/dL (1.3-4.6); Glucose 102 mg/dL (65-115); Osmolality Calculated 284 mOsm/kg (285-295); Potassium 3.3 mmol/L (3.5-5.1); Sodium 136 mmol/L (136-145); Thyroid Stimulating Hormone 1.28 uIU/mL (0.27-4.20); Total Bilirubin 0.4 mg/dL (0.15-1.2)
--- NOTE | 2020-08-20 08:52 | ONC FU_ITS ---
Dr. Bermudez follow up note Patient: Farhad Begum Unit #: [id number]: 1945 Dicatated By: Bambi Bermudez M.D.Date of Visit:Aug 20, 2020 Onc Med Follow-up/Prog Note History of Present Illness: Mr. 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 Carcinoma invades into lamina propria, no muscularis propria present for evaluation eg pT1 Left lateral bladder wall lesion was also biopsied and it showed reactive atypical urothelium in the background of abundant admitted this polypoid granulation tissue no malignancy identified no dysplasia seen. Biopsy from bladder, left trigone shows carcinoma in situ no invasive malignancy seen. 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 Patient denies any specific complaints, denies any hematuria, denies any abdominal pain, denies any new bony pains, denies any weight loss, denies any fever chills or dysuria. 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 He presented for follow-up on September 02 with a rash on his forearms and hands at that time. It was opted to hold his Keytruda and have him return in 2 weeks. After 2 weeks, his rash was better but had not resolved-it was not particularly itchy it was just there. Mr Begum was referred to dermatology with Dr. Diaz, whom he saw on October 29, 2019. Per Dr Diaz's impression, the rash did not appear to be drug related and immunotherapy could be resumed. Patient was given TAC cream. His immunotherapy was on hold from August 14, 2019 until April 23, 2020 Mr Begum had immunotherapy on August 14, 2019 and then his treatment was placed on hold due to the rash. He had repeat bladder biopsy per Dr Gonzalez on 01/24/2020. There were four biopsies reported by pathology with no in situ carcinoma or invasive cancer identified in 3/4 of the specimes. 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 No invasive carcinoma identified . Case was discussed with Dr. Gonzalez , he reported the follow-up cystoscopy showed huge improvement with some area of patchy erythema but they are much smaller and less suspicious. There was one area that was more typical for residual CIS but is very small on the right lateral wall. With that dicussion it was decided to continue with immunotherapy and follow-up with cystoscopy. He resumed ever 3 week Keytruda on April 23, 2020. He has tolerated it well. Came for follow-up, denies any specific complaints, no fever chills, no nausea or vomiting, no diarrhea or constipation, no shortness of breath, no skin rash, no jaundice, tolerating 3 weekly Keytruda well otherwise Medications: Cefuroxime Axetil 1 Tablet (of 500 mg) Oral b.i.d., DHS Zinc Shampoo Topical PRN, Potassium Chloride Mile ER 3 Tablet (of 10 meq) Tablet, controlled release Oral b.i.d., Procardia XL 1 Tablet (of 60 mg) Tablet SR 24 HR Oral b.i.d., Sulfacetamide Sodium Cream Topical PRN, Tamsulosin HCl 2 Capsule (of 0.4 mg) Oral at bedtime, Triamterene-HCTZ 1 Capsule (of 37.5-25 mg) Oral b.i.d., ZyrTEC Allergy 1 Capsule (of 10 mg) Oral daily PRN Allergies: No Known Allergies. Review of Systems: Review of Systems is not available for this patient. Vital Signs: Performed on Aug 20, 2020 08:30 Height - 72.00 in Weight - 205.0 lbs (HIGH) BSA - 2.15 sq.m BMI - 27.80 Temperature - 97.9 F (LOW) Pulse - 84 /min Respiration - 18 /min BP - 125/69 mm(hg) O2 Sat - 97 % Pain - 0 Performance Status: 0 - Fully active, able to carry on all predisease activities without restrictions. (ECOG) Physical Examination: ENMT - No mouth sores, no thrush, no jaundice, Respiratory - Lungs are clear to auscultation, Cardiovascular - Regular rate and rhythm of heart, Abdomen - Soft, bowel sounds present, Extremities - No visible edema. Lab/Imaging: Test performed on Jun 17, 2020 09:38 Sodium 138 mmol/L TSH 1.29 uIU/mL Potassium 3.4 mmol/L Chloride 100 mmol/L CO2 28 mmol/L Anion Gap 13.4 BUN 17 mg/dL Creatinine 0.7 mg/dL Cr Clearance (Est) 120.15 mL/min Glucose 101 mg/dL Osmolality - Calculated 288 mOsm/kg Calcium 9.6 mg/dL Protein, Total 7.8 g/dL Albumin 3.9 g/dL Globulin 3.9 g/dL Bilirubin, Total 0.5 mg/dL ALT (SGPT) 28 U/L AST (SGOT) 24 U/L Alkaline Phosphatase 63 IU/L WBC 6.7 10 3/uL RBC 5.06 10 6/uL HGB 14.2 g/dL HCT 42.8 % MCV 84.6 fL MCH 28.1 pg MCHC 33.2 g/dL RDW 13.8 % Platelet Count 307 10 3/cmm MPV 10.3 fL Neutrophils 4.42 10 3/uL Lymphocytes 1.5 10 3/uL Monocytes 0.6 10 3/uL Eosinophils 0.1 10 3/uL Basophils 0.1 10 3/uL Neutrophil % 66.1 % Lymphocyte % 21.9 % Monocyte % 9.4 % Eosinophil % 0.7 % Basophils % 1.5 % NRBC % 0 % Test performed on Jun 03, 2020 08:50 CBC Slide Review Slide Review Perform SLIDE REVIEW AGREES WITH AUTOMATED RESULTS ST Test performed on May 13, 2020 09:10 Magnesium 1.6 mg/dL Impression: Papillary urothelial carcinoma, high-grade, involving anterior urinary bladder wall, per TURBT done on 05/14/2019, final pathology report showed carcinoma invades into lamina propria, no muscularis propria present for evaluation pT1 Status post intravesical therapy with BCG now 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 Started on 3 weekly Keytruda on 07/24/2019. His Keytruda is currently on hold due to maculopapular rash on forearms and hands. His last dose was 08/14/2019. in November 2019, discussed with patient regarding his question concern, his skin rash involving bilateral upper extremities almost resolved now with mild erythema,, the last dose of Keytruda was given in 08/12 he was told rash could not be due to immunotherapy.Patient underwent follow-up cystoscopy which showed huge improvement with immunotherapy Restarted on Keytruda on April 23, 2020 Plan: Discussed with patient regarding his labs white blood count 5.9 hemoglobin 14.1 hematocrit 41.9 platelets 197,000 CMP , TSH 1.28 within normal limit except potassium 3.3 Clinically, patient doing well with no new signs symptom, tolerating Keytruda well, will proceed with next 3 weekly dose today and then he will return to clinic in 3 weeks with CBC CMP As far as mild hypokalemia is concerned, patient is on potassium supplement at home, as per patient he missed his potassium dose, patient was advised to take extra dose today and then stay regular with a potassium supplement as prescribed by his PMD, we will also contact Dr. Gonzalez's office regarding need for follow-up cystoscopy Signed By: Bambi Bermudez M.D. <<Signature on File>>
== END 2020-08-22 23:59 | disposition home or self-care (01) ==
LOC: ONCMED 06:51
PROVIDERS: Nurse Practitioner; PCP Family Medicine; Visit Provider Internal Medicine Hematology & Oncology
DX: Z51.12 Encounter for antineoplastic immunotherapy (principal); C67.0 Malignant neoplasm of trigone of bladder; Z79.899 Other long term (current) drug therapy
CPT/HCPCS: 80053; 84443; 85025; 96413; 99214; 99215; J7050; J9271

== ENCOUNTER 2020-09-10 07:16 | Outpatient (RCR) | payer MEDICARE, OTHER, SELFPAY ==
[2020-09-09 11:21] LABS: Basophils # 0.1 10^3/uL (0.0-0.1); Eosinophils # 0.1 10^3/uL (0.0-0.8); Eosinophils % 2.3 %; Hematocrit 43.7 % (42.0-52.0); Hemoglobin 14.4 g/dL (11.7-16.6); Lymphocytes # 1.2 10^3/uL (0.8-4.8); Lymphocytes % 20.5 %; Mean Corpuscular Hemoglobin 28.2 pg (28.0-34.0); Mean Corpuscular Volume 85.5 fL (80-94); Monocytes # 0.5 10^3/uL (0.2-0.9); Monocytes % 7.8 %; Neutrophils # 4.13 10^3/uL (1.8-7.7); Neutrophils % 68.1 %; Nucleated Red Blood Cells % 0 %; Platelet Count 210 10^3/cmm (130-400); Red Blood Count 5.11 10^6/uL (4.1-5.3); Red Cell Distribution Width 13.8 % (12.1-15.1); White Blood Count 6.1 10^3/uL (4.0-10.0)
[2020-09-09 11:46] LABS: Alanine Aminotransferase 12 U/L (0-41); Albumin Level 4.1 g/dL (3.5-5.2); Alkaline Phosphatase 64 IU/L (40-130); Anion Gap 13.5 (5-19); Aspartate Amino Transferase 20 U/L (0-40); Blood Urea Nitrogen 22 mg/dL (8-23); Calcium 9.2 mg/dL (8.5-10.5); Carbon Dioxide 29 mmol/L (22-29); Chloride 99 mmol/L (98-107); Globulin 3.7 g/dL (1.3-4.6); Glucose 135 mg/dL (65-115); Osmolality Calculated 291 mOsm/kg (285-295); Potassium 3.5 mmol/L (3.5-5.1); Sodium 138 mmol/L (136-145); Thyroid Stimulating Hormone 1.29 uIU/mL (0.27-4.20); Total Bilirubin 0.5 mg/dL (0.15-1.2); Total Protein 7.8 g/dL (6.6-8.7)
--- NOTE | 2020-09-10 13:17 | ONC FU_ITS ---
Dr. Bermudez follow up note Patient: Farhad Begum Unit #: [id number]: 1945 Dicatated By: Bambi Bermudez M.D.Date of Visit:September 10, 2020 Onc Med Follow-up/Prog Note History of Present Illness: Mr. 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 Carcinoma invades into lamina propria, no muscularis propria present for evaluation eg pT1 Left lateral bladder wall lesion was also biopsied and it showed reactive atypical urothelium in the background of abundant admitted this polypoid granulation tissue no malignancy identified no dysplasia seen. Biopsy from bladder, left trigone shows carcinoma in situ no invasive malignancy seen. 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 Patient denies any specific complaints, denies any hematuria, denies any abdominal pain, denies any new bony pains, denies any weight loss, denies any fever chills or dysuria. 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 He presented for follow-up on September 02 with a rash on his forearms and hands at that time. It was opted to hold his Keytruda and have him return in 2 weeks. After 2 weeks, his rash was better but had not resolved-it was not particularly itchy it was just there. Mr Begum was referred to dermatology with Dr. Diaz, whom he saw on October 29, 2019. Per Dr Diaz's impression, the rash did not appear to be drug related and immunotherapy could be resumed. Patient was given TAC cream. His immunotherapy was on hold from August 14, 2019 until April 23, 2020 Mr Begum had immunotherapy on August 14, 2019 and then his treatment was placed on hold due to the rash. He had repeat bladder biopsy per Dr Gonzalez on 01/24/2020. There were four biopsies reported by pathology with no in situ carcinoma or invasive cancer identified in 3/4 of the specimes. 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 No invasive carcinoma identified . Case was discussed with Dr. Gonzalez , he reported the follow-up cystoscopy showed huge improvement with some area of patchy erythema but they are much smaller and less suspicious. There was one area that was more typical for residual CIS but is very small on the right lateral wall. With that dicussion it was decided to continue with immunotherapy and follow-up with cystoscopy. He resumed ever 3 week Keytruda on April 23, 2020. He has tolerated it well. Came for follow-up, denies any specific complaints, no fever chills, no nausea or vomiting, no diarrhea or constipation, no skin rash, no jaundice, no shortness of breath, tolerating 3 weekly Keytruda well otherwise Medications: Cefuroxime Axetil 1 Tablet (of 500 mg) Oral b.i.d., DHS Zinc Shampoo Topical PRN, Potassium Chloride Mile ER 3 Tablet (of 10 meq) Tablet, controlled release Oral b.i.d., Procardia XL 1 Tablet (of 60 mg) Tablet SR 24 HR Oral b.i.d., Sulfacetamide Sodium Cream Topical PRN, Tamsulosin HCl 2 Capsule (of 0.4 mg) Oral at bedtime, Triamterene-HCTZ 1 Capsule (of 37.5-25 mg) Oral b.i.d., ZyrTEC Allergy 1 Capsule (of 10 mg) Oral daily PRN Allergies: No Known Allergies. Review of Systems: Review of Systems is not available for this patient. Vital Signs: Performed on September 10, 2020 11:01 Height - 72.00 in Weight - 199.8 lbs (LOW) BSA - 2.13 sq.m BMI - 27.10 Temperature - 97.2 F (LOW) Pulse - 65 /min Respiration - 18 /min BP - 134/61 mm(hg) O2 Sat - 95 % (LOW) Pain - 0 Performance Status: 0 - Fully active, able to carry on all predisease activities without restrictions. (ECOG) Physical Examination: ENMT - No mouth sores, no thrush, no jaundice, Respiratory - Lungs are clear to auscultation, Cardiovascular - Regular rate and rhythm of heart, Abdomen - Soft, bowel sounds present, Extremities - No visible edema or rash but old healing ecchymosis involving upper extremities. Lab/Imaging: Test performed on Jun 17, 2020 09:38 Sodium 138 mmol/L TSH 1.29 uIU/mL Potassium 3.4 mmol/L Chloride 100 mmol/L CO2 28 mmol/L Anion Gap 13.4 BUN 17 mg/dL Creatinine 0.7 mg/dL Cr Clearance (Est) 120.15 mL/min Glucose 101 mg/dL Osmolality - Calculated 288 mOsm/kg Calcium 9.6 mg/dL Protein, Total 7.8 g/dL Albumin 3.9 g/dL Globulin 3.9 g/dL Bilirubin, Total 0.5 mg/dL ALT (SGPT) 28 U/L AST (SGOT) 24 U/L Alkaline Phosphatase 63 IU/L WBC 6.7 10 3/uL RBC 5.06 10 6/uL HGB 14.2 g/dL HCT 42.8 % MCV 84.6 fL MCH 28.1 pg MCHC 33.2 g/dL RDW 13.8 % Platelet Count 307 10 3/cmm MPV 10.3 fL Neutrophils 4.42 10 3/uL Lymphocytes 1.5 10 3/uL Monocytes 0.6 10 3/uL Eosinophils 0.1 10 3/uL Basophils 0.1 10 3/uL Neutrophil % 66.1 % Lymphocyte % 21.9 % Monocyte % 9.4 % Eosinophil % 0.7 % Basophils % 1.5 % NRBC % 0 % Test performed on Jun 03, 2020 08:50 CBC Slide Review Slide Review Perform SLIDE REVIEW AGREES WITH AUTOMATED RESULTS ST Test performed on May 13, 2020 09:10 Magnesium 1.6 mg/dL Impression: Papillary urothelial carcinoma, high-grade, involving anterior urinary bladder wall, per TURBT done on 05/14/2019, final pathology report showed carcinoma invades into lamina propria, no muscularis propria present for evaluation pT1 Status post intravesical therapy with BCG now 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 Started on 3 weekly Keytruda on 07/24/2019. His Keytruda is currently on hold due to maculopapular rash on forearms and hands. His last dose was 08/14/2019. in November 2019, discussed with patient regarding his question concern, his skin rash involving bilateral upper extremities almost resolved now with mild erythema,, the last dose of Keytruda was given in 08/12 he was told rash could not be due to immunotherapy.Patient underwent follow-up cystoscopy which showed huge improvement with immunotherapy Restarted on Keytruda on April 23, 2020 Plan: Discussed with patient regarding his labs white blood count 6.1 hemoglobin 14.4 hematocrit 43.7 platelets 210,000 CMP within normal limits Clinically, patient doing well with no new signs symptom, tolerating 3 weekly Keytruda well, will proceed with next dose today and then patient is scheduled see Dr. Gonzalez on September 26, 2020 for possible follow-up cystoscopy. And he will return to clinic 1 week after his urology evaluation with CBC CMP, at that time, based on cystoscopy findings, we will decide whether to continue with Keytruda or observe. Signed By: Bambi Bermudez M.D. <<Signature on File>>
== END 2020-09-22 23:59 | disposition home or self-care (01) ==
LOC: ONCMED 07:16
PROVIDERS: PCP Family Medicine; Visit Provider Internal Medicine Hematology & Oncology
DX: Z51.12 Encounter for antineoplastic immunotherapy (principal); C67.0 Malignant neoplasm of trigone of bladder; R21 Rash and other nonspecific skin eruption; Z79.899 Other long term (current) drug therapy
CPT/HCPCS: 80053; 84443; 85025; 96413; 99215; J7050; J9271

== ENCOUNTER → 2020-09-26 10:02 | Outpatient (BNVA) | payer MEDICARE, OTHER, SELFPAY | PROVIDERS: PCP Family Medicine; Visit Provider Urology | DX: C67.8 Malignant neoplasm of overlapping sites of bladder (principal) | CPT/HCPCS: 81003; 87635 ==

== ENCOUNTER 2020-09-29 16:49 | Observation (INO) | payer MEDICARE, OTHER, SELFPAY ==
[2020-09-26 17:23] VITALS: BMI 26.0
[2020-09-29] VITALS (12 sets, daily range): BP systolic 114–152; BP diastolic 67–79; PULSE 58–74; RESP 16–19; TEMP 36.2–36.6; O2SAT 91–98
--- NOTE | 2020-09-29 13:05 | ANES.PREANE2 ---
Pre-Anesthetic Assessment Pre-Anesthetic Assessment: Height/Weight: Height 1.83 m Weight 87.09 kg Temp Pulse Resp BP Pulse Ox 98 F 63 18 137/71 94 09/29/20 12:16 09/29/20 12:16 09/29/20 12:16 09/29/20 12:16 09/29/20 12:16 Preop Diagnosis: Recurrent bladder cancer/CIS. Suspicious mucosa Proposed Procedure: Operation Date: 09/29/20 15:10 Proposed Procedures p Transurethral Resection Bladder Tumor 84298 c67.8(Not Applicable) - Leo Gonzalez MD s Cystoscopy(Not Applicable) - Leo Gonzalez MD Familial anesthetic complications: Difficult airway requiring glidescope (shaw 2 and 3 w/ bougie failed) and glidescope gave grade III view. He was given note from dr. machado in 2015 stating he required glidescope, but that he was an easy mask. presents that note to me todaly. He has done well in LMAs in the past Was Beta Whit taken within 24 hours: N/A Was Clonidine taken within 24 hours: N/A Last intake: Intake Last Liquid Date 09/29/20 Last Liquid Time 08:00 Last Solid Date 09/28/20 Social: Social History: No alcohol and No tobacco Comment: former smoker Exam: Pre-Anes Outpt Exam: alert, oriented x 3, clear to auscultation bilaterally and regular rate & rhythm Airway: Cervical ROM: WNL MP: 3 Dentition: Other (missing teeth) CV/HEM: CV/HEM: HTN Anesthetic Plan: ASA status: 3 Anesthesia: General Risk of > 500 ml blood loss (7ml/kg in children): No PFSH Anesthesia PFSH: Medical History (Updated 09/26/20 @ 11:33 by Delisa Hammond NP) Hypertension Malignant neoplasm of overlapping sites of bladder Patient with history of carcinoma in situ treated with prolonged BCG. After failed BCG started KEYTRUDA with cystoscopic evidence of improvement December 2019 Surgical History H/O transurethral destruction of bladder lesion Family History Father , IN HIS 80'S CAD (coronary artery disease) Mother , IN HER 70'S Chronic kidney disease (CKD) Social History Smoking and tobacco status: former smoker Alcohol intake: current Alcohol intake frequency: few times a month Marital status: Current occupational status: retired History of recent travel: No Data Anesthesia Cardiac Studies: No Data to Display
[2020-09-29] MEDS: sodium chloride 0.9% 1,000 ML 30 ML IV (13:20)
--- NOTE | 2020-09-29 15:45 | P.OP_ITS ---
Operative Report Date of procedure: September 29, 2020 Pre-op Diagnosis: Recurrent bladder cancer/CIS. Suspicious mucosa Post-op diagnosis: same Post-op Findings: Erythematous mucosa right lateral posterior wall. Adequate sampling obtained. Procedure Done: Cystoscopy transurethral resection/fulguration bladder tumor, Medium Pathology: Right posterior floor and lateral wall samples Anesthesia: General Estimated blood loss: Minimal Urine output: Not measured Complications: None Findings: Adequate sampling of the suspicious mucosa. Condition: stable Disposition: PACU Brief History: Mr. 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 He was then advanced to Keytruda which demonstrated a substantial response. The bladder itself cleared up dramatically. He had some rebiopsies several months ago which showed 3 areas of inflammatory change and one very small focal area of CIS residual. He was continued on Keytruda and on recent surveillance cystoscopy showed again some suspicious mucosa and he is back now for rebiopsy of that area. Procedure: After routine preoperative evaluation examination and obtaining of informed consent he was taken to the operating suite on 09/29/2020 where general anesthesia was administered without difficulty after appropriate timeout was performed, SCDs confirmed to be functioning, preoperative antibiotics administered, beta- [place] protocol confirmed. Prepped and draped in usual sterile fashion in dorsolithotomy position paying careful attention to avoiding pressure points. 21 Bulgarian cystoscope with 30 degree lens was introduced into the urethra meatus and advanced into the bladder under videoscopy. The bladder was systematically examined with both 30 and 70 degree lenses. Cold cup biopsy forceps were used to resect several areas of this erythematous mucosa with good sampling. Bugbee cautery probe was utilized to fulgurate the areas of resection. Total area resected/fulgurated approximately 2.5 to 3 cm All specimens were sent for pathologic evaluation. At the completion of the procedure there was no active bleeding. No further specimens remain in the bladder. And his bladder was drained with a 20 Bulgarian three-way Ornelas catheter with irrigation port plugged Tolerated procedure well without complications and was awakened in the operating room and returned to the care of room in stable condition.
--- NOTE | 2020-09-29 15:45 | W.PM.OPSUD ---
Surgery/Procedure H&P Update DATE OF PROCEDURE: September 29, 2020 DATE H&P PERFORMED: 09/26/20 H&P UPDATE INFORMATION: I have reviewed H&P completed within last 30 days, I have examined patient prior to procedure, No changes to prior documentation and H&P is in [facility] EMR on date indicated PREOP DIAGNOSIS: Recurrent bladder cancer/CIS. Suspicious mucosa PLANNED PROCEDURE: Operation Date: 09/29/20 15:10 Proposed Procedures p Transurethral Resection Bladder Tumor 60034 c67.8(Not Applicable) - Leo Gonzalez MD s Cystoscopy(Not Applicable) - Leo Gonzalez MD
[2020-09-29] MEDS: tamsulosin 0.4 mg Capsule PO (17:28)
[2020-09-29] MEDS: docusate sodium 100 mg Capsule PO (17:28)
[2020-09-29] MEDS: dextrose 5%-ns + KCl 20 20 MEQ/1,000 ML BAG 30 MEQ IV (17:28)
[2020-09-29] MEDS: NIFEdipine ER (24 hr) 30 mg Tablet 60 MG PO (17:32)
[2020-09-29] MEDS: potassium chloride ER 10 mEq Tablet 30 MEQ PO (17:32)
[2020-09-29] MEDS: fluticasone nasal spray 16gm Btl 1 SPRAY INTRANASAL (19:39)
--- NOTE | 2020-09-29 20:39 | ANE.PACU2 ---
Inpatient post-anesthesia follow up: Vital signs: Temperature 97.1 F Pulse Rate 59 Respiratory Rate 16 Blood Pressure 120/70 Pulse Oximetry 95 Oxygen Delivery Me thod [ Nasal Cannula Current Rate & Del deepak] Oxygen Delivery Me thod Nasal Cannula Oxygen Flow Rate [ Current Rate 2 & Delivery] Oxygen Flow Rate 2 Fraction of Inspir ed Oxygen Hydration adequate: Yes Nausea and vomiting: No Pain level: 2 Mental status: Baseline
[2020-09-30 00:38] VITALS: BP 120/68; PULSE 56; RESP 16; TEMP 36.4; O2SAT 92
[2020-09-30 04:00] VITALS: BP 128/76; PULSE 56; RESP 18; TEMP 36.6; O2SAT 93
--- NOTE | 2020-09-30 05:00 | PM.DCS ---
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 After failed BCG started KEYTRUDA with cystoscopic evidence of improvement December 2019 (2) Hypertension: Status: Acute Qualifiers: Hypertension type: essential hypertension Qualified Code(s): I10 - Essential (primary) hypertension Reason for Visit Reason for Visit: CYSTOSCOPY TRANSURETHRAL RESECTION OF BLADDER TUMO Hospital Course Hospital Course TURBT on day of admission. Path pending at D/C Urine remained clear. Cath discontinued on post op day #1 Confirmed that he could pass the catheter if he has postoperative retention. Continued on cephalexin at home until confirmed adequate emptying. Physical Exam Const: COMMON NORMALS: no acute distress, alert and well nourished GENERAL APPEARANCE: well kempt and well developed ORIENTATION/CONSCIOUSNESS: not confused Neck/C-Spine: COMMON NORMALS: full ROM Resp: COMMON NORMALS: normal respiratory effort EFFORT & INSPECTION: No labored and No Actively coughing Neuro: COMMON NORMALS: no focal motor deficits SENSORIUM/ORIENTATION: Yes alert Psych: COMMON NORMALS: mental status grossly normal APPEARANCE: Yes grossly normal and Yes well kempt ATTITUDE: Yes calm and Yes engaged Skin: COMMON NORMALS: no rashes or lesions noted and no jaundice GENERAL SKIN EXAM: no rashes or lesions noted Urinary Catheter Management^: 3-way Urethral CBI: Cath Placed During This Visit: yes Reason for Continuing Indwelling Catheter: Other Urinary Catheter Date of Insertion: 09/29/20 Urinary Catheter Time of Insertion: 16:22 Discharge Data Data Completed and Pending: Pending at discharge Category Date Time Status Pathology: Surgic al [PTH] Routine Pth 09/29/20 16:38 Ordered Vitals: Last Vital Signs Temp 97.8 F 09/30/20 04:00 Pulse 56 L 09/30/20 04:00 Resp 18 09/30/20 04:00 BP 128/76 09/30/20 04:00 Pulse Ox 93 09/30/20 04:00 Discharge Plan Discharge Patient Disposition: Home Condition: Stable Prescriptions: New cephalexin 500 mg capsule 500 mg PO BID 7 Days Qty: 14 RF: 0 Continued DHS Zinc 2 % shampoo 1 applic TOPICAL DAILY RF: 0 sulfacetamide sodium (acne) 10 % suspension 1 applic TOPICAL DAILY RF: 0 potassium chloride 10 mEq capsule, extended release 10 meq PO .COMPLEX Qty: 90 RF: 3 tamsulosin 0.4 mg capsule 0.4 mg PO BID Qty: 180 RF: 3 triamterene-hydrochlorothiazid [Dyazide] 37.5-25 mg capsule 1 cap PO BID Qty: 180 RF: 3 nifedipine [Procardia XL] 60 mg tablet extended release 24hr 60 mg PO BID Qty: 180 RF: 3 fluticasone propionate [Flonase Allergy Relief] 50 mcg/actuation spray,suspension 1 spray intranasal DAILY Qty: 16 RF: 1 Discharge Orders: Discharge Order (Routine); Ordered 09/30/20 Ordered By: Leo Gonzalez Referrals: Leo Gonzalez MD [Physician] - 7-10 days (Path check, PVR ) Discharge Diet: Usual diet Discharge Activity: Limit activity as instructed Patient Instructions: Opioid Safety Activity Restrictions/Additional Instructions: 1. No lifting > 10# for 3 weeks 2. Perform self catheterization as needed if not sure you are emptying adequately 3. Followup in 7-10 days for pathology review and bladder emptying check 4. A prescription for antibiotics has been sent to your pharmacy. Please start those today. Discharge Attestations Time Spent in Discharge Care*: less than 30 min Status at Discharge: Cognitive status at discharge: cognitively intact, Behavioral status at discharge: cooperative, Quality Metrics Clinical Quality Measures During this hospital stay, did patient experience: None Coding Level of Care Code Acute g [facility] note Exam Detailed Diagnoses Malignant neoplasm of overlapping sites of bladder C67.8 Hypertension I10 Hypertension type: essential hypertension
--- NOTE | 2020-09-30 05:10 | PC.NURSE ---
SHIFT SUMMARY Has rested well. Has had no c/o pain. Ornelas is draining well with urine clear yellow. Taking po fluids well. Has c/o nasal stuffiness tonight. Says the Flonase helped but still quite stuffy and says cannot blow anything out.
[2020-09-30 08:00] VITALS: BP 132/73; PULSE 67; RESP 18; TEMP 36.4; O2SAT 95
[2020-09-30] MEDS: NIFEdipine ER (24 hr) 30 mg Tablet 60 MG PO (08:26)
[2020-09-30] MEDS: tamsulosin 0.4 mg Capsule PO (08:26)
[2020-09-30] MEDS: docusate sodium 100 mg Capsule PO (08:26)
[2020-09-30] MEDS: potassium chloride ER 10 mEq Tablet 30 MEQ PO (08:27)
[2020-09-30 09:45] VITALS: BP 140/70; PULSE 79; RESP 18; TEMP 36.4; O2SAT 95
--- NOTE | 2020-09-30 10:43 | PC.NURSE ---
AM NOTE PT HAS VOIDED X 2 APPROX 15-20 CC EACH TIME - URINE YELLOW WITH NO CLOTS NOTED - PT STATES HE FEELS LIKE HE IS EMPTYING AND DOES NOT NEED TO VOID - REQUESTED A DIET COLA IN ASSISTANCE TO VOID - GIVEN - WILL CONTINUE TO MONITOR AND BLADDER SCAN POST 3RD VOID - AT SIDE
--- NOTE | 2020-09-30 12:16 | PC.NURSE ---
SELF CATH PT VOIDED APPROX 200 CC OF CLEAR YELLOW URINE INTO 4TH SPECIMEN CUP - PT STATES I KNEW I WOULD URINATE AFTER MY DIET COKE - EDUCATION GIVEN TO PT AND AFTER VOIDING REGARDING SELF CATHETERIZATION - PT CONFIDENT IN HIS ABILITY TO CATH IF NEED BE - UNDERSTANDS WHEN TO DO THIS - PT GAVE STEP BY STEP INSTRUCTION TO THIS NURSE ON SELF CATH AND CLEANING -
--- NOTE | 2020-09-30 12:57 | PC.NURSE ---
DISCHARGE EDUCATION DISCHARGE EDUCATION REVIEWED WITH BOTH AND PATIENT - BOTH VERBALIZE UNDERSTANDING - TAKEN TO PRIVATE CAR VIA STAFF
[2020-09-30 12:59] VITALS: BP 140/70; PULSE 79; RESP 18; TEMP 36.4; O2SAT 95
== END 2020-09-30 12:59 | disposition home or self-care (01) ==
LOC: MEDSURG 16:49
PROVIDERS: Admitting Provider Urology; PCP Family Medicine; Visit Provider Urology
PROC: 0TBB8ZZ Excision of Bladder, Via Natural or Artificial Opening Endoscopic (ICD-10-PCS; CPT 52235; principal; 2020-09-29 15:00)
PROC: 0TJB8ZZ Inspection of Bladder, Via Natural or Artificial Opening Endoscopic (ICD-10-PCS; CPT 52000; 2020-09-29 15:00)
DX: C67.8 Malignant neoplasm of overlapping sites of bladder (principal); I10 Essential (primary) hypertension; Z87.891 Personal history of nicotine dependence
CPT/HCPCS: 52235; 51798; 88305; G0378; J0690; J2405; J2704; J3010; J3490; J7030

== ENCOUNTER → 2020-10-10 18:23 | Outpatient (BNVA) | payer MEDICARE, OTHER, SELFPAY | PROVIDERS: PCP Family Medicine; Visit Provider Urology | DX: C67.8 Malignant neoplasm of overlapping sites of bladder (principal) | CPT/HCPCS: 81003 ==

== ENCOUNTER 2020-10-22 05:46 | Outpatient (RCR) | payer MEDICARE, OTHER, SELFPAY ==
[2020-10-01 08:23] LABS: Basophils # 0.1 10^3/uL (0.0-0.1); Basophils % 1.1 %; Eosinophils # 0.6 10^3/uL (0.0-0.8); Hematocrit 42.5 % (42.0-52.0); Hemoglobin 14.4 g/dL (11.7-16.6); Lymphocytes # 1.2 10^3/uL (0.8-4.8); Lymphocytes % 15.4 %; Mean Corpuscular HGB Conc 33.9 g/dL (30.0-36.0); Mean Corpuscular Hemoglobin 28.3 pg (28.0-34.0); Mean Corpuscular Volume 83.5 fL (80-94); Mean Platelet Volume 10.5 fL (7.4-10.4); Monocytes # 0.8 10^3/uL (0.2-0.9); Monocytes % 10.2 %; Neutrophils # 4.85 10^3/uL (1.8-7.7); Nucleated Red Blood Cells % 0 %; Platelet Count 214 10^3/cmm (130-400); Red Blood Count 5.09 10^6/uL (4.1-5.3); Red Cell Distribution Width 13.4 % (12.1-15.1); White Blood Count 7.5 10^3/uL (4.0-10.0)
[2020-10-01 09:04] LABS: Alanine Aminotransferase 11 U/L (0-41); Albumin Level 3.9 g/dL (3.5-5.2); Alkaline Phosphatase 66 IU/L (40-130); Anion Gap 12.3 (5-19); Aspartate Amino Transferase 21 U/L (0-40); Blood Urea Nitrogen 15 mg/dL (8-23); Calcium 8.8 mg/dL (8.5-10.5); Carbon Dioxide 28 mmol/L (22-29); Chloride 99 mmol/L (98-107); Globulin 3.3 g/dL (1.3-4.6); Glucose 114 mg/dL (65-115); Osmolality Calculated 284 mOsm/kg (285-295); Potassium 3.3 mmol/L (3.5-5.1); Sodium 136 mmol/L (136-145); Thyroid Stimulating Hormone 1.74 uIU/mL (0.27-4.20); Total Bilirubin 0.3 mg/dL (0.15-1.2); Total Protein 7.2 g/dL (6.6-8.7)
--- NOTE | 2020-10-01 14:18 | ONC FU_ITS ---
Dr. Bermudez follow up note Patient: Farhad Begum Unit #: [id number]: 1945 Dicatated By: Bambi Bermudez M.D.Date of Visit:Oct 01, 2020 Onc Med Follow-up/Prog Note History of Present Illness: Mr. 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 Carcinoma invades into lamina propria, no muscularis propria present for evaluation eg pT1 Left lateral bladder wall lesion was also biopsied and it showed reactive atypical urothelium in the background of abundant admitted this polypoid granulation tissue no malignancy identified no dysplasia seen. Biopsy from bladder, left trigone shows carcinoma in situ no invasive malignancy seen. 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 Patient denies any specific complaints, denies any hematuria, denies any abdominal pain, denies any new bony pains, denies any weight loss, denies any fever chills or dysuria. 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 He presented for follow-up on September 02 with a rash on his forearms and hands at that time. It was opted to hold his Keytruda and have him return in 2 weeks. After 2 weeks, his rash was better but had not resolved-it was not particularly itchy it was just there. Mr Begum was referred to dermatology with Dr. Diaz, whom he saw on October 29, 2019. Per Dr Diaz's impression, the rash did not appear to be drug related and immunotherapy could be resumed. Patient was given TAC cream. His immunotherapy was on hold from August 14, 2019 until April 23, 2020 Mr Begum had immunotherapy on August 14, 2019 and then his treatment was placed on hold due to the rash. He had repeat bladder biopsy per Dr Gonzalez on 01/24/2020. There were four biopsies reported by pathology with no in situ carcinoma or invasive cancer identified in 3/4 of the specimes. 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 No invasive carcinoma identified . Case was discussed with Dr. Gonzalez , he reported the follow-up cystoscopy showed huge improvement with some area of patchy erythema but they are much smaller and less suspicious. There was one area that was more typical for residual CIS but is very small on the right lateral wall. With that dicussion it was decided to continue with immunotherapy and follow-up with cystoscopy. He resumed ever 3 week Keytruda on April 23, 2020. He has tolerated it well. Came for follow-up, denies any specific complaints, no fever chills, no nausea or vomiting, no diarrhea constipation, patient recently underwent cystoscopy evaluation, biopsies were obtained report is pending, patient is on Keytruda, tolerating well Medications: Cefuroxime Axetil 1 Tablet (of 500 mg) Oral b.i.d., DHS Zinc Shampoo Topical PRN, Potassium Chloride Mile ER 3 Tablet (of 10 meq) Tablet, controlled release Oral b.i.d., Procardia XL 1 Tablet (of 60 mg) Tablet SR 24 HR Oral b.i.d., Sulfacetamide Sodium Cream Topical PRN, Tamsulosin HCl 2 Capsule (of 0.4 mg) Oral at bedtime, Triamterene-HCTZ 1 Capsule (of 37.5-25 mg) Oral b.i.d., ZyrTEC Allergy 1 Capsule (of 10 mg) Oral daily PRN Allergies: No Known Allergies. Review of Systems: Review of Systems is not available for this patient. Vital Signs: Performed on Oct 01, 2020 09:11 Height - 72.00 in Weight - 202.2 lbs (HIGH) BSA - 2.14 sq.m BMI - 27.42 Temperature - 97.2 F (LOW) Pulse - 74 /min Respiration - 18 /min BP - 127/68 mm(hg) O2 Sat - 96 % Pain - 0 Performance Status: 0 - Fully active, able to carry on all predisease activities without restrictions. (ECOG) Physical Examination: ENMT - No mouth sores, no thrush, no jaundice, Respiratory - Lungs are clear to auscultation, Cardiovascular - Regular rate and rhythm of heart, Abdomen - Soft, bowel sounds present, Extremities - No visible edema or rash. Lab/Imaging: Test performed on Jun 17, 2020 09:38 Sodium 138 mmol/L TSH 1.29 uIU/mL Potassium 3.4 mmol/L Chloride 100 mmol/L CO2 28 mmol/L Anion Gap 13.4 BUN 17 mg/dL Creatinine 0.7 mg/dL Cr Clearance (Est) 120.15 mL/min Glucose 101 mg/dL Osmolality - Calculated 288 mOsm/kg Calcium 9.6 mg/dL Protein, Total 7.8 g/dL Albumin 3.9 g/dL Globulin 3.9 g/dL Bilirubin, Total 0.5 mg/dL ALT (SGPT) 28 U/L AST (SGOT) 24 U/L Alkaline Phosphatase 63 IU/L WBC 6.7 10 3/uL RBC 5.06 10 6/uL HGB 14.2 g/dL HCT 42.8 % MCV 84.6 fL MCH 28.1 pg MCHC 33.2 g/dL RDW 13.8 % Platelet Count 307 10 3/cmm MPV 10.3 fL Neutrophils 4.42 10 3/uL Lymphocytes 1.5 10 3/uL Monocytes 0.6 10 3/uL Eosinophils 0.1 10 3/uL Basophils 0.1 10 3/uL Neutrophil % 66.1 % Lymphocyte % 21.9 % Monocyte % 9.4 % Eosinophil % 0.7 % Basophils % 1.5 % NRBC % 0 % Test performed on Jun 03, 2020 08:50 CBC Slide Review Slide Review Perform SLIDE REVIEW AGREES WITH AUTOMATED RESULTS ST Test performed on May 13, 2020 09:10 Magnesium 1.6 mg/dL Impression: Papillary urothelial carcinoma, high-grade, involving anterior urinary bladder wall, per TURBT done on 05/14/2019, final pathology report showed carcinoma invades into lamina propria, no muscularis propria present for evaluation pT1 Status post intravesical therapy with BCG now 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 Started on 3 weekly Keytruda on 07/24/2019. His Keytruda is currently on hold due to maculopapular rash on forearms and hands. His last dose was 08/14/2019. in November 2019, discussed with patient regarding his question concern, his skin rash involving bilateral upper extremities almost resolved now with mild erythema,, the last dose of Keytruda was given in 08/12 he was told rash could not be due to immunotherapy.Patient underwent follow-up cystoscopy which showed huge improvement with immunotherapy Restarted on Keytruda on April 23, 2020 Plan: Discussed with patient regarding his labs white blood count 7.5 hemoglobin 14.4 hematocrit 42.5 platelets 214,000 CMP within normal limit except potassium 3.3 and TSH is also within normal range Clinically, patient doing well, tolerating 3 weekly Keytruda well, lab work-up is reasonable, will proceed with the next dose of Keytruda 200 mg and then he will return to clinic in 3 weeks, in the meantime ,we will obtain and follow with recently done cystoscopy, report as well as biopsy reports. Case was discussed with Dr. Gonzalez this morning, as per him, there was no obvious abnormality seen on cystoscopy except some inflammation in 1 area, biopsies were obtained, report is pending., If there is no evidence of superficial invasive tumor, will continue with Keytruda up to 24 months from starting date in June 2019, on the other hand if there is evidence of invasive tumor, may discuss about surgical option. Signed By: Bambi Bermudez M.D. <<Signature on File>>
[2020-10-22 13:21] LABS: Basophils # 0.1 10^3/uL (0.0-0.1); Eosinophils # 0.4 10^3/uL (0.0-0.8); Eosinophils % 4.6 %; Hematocrit 44.3 % (42.0-52.0); Hemoglobin 14.9 g/dL (11.7-16.6); Lymphocytes # 1.5 10^3/uL (0.8-4.8); Lymphocytes % 18.2 %; Mean Corpuscular HGB Conc 33.6 g/dL (30.0-36.0); Mean Corpuscular Hemoglobin 28.1 pg (28.0-34.0); Mean Corpuscular Volume 83.4 fL (80-94); Mean Platelet Volume 11.2 fL (7.4-10.4); Monocytes # 0.7 10^3/uL (0.2-0.9); Monocytes % 8.7 %; Neutrophils # 5.55 10^3/uL (1.8-7.7); Neutrophils % 67.3 %; Nucleated Red Blood Cells % 0 %; Platelet Count 213 10^3/cmm (130-400); Red Blood Count 5.31 10^6/uL (4.1-5.3); Red Cell Distribution Width 13.3 % (12.1-15.1); White Blood Count 8.3 10^3/uL (4.0-10.0)
[2020-10-22 13:51] LABS: Alanine Aminotransferase 13 U/L (0-41); Alkaline Phosphatase 65 IU/L (40-130); Anion Gap 11.5 (5-19); Aspartate Amino Transferase 19 U/L (0-40); Blood Urea Nitrogen 22 mg/dL (8-23); Calcium 8.9 mg/dL (8.5-10.5); Carbon Dioxide 27 mmol/L (22-29); Chloride 101 mmol/L (98-107); Glucose 92 mg/dL (65-115); Osmolality Calculated 285 mOsm/kg (285-295); Potassium 3.5 mmol/L (3.5-5.1); Sodium 136 mmol/L (136-145); Total Bilirubin 0.6 mg/dL (0.15-1.2)
[2020-10-22 14:46] LABS: Thyroid Stimulating Hormone 0.94 uIU/mL (0.27-4.20)
--- NOTE | 2020-10-29 09:53 | ONC FU_ITS ---
[facility] Patient Note Patient: Farhad Begum Unit #: [id number]: 1945 Dictated By: Kassi PerdomoDate of Visit: Oct 22, 2020 Onc MED Follow-Up/Prog Note Chief Complaint: urinary bladder cancer History of Present Illness: Mr. 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 Carcinoma invades into lamina propria, no muscularis propria present for evaluation eg pT1 Left lateral bladder wall lesion was also biopsied and it showed reactive atypical urothelium in the background of abundant admitted this polypoid granulation tissue no malignancy identified no dysplasia seen. Biopsy from bladder, left trigone shows carcinoma in situ no invasive malignancy seen. 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 He presented for follow-up on September 02 with a rash on his forearms and hands at that time. It was opted to hold his Keytruda and have him return in 2 weeks. After 2 weeks, his rash was better but had not resolved-it was not particularly itchy it was just there. Mr Begum was referred to dermatology with Dr. Diaz, whom he saw on October 29, 2019. Per Dr Diaz's impression, the rash did not appear to be drug related and immunotherapy could be resumed. Patient was given TAC cream. His immunotherapy was on hold from August 14, 2019 until April 23, 2020 Mr Begum had immunotherapy on August 14, 2019 and then his treatment was placed on hold due to the rash. He had repeat bladder biopsy per Dr Gonzalez on 01/24/2020. There were four biopsies reported by pathology with no in situ carcinoma or invasive cancer identified in 3/4 of the specimes. 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 No invasive carcinoma identified . Case was discussed with Dr. Gonzalez , he reported the follow-up cystoscopy showed huge improvement with some area of patchy erythema but they are much smaller and less suspicious. There was one area that was more typical for residual CIS but is very small on the right lateral wall. With that dicussion, it was decided to continue with immunotherapy and follow-up with cystoscopy. Mr Begum resumed every 3 week Keytruda on April 23, 2020. He has tolerated it well. Mr. Begum continues on the immunotherapy with the pembrolizumab/Keytruda. He continues to tolerate it well. He is here today for follow-up. He is due for cycle 11 pembrolizumab. He denies any new concerns. He states that he has not had any fever or chills. He denies any signs or symptoms of infection. He states he has not had any cough. He denies any hemoptysis. He has occasional dyspnea with exertion but does not have orthopnea. He denies chest pain palpitations. He denies any lower extremity edema. He denies any bowel or bladder changes. He has had no cough. He denies any colitis symptoms and denies any episodes of acute confusion. He continues to tolerate the pembrolizumab well. Mr. Begum does report that he had follow-up cystoscopy which reported no sign of cancer . His ECOG is 0. Past Medical History: Bph Hypertension Past Surgical History: Biopsy of bladder muscle TURBT Allergies: No Known Allergies. Medications: Cefuroxime Axetil 1 Tablet (of 500 mg) Oral b.i.d. DHS Zinc Shampoo Topical PRN Potassium Chloride Mile ER 3 Tablet (of 10 meq) Tablet, controlled release Oral b.i.d. Procardia XL 1 Tablet (of 60 mg) Tablet SR 24 HR Oral b.i.d. Sulfacetamide Sodium Cream Topical PRN Tamsulosin HCl 2 Capsule (of 0.4 mg) Oral at bedtime Triamterene-HCTZ 1 Capsule (of 37.5-25 mg) Oral b.i.d. ZyrTEC Allergy 1 Capsule (of 10 mg) Oral daily PRN Family History: Mr. Begum's mother at age 77: kidney disease, and stroke. Mr. Begum's father at age 82: heart disease. Mr. Begum has 2 sisters: 2 . Social History: Mr. Begum is . Mr. Begum no longer smokes. He has indicated exposure to the following products: chewing tobacco. pt states he drinks one shot once a day of bourbon. He also chews tobacco two cans a week. Review Of Symptoms: <See Above> Vital Signs: Performed on Oct 22, 2020 13:59 Height - 72.00 in Weight - 197.6 lbs (LOW) BSA - 2.12 sq.m BMI - 26.80 Temperature - 96.9 F (LOW) Pulse - 77 /min Respiration - 17 /min BP - 151/86 mm(hg) (HIGH) O2 Sat - 97 % Pain - 0,0 - Fully active, able to carry on all predisease activities without restrictions. (ECOG) Physical Examination: Constitutional Alert, oriented, no acute distress. Skin pink, warm and dry. Head Normocephalic; atraumatic. Eyes Conjunctivae and sclerae are clear and without icterus. Pupils are reactive and equal. Neck Supple without masses or thyromegaly. No jugular venous distension. Respiratory Lungs are clear to auscultation without rhonchi or wheezing. Cardiovascular Regular rate and rhythm of heart without murmurs,clicks, gallops or rubs. Abdomen Non-tender, non-distended, no masses or ascites. No guarding or rebound tenderness. No pulsatile masses. Back/Spine Non-tender to palpation. Extremities No visible deformities, no cyanosis, clubbing or edema. Musculoskeletal No tenderness or swelling, normal range of motion without obvious weakness. Integumentary No rashes or lesions. Neurologic No sensory or motor deficits, normal cerebellar function, normal gait. Psychiatric Alert and oriented times three. Coherent speech. Verbalizes understanding of our discussions today. Laboratory:Test performed on Oct 22, 2020 12:49 Sodium 136 mmol/L TSH 0.94 uIU/mL Potassium 3.5 mmol/L Chloride 101 mmol/L CO2 27 mmol/L Anion Gap 11.5 BUN 22 mg/dL Creatinine 0.6 mg/dL Cr Clearance (Est) 130.71 mL/min Glucose 92 mg/dL Osmolality - Calculated 285 mOsm/kg Calcium 8.9 mg/dL Protein, Total 7.0 g/dL Albumin 4.0 g/dL Globulin 3.0 g/dL Bilirubin, Total 0.6 mg/dL ALT (SGPT) 13 U/L AST (SGOT) 19 U/L Alkaline Phosphatase 65 IU/L WBC 8.3 10 3/uL RBC 5.31 10 6/uL HGB 14.9 g/dL HCT 44.3 % MCV 83.4 fL MCH 28.1 pg MCHC 33.6 g/dL RDW 13.3 % Platelet Count 213 10 3/cmm MPV 11.2 fL Neutrophils 5.55 10 3/uL Lymphocytes 1.5 10 3/uL Monocytes 0.7 10 3/uL Eosinophils 0.4 10 3/uL Basophils 0.1 10 3/uL Neutrophil % 67.3 % Lymphocyte % 18.2 % Monocyte % 8.7 % Eosinophil % 4.6 % Basophils % 1.0 % NRBC % 0 % Test performed on Jun 03, 2020 08:50 CBC Slide Review Slide Review Perform SLIDE REVIEW AGREES WITH AUTOMATED RESULTS ST Test performed on May 13, 2020 09:10 Magnesium 1.6 mg/dL Impression: Papillary urothelial carcinoma, high-grade, involving anterior urinary bladder wall, per TURBT done on 05/14/2019, final pathology report showed carcinoma invades into lamina propria, no muscularis propria present for evaluation pT1 Status post intravesical therapy with BCG now 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 Started on 3 weekly Keytruda on 07/24/2019. His Keytruda is currently on hold due to maculopapular rash on forearms and hands. His last dose was 08/14/2019. in November 2019, discussed with patient regarding his question concern, his skin rash involving bilateral upper extremities almost resolved now with mild erythema,, the last dose of Keytruda was given in 08/12 he was told rash could not be due to immunotherapy.Patient underwent follow-up cystoscopy which showed huge improvement with immunotherapy Restarted on Keytruda on April 23, 2020 Plan/Problems Addressed at this Visit: Papillary urothelial carcinoma, high-grade. He is currently undergoing immunotherapy with pembrolizumab. The current plan is to continue pembrolizumab up to 24 months from his starting date on June 2019. He recently had follow-up with Dr. Gonzalez and repeat cystoscopy at which time biopsies were obtained. Mr. Begum reports that those biopsies were good and did not show any signs of cancer . A. Continue with cycle 11 pembrolizumab at same dosing. B. Today's labs reviewed in detail discussed with Mr. Begum a copy was given to him. WBC 8.3, hemoglobin 14.9, platelets 213,000, ANC is 5550. Potassium 3.5 random glucose 92 creatinine 0.2 his LFTs are normal his last TSH was reported on October 01, 2020 and 1.74. C. The pathology report from 09/29/2020 urinary bladder right lateral posterior for wall) biopsy reports fragments of bladder stroma with chronic inflammation. Kaylynn drips of benign urothelial cells identified. No evidence of high-grade urothelial cancer. Follow-up plan A. He will have follow-up in 3 weeks with CBC CMP and TSH for immunotherapy monitoring. B. Mr. Begum was instructed to contact us in the interim should questions or problems arise. Signed By: Kassi Perdomo-, [facility] Bambi Bermudez MD <<Signature on File>>
== END 2020-10-22 23:59 | disposition home or self-care (01) ==
LOC: ONCMED 05:46
PROVIDERS: Internal Medicine Hematology & Oncology; PCP Family Medicine; Visit Provider Nurse Practitioner
DX: Z51.12 Encounter for antineoplastic immunotherapy (principal); C67.0 Malignant neoplasm of trigone of bladder; D46.4 Refractory anemia, unspecified; Z79.899 Other long term (current) drug therapy
CPT/HCPCS: 36415; 80053; 84443; 85025; 96413; 99214; 99215; J7050; J9271

== ENCOUNTER 2020-11-12 06:03 | Outpatient (RCR) | payer MEDICARE, OTHER, SELFPAY ==
[2020-11-12 09:35] LABS: Basophils # 0.1 10^3/uL (0.0-0.1); Basophils % 0.9 %; Eosinophils # 0.3 10^3/uL (0.0-0.8); Eosinophils % 4.5 %; Hematocrit 44.9 % (42.0-52.0); Lymphocytes # 1.3 10^3/uL (0.8-4.8); Lymphocytes % 20.2 %; Mean Corpuscular HGB Conc 33.4 g/dL (30.0-36.0); Mean Corpuscular Hemoglobin 28.7 pg (28.0-34.0); Mean Corpuscular Volume 85.9 fL (80-94); Mean Platelet Volume 10.9 fL (7.4-10.4); Monocytes # 0.7 10^3/uL (0.2-0.9); Monocytes % 10.3 %; Neutrophils # 4.08 10^3/uL (1.8-7.7); Neutrophils % 63.6 %; Nucleated Red Blood Cells % 0 %; Platelet Count 221 10^3/cmm (130-400); Red Blood Count 5.23 10^6/uL (4.1-5.3); Red Cell Distribution Width 13.7 % (12.1-15.1); White Blood Count 6.4 10^3/uL (4.0-10.0)
[2020-11-12 10:17] LABS: Alanine Aminotransferase 16 U/L (0-41); Albumin Level 3.8 g/dL (3.5-5.2); Alkaline Phosphatase 68 IU/L (40-130); Anion Gap 13.7 (5-19); Aspartate Amino Transferase 20 U/L (0-40); Blood Urea Nitrogen 21 mg/dL (8-23); Calcium 8.7 mg/dL (8.5-10.5); Carbon Dioxide 29 mmol/L (22-29); Chloride 103 mmol/L (98-107); Globulin 2.9 g/dL (1.3-4.6); Glucose 102 mg/dL (65-115); Osmolality Calculated 297 mOsm/kg (285-295); Potassium 3.7 mmol/L (3.5-5.1); Sodium 142 mmol/L (136-145); Thyroid Stimulating Hormone 1.41 uIU/mL (0.27-4.20); Total Bilirubin 0.4 mg/dL (0.15-1.2); Total Protein 6.7 g/dL (6.6-8.7)
[2020-11-12] MEDS: sodium chloride 0.9% 250 ML 125 ML IV (12:03)
--- NOTE | 2020-11-12 15:26 | ONC FU_ITS ---
Dr. Bermudez follow up note Patient: Farhad Begum Unit #: [id number]: 1945 Dicatated By: Bambi Bermudez M.D.Date of Visit:Nov 12, 2020 Onc Med Follow-up/Prog Note History of Present Illness: Mr. 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 Carcinoma invades into lamina propria, no muscularis propria present for evaluation eg pT1 Left lateral bladder wall lesion was also biopsied and it showed reactive atypical urothelium in the background of abundant admitted this polypoid granulation tissue no malignancy identified no dysplasia seen. Biopsy from bladder, left trigone shows carcinoma in situ no invasive malignancy seen. 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 He presented for follow-up on September 02 with a rash on his forearms and hands at that time. It was opted to hold his Keytruda and have him return in 2 weeks. After 2 weeks, his rash was better but had not resolved-it was not particularly itchy it was just there. Mr Begum was referred to dermatology with Dr. Diaz, whom he saw on October 29, 2019. Per Dr Diaz's impression, the rash did not appear to be drug related and immunotherapy could be resumed. Patient was given TAC cream. His immunotherapy was on hold from August 14, 2019 until April 23, 2020 Mr Begum had immunotherapy on August 14, 2019 and then his treatment was placed on hold due to the rash. He had repeat bladder biopsy per Dr Gonzalez on 01/24/2020. There were four biopsies reported by pathology with no in situ carcinoma or invasive cancer identified in 3/4 of the specimes. 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 No invasive carcinoma identified . Case was discussed with Dr. Gonzalez , he reported the follow-up cystoscopy showed huge improvement with some area of patchy erythema but they are much smaller and less suspicious. There was one area that was more typical for residual CIS but is very small on the right lateral wall. With that dicussion, it was decided to continue with immunotherapy and follow-up with cystoscopy. Mr Begum resumed every 3 week Keytruda on April 23, 2020. He has tolerated it well. Mr. Begum continues on the immunotherapy with the pembrolizumab/Keytruda. He continues to tolerate it well. Follow-up cystoscopy done on September 29, 2020 showed some erythematous changes in the posterior right lateral wall, appeared to be better than they had previously. Same area where he did have small amount of CIS, patient underwent biopsy of right lateral posterior floor wall and it showed fragments of bladder stroma with chronic inflammation. Rare strips of benign urothelial cells identified. No evidence of high-grade urothelial carcinoma. Came for follow-up, denies any specific complaints, no fever chills, no nausea or vomiting, no diarrhea or constipation, no melena or hematochezia, no new skin rash, no shortness of breath, no jaundice, no hematuria, tolerating Keytruda every 3 weeks well Medications: Cefuroxime Axetil 1 Tablet (of 500 mg) Oral b.i.d., DHS Zinc Shampoo Topical PRN, Potassium Chloride Mile ER 3 Tablet (of 10 meq) Tablet, controlled release Oral b.i.d., Procardia XL 1 Tablet (of 60 mg) Tablet SR 24 HR Oral b.i.d., Sulfacetamide Sodium Cream Topical PRN, Tamsulosin HCl 2 Capsule (of 0.4 mg) Oral at bedtime, Triamterene-HCTZ 1 Capsule (of 37.5-25 mg) Oral b.i.d., ZyrTEC Allergy 1 Capsule (of 10 mg) Oral daily PRN Allergies: No Known Allergies. Review of Systems: Review of Systems is not available for this patient. Vital Signs: Performed on Nov 12, 2020 10:50 Height - 72.00 in Weight - 202.6 lbs (HIGH) BSA - 2.14 sq.m BMI - 27.48 Temperature - 97.6 F (LOW) Pulse - 68 /min Respiration - 18 /min BP - 133/69 mm(hg) O2 Sat - 98 % Pain - 0 Fatigue - 0 Performance Status: 0 - Fully active, able to carry on all predisease activities without restrictions. (ECOG) Physical Examination: ENMT - Mouth sores, no thrush, no jaundice, Respiratory - Lungs are clear to auscultation, Cardiovascular - Regular rate and rhythm of heart, Abdomen - Soft, bowel sounds present, Extremities - No visible edema. Lab/Imaging: Test performed on Oct 22, 2020 12:49 Sodium 136 mmol/L TSH 0.94 uIU/mL Potassium 3.5 mmol/L Chloride 101 mmol/L CO2 27 mmol/L Anion Gap 11.5 BUN 22 mg/dL Creatinine 0.6 mg/dL Cr Clearance (Est) 130.71 mL/min Glucose 92 mg/dL Osmolality - Calculated 285 mOsm/kg Calcium 8.9 mg/dL Protein, Total 7.0 g/dL Albumin 4.0 g/dL Globulin 3.0 g/dL Bilirubin, Total 0.6 mg/dL ALT (SGPT) 13 U/L AST (SGOT) 19 U/L Alkaline Phosphatase 65 IU/L WBC 8.3 10 3/uL RBC 5.31 10 6/uL HGB 14.9 g/dL HCT 44.3 % MCV 83.4 fL MCH 28.1 pg MCHC 33.6 g/dL RDW 13.3 % Platelet Count 213 10 3/cmm MPV 11.2 fL Neutrophils 5.55 10 3/uL Lymphocytes 1.5 10 3/uL Monocytes 0.7 10 3/uL Eosinophils 0.4 10 3/uL Basophils 0.1 10 3/uL Neutrophil % 67.3 % Lymphocyte % 18.2 % Monocyte % 8.7 % Eosinophil % 4.6 % Basophils % 1.0 % NRBC % 0 % Test performed on Jun 03, 2020 08:50 CBC Slide Review Slide Review Perform SLIDE REVIEW AGREES WITH AUTOMATED RESULTS ST Impression: Papillary urothelial carcinoma, high-grade, involving anterior urinary bladder wall, per TURBT done on 05/14/2019, final pathology report showed carcinoma invades into lamina propria, no muscularis propria present for evaluation pT1 Status post intravesical therapy with BCG now 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 Started on 3 weekly Keytruda on 07/24/2019. His Keytruda is currently on hold due to maculopapular rash on forearms and hands. His last dose was 08/14/2019. in November 2019, discussed with patient regarding his question concern, his skin rash involving bilateral upper extremities almost resolved now with mild erythema,, the last dose of Keytruda was given in 08/12 he was told rash could not be due to immunotherapy.Patient underwent follow-up cystoscopy which showed huge improvement with immunotherapy Restarted on Keytruda on April 23, 2020 Follow-up cystoscopy done on September 29, 2020 showed some erythematous changes in the posterior right lateral wall, appears to be better than they had previously. Same area where he did have small amount of CIS, biopsy was obtained which showed fragments of bladder stroma with chronic inflammation, no evidence of high-grade urothelial carcinoma. Plan: Discussed with patient regarding his labs white blood count 6.4 hemoglobin 15 hematocrit 44.9 platelets 221,000 CMP within normal limits TSH 1.41 and recently done follow-up cystoscopy and biopsy report which shows no evidence of urothelial carcinoma but chronic inflammation Clinically, patient is doing well with no new signs symptom, tolerating maintenance dose with 3 weekly Keytruda well, will proceed with next dose today and then he will return to clinic in 4 weeks with CBC CMP and instead of 3 weeks as patient is going out of town for fishing/camping so wants to take extra week off. Signed By: Bambi Bermudez M.D. <<Signature on File>>
== END 2020-11-22 23:59 | disposition home or self-care (01) ==
LOC: ONCMED 06:03
PROVIDERS: PCP Family Medicine; Visit Provider Internal Medicine Hematology & Oncology
DX: Z51.12 Encounter for antineoplastic immunotherapy (principal); C67.0 Malignant neoplasm of trigone of bladder; N40.0 Benign prostatic hyperplasia without lower urinary tract symptoms; I10 Essential (primary) hypertension; Z79.899 Other long term (current) drug therapy
CPT/HCPCS: 80053; 84443; 85025; 96413; 99215; J7050; J9271

== ENCOUNTER 2020-12-09 05:55 | Outpatient (RCR) | payer MEDICARE, OTHER, SELFPAY ==
[2020-12-09 13:51] LABS: Basophils # 0.1 10^3/uL (0.0-0.1); Basophils % 0.9 %; Eosinophils # 0.1 10^3/uL (0.0-0.8); Eosinophils % 1.6 %; Hematocrit 43.2 % (42.0-52.0); Hemoglobin 14.7 g/dL (11.7-16.6); Lymphocytes # 1.6 10^3/uL (0.8-4.8); Lymphocytes % 21.2 %; Mean Corpuscular Hemoglobin 28.6 pg (28.0-34.0); Mean Platelet Volume 11.1 fL (7.4-10.4); Monocytes # 0.6 10^3/uL (0.2-0.9); Monocytes % 7.2 %; Neutrophils # 5.26 10^3/uL (1.8-7.7); Neutrophils % 68.7 %; Nucleated Red Blood Cells % 0 %; Platelet Count 221 10^3/cmm (130-400); Red Blood Count 5.14 10^6/uL (4.1-5.3); Red Cell Distribution Width 13.5 % (12.1-15.1); White Blood Count 7.7 10^3/uL (4.0-10.0)
[2020-12-09 14:19] LABS: Alanine Aminotransferase 14 U/L (0-41); Alkaline Phosphatase 66 IU/L (40-130); Anion Gap 14.3 (5-19); Aspartate Amino Transferase 21 U/L (0-40); Blood Urea Nitrogen 16 mg/dL (8-23); Carbon Dioxide 27 mmol/L (22-29); Chloride 99 mmol/L (98-107); Globulin 2.7 g/dL (1.3-4.6); Glucose 109 mg/dL (65-115); Osmolality Calculated 286 mOsm/kg (285-295); Potassium 3.3 mmol/L (3.5-5.1); Sodium 137 mmol/L (136-145); Total Bilirubin 0.6 mg/dL (0.15-1.2); Total Protein 6.7 g/dL (6.6-8.7)
--- NOTE | 2020-12-09 15:08 | ONC FU_ITS ---
Dr. Bermudez follow up note Patient: Farhad Begum Unit #: [id number]: 1945 Dicatated By: Bambi Bermudez M.D.Date of Visit:Dec 09, 2020 Onc Med Follow-up/Prog Note History of Present Illness: Mr. 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 Carcinoma invades into lamina propria, no muscularis propria present for evaluation eg pT1 Left lateral bladder wall lesion was also biopsied and it showed reactive atypical urothelium in the background of abundant admitted this polypoid granulation tissue no malignancy identified no dysplasia seen. Biopsy from bladder, left trigone shows carcinoma in situ no invasive malignancy seen. 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 He presented for follow-up on September 02 with a rash on his forearms and hands at that time. It was opted to hold his Keytruda and have him return in 2 weeks. After 2 weeks, his rash was better but had not resolved-it was not particularly itchy it was just there. Mr Begum was referred to dermatology with Dr. Diaz, whom he saw on October 29, 2019. Per Dr Diaz's impression, the rash did not appear to be drug related and immunotherapy could be resumed. Patient was given TAC cream. His immunotherapy was on hold from August 14, 2019 until April 23, 2020 Mr Begum had immunotherapy on August 14, 2019 and then his treatment was placed on hold due to the rash. He had repeat bladder biopsy per Dr Gonzalez on 01/24/2020. There were four biopsies reported by pathology with no in situ carcinoma or invasive cancer identified in 3/4 of the specimes. 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 No invasive carcinoma identified . Case was discussed with Dr. Gonzalez , he reported the follow-up cystoscopy showed huge improvement with some area of patchy erythema but they are much smaller and less suspicious. There was one area that was more typical for residual CIS but is very small on the right lateral wall. With that dicussion, it was decided to continue with immunotherapy and follow-up with cystoscopy. Mr Begum resumed every 3 week Keytruda on April 23, 2020. He has tolerated it well. Mr. Begum continues on the immunotherapy with the pembrolizumab/Keytruda. He continues to tolerate it well. Follow-up cystoscopy done on September 29, 2020 showed some erythematous changes in the posterior right lateral wall, appeared to be better than they had previously. Same area where he did have small amount of CIS, patient underwent biopsy of right lateral posterior floor wall and it showed fragments of bladder stroma with chronic inflammation. Rare strips of benign urothelial cells identified. No evidence of high-grade urothelial carcinoma. Came for follow-up, denies any specific complaints, no fever chills, no nausea or vomiting, no diarrhea or constipation, no skin rash, no shortness of breath, no jaundice, no hematuria or dysuria, tolerating 3 weekly Keytruda well Medications: Cefuroxime Axetil 1 Tablet (of 500 mg) Oral b.i.d., DHS Zinc Shampoo Topical PRN, Potassium Chloride Mile ER 3 Tablet (of 10 meq) Tablet, controlled release Oral b.i.d., Procardia XL 1 Tablet (of 60 mg) Tablet SR 24 HR Oral b.i.d., Sulfacetamide Sodium Cream Topical PRN, Tamsulosin HCl 2 Capsule (of 0.4 mg) Oral at bedtime, Triamterene-HCTZ 1 Capsule (of 37.5-25 mg) Oral b.i.d., ZyrTEC Allergy 1 Capsule (of 10 mg) Oral daily PRN Allergies: No Known Allergies. Review of Systems: Review of Systems is not available for this patient. Vital Signs: Performed on Dec 09, 2020 14:35 Height - 72.00 in Weight - 195.2 lbs (LOW) BSA - 2.11 sq.m BMI - 26.47 Temperature - 97.0 F (LOW) Pulse - 67 /min Respiration - 18 /min BP - 135/69 mm(hg) O2 Sat - 96 % Pain - 0 Performance Status: 0 - Fully active, able to carry on all predisease activities without restrictions. (ECOG) Physical Examination: ENMT - No mouth sores, no thrush, no jaundice, Respiratory - Lungs are clear to auscultation, Cardiovascular - Regular rate and rhythm of heart, Abdomen - Soft, bowel sounds present, Extremities - No visible edema. Lab/Imaging: Test performed on Oct 22, 2020 12:49 Sodium 136 mmol/L TSH 0.94 uIU/mL Potassium 3.5 mmol/L Chloride 101 mmol/L CO2 27 mmol/L Anion Gap 11.5 BUN 22 mg/dL Creatinine 0.6 mg/dL Cr Clearance (Est) 130.71 mL/min Glucose 92 mg/dL Osmolality - Calculated 285 mOsm/kg Calcium 8.9 mg/dL Protein, Total 7.0 g/dL Albumin 4.0 g/dL Globulin 3.0 g/dL Bilirubin, Total 0.6 mg/dL ALT (SGPT) 13 U/L AST (SGOT) 19 U/L Alkaline Phosphatase 65 IU/L WBC 8.3 10 3/uL RBC 5.31 10 6/uL HGB 14.9 g/dL HCT 44.3 % MCV 83.4 fL MCH 28.1 pg MCHC 33.6 g/dL RDW 13.3 % Platelet Count 213 10 3/cmm MPV 11.2 fL Neutrophils 5.55 10 3/uL Lymphocytes 1.5 10 3/uL Monocytes 0.7 10 3/uL Eosinophils 0.4 10 3/uL Basophils 0.1 10 3/uL Neutrophil % 67.3 % Lymphocyte % 18.2 % Monocyte % 8.7 % Eosinophil % 4.6 % Basophils % 1.0 % NRBC % 0 % Impression: Papillary urothelial carcinoma, high-grade, involving anterior urinary bladder wall, per TURBT done on 05/14/2019, final pathology report showed carcinoma invades into lamina propria, no muscularis propria present for evaluation pT1 Status post intravesical therapy with BCG now 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 Started on 3 weekly Keytruda on 07/24/2019. His Keytruda is currently on hold due to maculopapular rash on forearms and hands. His last dose was 08/14/2019. in November 2019, discussed with patient regarding his question concern, his skin rash involving bilateral upper extremities almost resolved now with mild erythema,, the last dose of Keytruda was given in 08/12 he was told rash could not be due to immunotherapy.Patient underwent follow-up cystoscopy which showed huge improvement with immunotherapy Restarted on Keytruda on April 23, 2020 Follow-up cystoscopy done on September 29, 2020 showed some erythematous changes in the posterior right lateral wall, appears to be better than they had previously. Same area where he did have small amount of CIS, biopsy was obtained which showed fragments of bladder stroma with chronic inflammation, no evidence of high-grade urothelial carcinoma. Plan: Discussed with patient regarding his labs white blood count 7.7 hemoglobin 14.7 hematocrit 43.2 platelets 221,000 CMP within normal limit except potassium 3.3 Clinically, patient doing well with no new signs symptom, tolerating 3 weekly Keytruda well, will proceed with next dose and then he will return to clinic in 3 weeks with CBC CMP As far as mild hypokalemia is concerned, patient is already on potassium supplement 30 mEq p.o. twice a day, will increase his dose to 40 mEq twice a day for 3 days then back to 30 mEq p.o. twice a day and will also check his magnesium level if it is low will consider supplement. I will monitor his potassium level. Signed By: Babmi Bermudez M.D. <<Signature on File>>
[2020-12-09 20:31] LABS: Magnesium 1.6 mg/dL (1.7-2.3)
== END 2020-12-23 23:59 | disposition home or self-care (01) ==
LOC: ONCMED 05:55
PROVIDERS: PCP Family Medicine; Visit Provider Internal Medicine Hematology & Oncology
DX: Z51.12 Encounter for antineoplastic immunotherapy (principal); C67.3 Malignant neoplasm of anterior wall of bladder; L27.1 Localized skin eruption due to drugs and medicaments taken internally; T45.1X5D Adverse effect of antineoplastic and immunosuppressive drugs, subsequent encounter; E87.6 Hypokalemia; N30.90 Cystitis, unspecified without hematuria; Z79.899 Other long term (current) drug therapy
CPT/HCPCS: 80053; 83735; 85025; 96413; 99215; J7050; J9271

== ENCOUNTER → 2021-01-12 09:13 | Outpatient (BNVA) | payer MEDICARE, OTHER, SELFPAY | PROVIDERS: PCP Family Medicine; Visit Provider Urology | DX: C67.8 Malignant neoplasm of overlapping sites of bladder (principal) | CPT/HCPCS: 81003 ==

== ENCOUNTER → 2021-01-15 09:18 | Outpatient (BNVA) | payer MEDICARE, OTHER, SELFPAY | PROVIDERS: PCP Family Medicine; Visit Provider Family Medicine | DX: C67.8 Malignant neoplasm of overlapping sites of bladder (principal) | CPT/HCPCS: 87635 ==

== ENCOUNTER 2021-01-20 06:28 | Outpatient (RCR) | payer MEDICARE, OTHER, SELFPAY ==
[2020-12-31 09:03] LABS: Basophils # 0.1 10^3/uL (0.0-0.1); Basophils % 0.8 %; Eosinophils # 0.3 10^3/uL (0.0-0.8); Eosinophils % 3.6 %; Hematocrit 42.7 % (42.0-52.0); Hemoglobin 14.5 g/dL (11.7-16.6); Lymphocytes # 1.1 10^3/uL (0.8-4.8); Lymphocytes % 14.4 %; Mean Corpuscular Hemoglobin 29.2 pg (28.0-34.0); Mean Corpuscular Volume 85.9 fl (80-94); Mean Platelet Volume 11.1 fL (7.4-10.4); Monocytes # 0.6 10^3/uL (0.2-0.9); Neutrophils # 5.65 10^3/uL (1.8-7.7); Neutrophils % 72.7 %; Nucleated Red Blood Cells % 0 %; Platelet Count 214 10^3/cmm (130-400); Red Blood Count 4.97 10^6/uL (4.1-5.3); Red Cell Distribution Width 13.6 % (12.1-15.1); White Blood Count 7.8 10^3/uL (4.0-10.0)
[2020-12-31 09:37] LABS: Alanine Aminotransferase 16 U/L (0-41); Albumin Level 3.7 g/dL (3.5-5.2); Alkaline Phosphatase 66 IU/L (40-130); Anion Gap 14.7 (5-19); Aspartate Amino Transferase 23 U/L (0-40); Blood Urea Nitrogen 20 mg/dL (8-23); Calcium 8.8 mg/dL (8.5-10.5); Carbon Dioxide 28 mmol/L (22-29); Chloride 101 mmol/L (98-107); Glucose 118 mg/dL (65-115); Osmolality Calculated 294 mOsm/kg (285-295); Potassium 3.7 mmol/L (3.5-5.1); Sodium 140 mmol/L (136-145); Total Bilirubin 0.4 mg/dL (0.15-1.2); Total Protein 6.7 g/dL (6.6-8.7)
--- NOTE | 2020-12-31 15:53 | ONC FU_ITS ---
Dr. Bermudez follow up note Patient: Farhad Begum Unit #: [id number]: 1945 Dicatated By: Bambi Bermudez M.D.Date of Visit:Dec 31, 2020 Onc Med Follow-up/Prog Note History of Present Illness: Mr. 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 Carcinoma invades into lamina propria, no muscularis propria present for evaluation eg pT1 Left lateral bladder wall lesion was also biopsied and it showed reactive atypical urothelium in the background of abundant admitted this polypoid granulation tissue no malignancy identified no dysplasia seen. Biopsy from bladder, left trigone shows carcinoma in situ no invasive malignancy seen. 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 He presented for follow-up on September 02 with a rash on his forearms and hands at that time. It was opted to hold his Keytruda and have him return in 2 weeks. After 2 weeks, his rash was better but had not resolved-it was not particularly itchy it was just there. Mr Begum was referred to dermatology with Dr. Diaz, whom he saw on October 29, 2019. Per Dr Diaz's impression, the rash did not appear to be drug related and immunotherapy could be resumed. Patient was given TAC cream. His immunotherapy was on hold from August 14, 2019 until April 23, 2020 Mr Begum had immunotherapy on August 14, 2019 and then his treatment was placed on hold due to the rash. He had repeat bladder biopsy per Dr Gonzalez on 01/24/2020. There were four biopsies reported by pathology with no in situ carcinoma or invasive cancer identified in 3/4 of the specimes. 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 No invasive carcinoma identified . Case was discussed with Dr. Gonzalez , he reported the follow-up cystoscopy showed huge improvement with some area of patchy erythema but they are much smaller and less suspicious. There was one area that was more typical for residual CIS but is very small on the right lateral wall. With that dicussion, it was decided to continue with immunotherapy and follow-up with cystoscopy. Mr Begum resumed every 3 week Keytruda on April 23, 2020. He has tolerated it well. Mr. Begum continues on the immunotherapy with the pembrolizumab/Keytruda. He continues to tolerate it well. Follow-up cystoscopy done on September 29, 2020 showed some erythematous changes in the posterior right lateral wall, appeared to be better than they had previously. Same area where he did have small amount of CIS, patient underwent biopsy of right lateral posterior floor wall and it showed fragments of bladder stroma with chronic inflammation. Rare strips of benign urothelial cells identified. No evidence of high-grade urothelial carcinoma. Came for follow-up, denies any specific complaints, no fever chills, no nausea or vomiting, no diarrhea constipation, no skin rash, no shortness of breath, no jaundice, no mucus in the stool, no hematuria, tolerating 3 weekly Keytruda well otherwise Medications: Cefuroxime Axetil 1 Tablet (of 500 mg) Oral b.i.d., DHS Zinc Shampoo Topical PRN, Potassium Chloride Mile ER 3 Tablet (of 10 meq) Tablet, controlled release Oral b.i.d., Procardia XL 1 Tablet (of 60 mg) Tablet SR 24 HR Oral b.i.d., Sulfacetamide Sodium Cream Topical PRN, Tamsulosin HCl 2 Capsule (of 0.4 mg) Oral at bedtime, Triamterene-HCTZ 1 Capsule (of 37.5-25 mg) Oral b.i.d., ZyrTEC Allergy 1 Capsule (of 10 mg) Oral daily PRN Allergies: No Known Allergies. Review of Systems: Review of Systems is not available for this patient. Vital Signs: Performed on Dec 31, 2020 15:12 Height - 72.00 in Weight - 201.6 lbs (HIGH) BSA - 2.14 sq.m BMI - 27.34 Temperature - 97.2 F (LOW) Pulse - 66 /min Respiration - 18 /min BP - 143/67 mm(hg) (HIGH) O2 Sat - 97 % Pain - 0 Fatigue - 9 Performance Status: 0 - Fully active, able to carry on all predisease activities without restrictions. (ECOG) Physical Examination: ENMT - No mouth sores no thrush no jaundice, Respiratory - Lungs are clear to auscultation, Cardiovascular - Regular rate and rhythm of heart, Abdomen - Soft bowel sounds present, Extremities - No visible edema. Lab/Imaging: Test performed on Oct 22, 2020 12:49 Sodium 136 mmol/L TSH 0.94 uIU/mL Potassium 3.5 mmol/L Chloride 101 mmol/L CO2 27 mmol/L Anion Gap 11.5 BUN 22 mg/dL Creatinine 0.6 mg/dL Cr Clearance (Est) 130.71 mL/min Glucose 92 mg/dL Osmolality - Calculated 285 mOsm/kg Calcium 8.9 mg/dL Protein, Total 7.0 g/dL Albumin 4.0 g/dL Globulin 3.0 g/dL Bilirubin, Total 0.6 mg/dL ALT (SGPT) 13 U/L AST (SGOT) 19 U/L Alkaline Phosphatase 65 IU/L WBC 8.3 10 3/uL RBC 5.31 10 6/uL HGB 14.9 g/dL HCT 44.3 % MCV 83.4 fL MCH 28.1 pg MCHC 33.6 g/dL RDW 13.3 % Platelet Count 213 10 3/cmm MPV 11.2 fL Neutrophils 5.55 10 3/uL Lymphocytes 1.5 10 3/uL Monocytes 0.7 10 3/uL Eosinophils 0.4 10 3/uL Basophils 0.1 10 3/uL Neutrophil % 67.3 % Lymphocyte % 18.2 % Monocyte % 8.7 % Eosinophil % 4.6 % Basophils % 1.0 % NRBC % 0 % Impression: Papillary urothelial carcinoma, high-grade, involving anterior urinary bladder wall, per TURBT done on 05/14/2019, final pathology report showed carcinoma invades into lamina propria, no muscularis propria present for evaluation pT1 Status post intravesical therapy with BCG now 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 Started on 3 weekly Keytruda on 07/24/2019. His Keytruda is currently on hold due to maculopapular rash on forearms and hands. His last dose was 08/14/2019. in November 2019, discussed with patient regarding his question concern, his skin rash involving bilateral upper extremities almost resolved now with mild erythema,, the last dose of Keytruda was given in 08/12 he was told rash could not be due to immunotherapy.Patient underwent follow-up cystoscopy which showed huge improvement with immunotherapy Restarted on Keytruda on April 23, 2020 Follow-up cystoscopy done on September 29, 2020 showed some erythematous changes in the posterior right lateral wall, appears to be better than they had previously. Same area where he did have small amount of CIS, biopsy was obtained which showed fragments of bladder stroma with chronic inflammation, no evidence of high-grade urothelial carcinoma. Plan: Discussed with patient regarding his labs white blood count 7.8 hemoglobin 14.5 hematocrit 42.7 platelets 214,000 CMP within normal limits Clinically, patient doing well with no new signs symptom, tolerating 3 weekly Keytruda well, will proceed with the next dose today and then he will return to clinic in 3 weeks with CBC CMP, patient is following his urologist on a regular basis. Signed By: Bambi Bermudez M.D. <<Signature on File>>
[2021-01-20 08:53] LABS: Basophils # 0.1 10^3/uL (0.0-0.1); Basophils % 0.9 %; Eosinophils # 0.2 10^3/uL (0.0-0.8); Eosinophils % 2.9 %; Hematocrit 42.9 % (42.0-52.0); Hemoglobin 14.3 g/dL (11.7-16.6); Lymphocytes # 1.1 10^3/uL (0.8-4.8); Lymphocytes % 14.9 %; Mean Corpuscular HGB Conc 33.3 g/dL (30.0-36.0); Mean Corpuscular Hemoglobin 29.4 pg (28.0-34.0); Mean Corpuscular Volume 88.1 fl (80-94); Mean Platelet Volume 11.2 fL (7.4-10.4); Monocytes # 0.7 10^3/uL (0.2-0.9); Monocytes % 9.3 %; Neutrophils # 5.38 10^3/uL (1.8-7.7); Neutrophils % 71.6 %; Nucleated Red Blood Cells % 0 %; Platelet Count 213 10^3/cmm (130-400); Red Blood Count 4.87 10^6/uL (4.1-5.3); Red Cell Distribution Width 13.4 % (12.1-15.1); White Blood Count 7.5 10^3/uL (4.0-10.0)
[2021-01-20 09:14] LABS: Alanine Aminotransferase 14 U/L (0-41); Alkaline Phosphatase 71 IU/L (40-130); Anion Gap 12.6 (5-19); Aspartate Amino Transferase 24 U/L (0-40); Blood Urea Nitrogen 21 mg/dL (8-23); Calcium 9.1 mg/dL (8.5-10.5); Carbon Dioxide 29 mmol/L (22-29); Chloride 101 mmol/L (98-107); Glucose 136 mg/dL (65-115); Osmolality Calculated 293 mOsm/kg (285-295); Potassium 3.6 mmol/L (3.5-5.1); Sodium 139 mmol/L (136-145); Thyroid Stimulating Hormone 1.37 uIU/mL (0.27-4.20); Total Bilirubin 0.4 mg/dL (0.15-1.2)
--- NOTE | 2021-01-20 09:47 | ONC FU_ITS ---
Dr. Bermudez follow up note Patient: Farhad Begum Unit #: [id number]: 1945 Dicatated By: Bambi Bermudez M.D.Date of Visit:Jan 20, 2021 Onc Med Follow-up/Prog Note History of Present Illness: Mr. 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 Carcinoma invades into lamina propria, no muscularis propria present for evaluation eg pT1 Left lateral bladder wall lesion was also biopsied and it showed reactive atypical urothelium in the background of abundant admitted this polypoid granulation tissue no malignancy identified no dysplasia seen. Biopsy from bladder, left trigone shows carcinoma in situ no invasive malignancy seen. 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 He presented for follow-up on September 02 with a rash on his forearms and hands at that time. It was opted to hold his Keytruda and have him return in 2 weeks. After 2 weeks, his rash was better but had not resolved-it was not particularly itchy it was just there. Mr Begum was referred to dermatology with Dr. Diaz, whom he saw on October 29, 2019. Per Dr Diaz's impression, the rash did not appear to be drug related and immunotherapy could be resumed. Patient was given TAC cream. His immunotherapy was on hold from August 14, 2019 until April 23, 2020 Mr Begum had immunotherapy on August 14, 2019 and then his treatment was placed on hold due to the rash. He had repeat bladder biopsy per Dr Gonzalez on 01/24/2020. There were four biopsies reported by pathology with no in situ carcinoma or invasive cancer identified in 3/4 of the specimes. 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 No invasive carcinoma identified . Case was discussed with Dr. Gonzalez , he reported the follow-up cystoscopy showed huge improvement with some area of patchy erythema but they are much smaller and less suspicious. There was one area that was more typical for residual CIS but is very small on the right lateral wall. With that dicussion, it was decided to continue with immunotherapy and follow-up with cystoscopy. Mr Begum resumed every 3 week Keytruda on April 23, 2020. He has tolerated it well. Mr. Begum continues on the immunotherapy with the pembrolizumab/Keytruda. He continues to tolerate it well. Follow-up cystoscopy done on September 29, 2020 showed some erythematous changes in the posterior right lateral wall, appeared to be better than they had previously. Same area where he did have small amount of CIS, patient underwent biopsy of right lateral posterior floor wall and it showed fragments of bladder stroma with chronic inflammation. Rare strips of benign urothelial cells identified. No evidence of high-grade urothelial carcinoma. Came for follow-up, denies any specific complaints, no fever chills, no nausea or vomiting, no diarrhea constipation, no hematuria or dysuria, no pelvic pain, no skin rash, no shortness of breath, no melena or hematochezia. Tolerating three weekly Keytruda well otherwise, as per patient he is scheduled for follow-up cystoscopy next week Medications: Cefuroxime Axetil 1 Tablet (of 500 mg) Oral b.i.d., DHS Zinc Shampoo Topical PRN, Potassium Chloride Mile ER 3 Tablet (of 10 meq) Tablet, controlled release Oral b.i.d., Procardia XL 1 Tablet (of 60 mg) Tablet SR 24 HR Oral b.i.d., Sulfacetamide Sodium Cream Topical PRN, Tamsulosin HCl 2 Capsule (of 0.4 mg) Oral at bedtime, Triamterene-HCTZ 1 Capsule (of 37.5-25 mg) Oral b.i.d., ZyrTEC Allergy 1 Capsule (of 10 mg) Oral daily PRN Allergies: No Known Allergies. Review of Systems: Review of Systems is not available for this patient. Vital Signs: Performed on Jan 20, 2021 08:15 Height - 72.00 in Weight - 199.8 lbs (LOW) BSA - 2.13 sq.m BMI - 27.10 Temperature - 99.1 F (HIGH) Pulse - 59 /min (LOW) Respiration - 18 /min BP - 119/55 mm(hg) O2 Sat - 95 % (LOW) Pain - 0 Fatigue - 0 Performance Status: 0 - Fully active, able to carry on all predisease activities without restrictions. (ECOG) Physical Examination: ENMT - No mouth sores, no thrush, no jaundice, Respiratory - Lungs are clear to auscultation, Cardiovascular - Regular rate and rhythm of heart, Abdomen - Soft, bowel sounds present, Extremities - No Visible edema. Lab/Imaging: Test performed on Oct 22, 2020 12:49 Sodium 136 mmol/L TSH 0.94 uIU/mL Potassium 3.5 mmol/L Chloride 101 mmol/L CO2 27 mmol/L Anion Gap 11.5 BUN 22 mg/dL Creatinine 0.6 mg/dL Cr Clearance (Est) 130.71 mL/min Glucose 92 mg/dL Osmolality - Calculated 285 mOsm/kg Calcium 8.9 mg/dL Protein, Total 7.0 g/dL Albumin 4.0 g/dL Globulin 3.0 g/dL Bilirubin, Total 0.6 mg/dL ALT (SGPT) 13 U/L AST (SGOT) 19 U/L Alkaline Phosphatase 65 IU/L WBC 8.3 10 3/uL RBC 5.31 10 6/uL HGB 14.9 g/dL HCT 44.3 % MCV 83.4 fL MCH 28.1 pg MCHC 33.6 g/dL RDW 13.3 % Platelet Count 213 10 3/cmm MPV 11.2 fL Neutrophils 5.55 10 3/uL Lymphocytes 1.5 10 3/uL Monocytes 0.7 10 3/uL Eosinophils 0.4 10 3/uL Basophils 0.1 10 3/uL Neutrophil % 67.3 % Lymphocyte % 18.2 % Monocyte % 8.7 % Eosinophil % 4.6 % Basophils % 1.0 % NRBC % 0 % Impression: Papillary urothelial carcinoma, high-grade, involving anterior urinary bladder wall, per TURBT done on 05/14/2019, final pathology report showed carcinoma invades into lamina propria, no muscularis propria present for evaluation pT1 Status post intravesical therapy with BCG now 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 Started on 3 weekly Keytruda on 07/24/2019. His Keytruda is currently on hold due to maculopapular rash on forearms and hands. His last dose was 08/14/2019. in November 2019, discussed with patient regarding his question concern, his skin rash involving bilateral upper extremities almost resolved now with mild erythema,, the last dose of Keytruda was given in 08/12 he was told rash could not be due to immunotherapy.Patient underwent follow-up cystoscopy which showed huge improvement with immunotherapy Restarted on Keytruda on April 23, 2020 Follow-up cystoscopy done on September 29, 2020 showed some erythematous changes in the posterior right lateral wall, appears to be better than they had previously. Same area where he did have small amount of CIS, biopsy was obtained which showed fragments of bladder stroma with chronic inflammation, no evidence of high-grade urothelial carcinoma. Plan: Discussed with patient regarding his labs white blood count 7.5 hemoglobin 14.3 hematocrit 42.9 platelets 213,000 CMP within normal limits TSH 1.37 Clinically, patient doing well with no new signs symptom suggestive of disease progression, tolerating three weekly Keytruda well, will proceed with next dose today, patient is scheduled for follow-up cystoscopy to assess the response to Keytruda, based on that we will make further recommendations. Patient return to clinic in 3 weeks with CMP Signed By: Bambi Bermudez M.D. <<Signature on File>>
== END 2021-01-22 23:59 | disposition home or self-care (01) ==
LOC: ONCMED 06:28
PROVIDERS: PCP Family Medicine; Visit Provider Internal Medicine Hematology & Oncology
DX: Z51.12 Encounter for antineoplastic immunotherapy (principal); C67.3 Malignant neoplasm of anterior wall of bladder; Z79.899 Other long term (current) drug therapy
CPT/HCPCS: 80053; 84443; 85025; 96413; 99215; J7050; J9271

== ENCOUNTER 2021-01-22 14:37 | Observation (INO) | payer MEDICARE, OTHER, SELFPAY ==
[2021-01-21 11:59] VITALS: BMI 25.7
[2021-01-22] VITALS (16 sets, daily range): BP systolic 115–160; BP diastolic 56–82; PULSE 49–61; RESP 14–20; TEMP 36.3–36.7; O2SAT 90–99; BMI 3710.2
[2021-01-22] MEDS: sodium chloride 0.9% 1,000 ML 30 ML IV (11:50)
--- NOTE | 2021-01-22 12:08 | ANES.PREANE2 ---
Pre-Anesthetic Assessment Pre-Anesthetic Assessment: Height/Weight: Height 1.83 m Weight 86.183 kg Temp Pulse Resp BP Pulse Ox 97.9 F 58 L 16 132/66 99 01/22/21 11:47 01/22/21 11:47 01/22/21 11:47 01/22/21 11:47 01/22/21 11:47 Preop Diagnosis: Bladder cancer Proposed Procedure: Operation Date: 01/22/21 13:05 Proposed Procedures p Cystoscopy 08271 C67.8(Not Applicable) - Leo Gonzalez MD s Transurethral Resection Bladder Tumor(Not Applicable) - Leo Gonzalez MD Was Beta Whit taken within 24 hours: N/A Was Clonidine taken within 24 hours: N/A Last intake: Intake Last Liquid Date 01/22/21 Last Liquid Time 07:30 Last Solid Date 01/21/21 Last Solid Time 18:30 Social: Social History: No alcohol and No tobacco Exam: Pre-Anes Outpt Exam: alert, oriented x 3 and clear to auscultation bilaterally Airway: Submandibular: WNL Cervical ROM: WNL MP: 2 History/ROS: No significant complaints Pulmonary: Pulmonary: None reported CV/HEM: CV/HEM: HTN : Comments: Bladder Ca Hepatic: Hepatic: None reported GI: GI: None reported Metabolic: Metabolic: None reported Musc/skel: Musc/skel: None reported Neuropsych: Neuropsych: None reported Anesthetic Plan: ASA status: 2 Anesthesia: Choice Risk of > 500 ml blood loss (7ml/kg in children): No Meds/Allergies Current Medications: Current Medications Generic Name Dose Route Start Last Admin Trade Name Freq PRN Reason Stop Dose Admin Sodium Chloride 1,000 mls @ 30 ml s/hr 01/22/21 11:30 01/22/21 11:50 Sodium Chloride 0.9% IV 01/23/21 11:29 30 mls/hr .Q24H CHARLY Administration PFSH Anesthesia PFSH: Medical History Hypertension Malignant neoplasm of overlapping sites of bladder Patient with history of carcinoma in situ treated with prolonged BCG. After failed BCG started KEYTRUDA with cystoscopic evidence of improvement December 2019 Surgical History H/O transurethral destruction of bladder lesion Family History Father , IN HIS 80'S CAD (coronary artery disease) Mother , IN HER 70'S Chronic kidney disease (CKD) Social History Alcohol intake: current Alcohol intake frequency: 0-2 Drinks per Day Alcohol type: hard liquor Marital status: Current occupational status: retired History of recent travel: No Data Anesthesia Cardiac Studies: No Data to Display
--- NOTE | 2021-01-22 12:12 | W.PM.OPSUD ---
Surgery/Procedure H&P Update DATE OF PROCEDURE: January 22, 2021 DATE H&P PERFORMED: 01/12/21 H&P UPDATE INFORMATION: I have reviewed H&P completed within last 30 days, I have examined patient prior to procedure, No changes to prior documentation and H&P is in [facility] EMR on date indicated PREOP DIAGNOSIS: Bladder cancer PLANNED PROCEDURE: Operation Date: 01/22/21 13:05 Proposed Procedures p Cystoscopy 89456 C67.8(Not Applicable) - Leo Gonzalez MD s Transurethral Resection Bladder Tumor(Not Applicable) - Leo Gonzalez MD
[2021-01-22 12:27] LABS: Basophils # 0.1 10^3/uL (0.0-0.1); Basophils % 1.2 %; Eosinophils # 0.2 10^3/uL (0.0-0.8); Eosinophils % 3.3 %; Hematocrit 43.6 % (42.0-52.0); Hemoglobin 14.4 g/dL (11.7-16.6); Lymphocytes # 1.3 10^3/uL (0.8-4.8); Lymphocytes % 18.9 %; Mean Corpuscular Hemoglobin 28.9 pg (28.0-34.0); Mean Corpuscular Volume 87.4 fl (80-94); Mean Platelet Volume 11.4 fL (7.4-10.4); Monocytes # 0.7 10^3/uL (0.2-0.9); Monocytes % 10.7 %; Neutrophils # 4.38 10^3/uL (1.8-7.7); Neutrophils % 65.7 %; Nucleated Red Blood Cells % 0 %; Platelet Count 215 10^3/cmm (130-400); Red Blood Count 4.99 10^6/uL (4.1-5.3); Red Cell Distribution Width 13.6 % (12.1-15.1); White Blood Count 6.7 10^3/uL (4.0-10.0)
[2021-01-22 12:52] LABS: Anion Gap 13.6 (5-19); Blood Urea Nitrogen 18 mg/dL (8-23); Carbon Dioxide 27 mmol/L (22-29); Chloride 101 mmol/L (98-107); Glucose 89 mg/dL (65-115); Osmolality Calculated 287 mOsm/kg (285-295); Potassium 3.6 mmol/L (3.5-5.1); Sodium 138 mmol/L (136-145)
[2021-01-22] MEDS: levofloxacin-dextrose 5 % 500 MG/100 ML PREMIX 100 MG IV (13:26)
[2021-01-22] MEDS: lidocaine 2% Urojet 20 mL TOPICAL (14:02)
--- NOTE | 2021-01-22 14:17 | PM.OP ---
Operative Report Date of procedure: January 22, 2021 Pre-op Diagnosis: Bladder cancer Post-op diagnosis: same Procedure Done: 1. Cystoscopy, transurethral resection of bladder lesion large Pathology: Right lateral bladder wall lesion Anesthesia: General Estimated blood loss: Less than 10 cc Urine output: Not measured Complications: 1. None Findings: Suspicious mucosa thickened intramural right lateral wall. Resected deeply into the muscle. No papillary component. Nothing that look like CIS Condition: stable Disposition: PACU Brief History: Mr. Farhad Begum is a very pleasant 75-year-old white male who had a history of refractory carcinoma in situ without good response to BCG. Ultimately did respond though to Keytruda. On routine surveillance cystoscopy recently the bladder overall looked much better but the right lateral wall looked very suspicious for an intramural process. He has had multiple biopsies in the past that were both positive for CIS and lamina propria invasive disease but also suspicious lesions biopsy that showed no cancer. It was ultimately recommended to proceed with resection of this area to assess current status. Procedure: After routine preoperative evaluation examination and obtaining of informed consent she was taken to the operating suite on 01/22/2021 where general anesthesia was administered without difficulty after appropriate timeout was performed, SCDs confirmed to be functioning, preoperative antibiotics administered, beta-china protocol confirmed. Prepped and draped in usual sterile fashion in dorsolithotomy position paying careful attention avoiding pressure points. 21 Gambian cystoscope with 30 degree lens was introduced into the well-lubricated urethra and advanced into the bladder to videoscopy. The clinic findings were confirmed. Most of the bladder actually look very good with the intramural thickened bladder wall in the right lateral wall. This was distinctly away from the right ureteral orifice. The urethra was then calibrated with Ashley sounds and easily accommodated 30 Gambian. 25 Gambian continuous-flow well-lubricated resectoscope sheath with visual obturator in place was advanced into the bladder without difficulty and the gyrus bipolar working element was utilized with the super loop for the resection. Prior to resection the landmarks of the right ureteral orifice were reascertained. An area greater than the diameter 5 cm was excised with the super loop down into the muscle. The muscle was easily visualized at the base of the resection. Bleeding was minimal. Button probe was utilized for fulguration. The suspicious mucosa was well sampled and resected. All samples were removed from the bladder and then the procedure was completed after confirmation of adequate hemostasis. A 20 Gambian three-way Ornelas catheter was then placed into the bladder without difficulty and light irrigation was conducted with normal saline CBI and the efflux remained clear. He tolerated the procedure well without complications and was awakened in the operating room and returned to the recovery room in stable condition. PLANS: 1. Admit to observation status tonight 2. Anticipate discharge tomorrow with Ornelas catheter in place due to the depth of resection
[2021-01-22] MEDS: docusate sodium 100 mg Capsule PO (17:23)
[2021-01-22] MEDS: tamsulosin 0.4 mg Capsule PO (17:24)
[2021-01-22] MEDS: NIFEdipine ER (24 hr) 30 mg Tablet 60 MG PO (17:24)
[2021-01-23 00:04] VITALS: BP 118/70; PULSE 54; RESP 16; TEMP 36.6; O2SAT 94
[2021-01-23 04:20] VITALS: BP 120/69; PULSE 50; RESP 18; TEMP 36.6; O2SAT 93
--- NOTE | 2021-01-23 07:52 | PM.DCS ---
Discharge Providers Date of Admission: 01/22/21 14:37 Date of Discharge: January 23, 2021 Attending Provider at Admission: Leo Gonzalez MD Attending Provider at Discharge: Leo Gonzalez MD Primary Care Provider: Marino Peguero DO Reason for Visit Reason for Visit: Bladder cancer Hospital Course Hospital Course The patient was admitted through outpatient surgery on the day of the procedure. He was found to have a thickened intramural process on the right lateral wall that may just be reactive or inflammatory. No clear papillary or mucosal tumor was identified. The resection was quite deep into the muscle and for that reason it was decided to leave the catheter in postop and that discharged with voiding trial next week along with [facility]IC training. His urine remained clear throughout the hospital stay and he was discharged on postop day #1 in stable condition. Routine postoperative instructions were reviewed, reasons to call were also reviewed. Physical Exam Const: COMMON NORMALS: no acute distress, alert and well nourished GENERAL APPEARANCE: well kempt and well developed ORIENTATION/CONSCIOUSNESS: not confused Resp: COMMON NORMALS: normal respiratory effort EFFORT & INSPECTION: No labored and No Actively coughing Neuro: COMMON NORMALS: no focal motor deficits SENSORIUM/ORIENTATION: Yes alert Psych: COMMON NORMALS: mental status grossly normal APPEARANCE: Yes grossly normal and Yes well kempt ATTITUDE: Yes calm and Yes engaged Urinary Catheter Management^: 3-way Urethral CBI: Cath Placed During This Visit: yes Reason for Continuing Indwelling Catheter: Other Urinary Catheter Date of Insertion: 01/22/21 Urinary Catheter Time of Insertion: 14:10 Discharge Data Data Completed and Pending: Pending at discharge Category Date Time Status Pathology: Surgic al [PTH] Routine Pth 01/22/21 14:31 Received Labs from last 24 hours 01/22/21 01/22/21 11:54 11:54 WBC 6.7 RBC 4.99 Hgb 14.4 Hct 43.6 MCV 87.4 MCH 28.9 MCHC 33.0 RDW 13.6 Plt Count 215 MPV 11.4 H Neut % (Auto) 65.7 Lymph % (Auto) 18.9 [place] % (Auto) 10.7 Eos % (Auto) 3.3 Baso % (Auto) 1.2 Neut # (Auto) 4.38 Lymph # (Auto) 1.3 [place] # (Auto) 0.7 Eos # (Auto) 0.2 Baso # (Auto) 0.1 Nucleated RBC % (a uto) 0 Nucleated RBCs # 0.0 Sodium 138 Potassium 3.6 Chloride 101 Carbon Dioxide 27 Anion Gap 13.6 BUN 18 Creatinine 0.5 L GFR Calculation Not Reportable Glucose 89 Calculated Osmolal ity 287 Calcium 9.0 Vitals: Last Vital Signs Temp 97.8 F 01/23/21 04:20 Pulse 50 L 01/23/21 04:20 Resp 18 01/23/21 04:20 BP 120/69 01/23/21 04:20 Pulse Ox 93 01/23/21 04:20 Discharge Plan Discharge Patient Disposition: Home Condition: Stable Prescriptions: Continued nifedipine [Procardia XL] 60 mg tablet extended release 24hr 60 mg PO BID Qty: 180 RF: 3 potassium chloride 10 mEq tablet,ER particles/crystals See Rx Instructions .ROUTE .COMPLEX Qty: 540 RF: 3 tamsulosin 0.4 mg capsule 0.4 mg PO BID Qty: 180 RF: 3 triamterene-hydrochlorothiazid 37.5-25 mg capsule See Rx Instructions .ROUTE .COMPLEX Qty: 180 RF: 3 DHS Zinc 2 % shampoo 1 applic TOPICAL DAILY RF: 0 sulfacetamide sodium (acne) 10 % suspension 1 applic TOPICAL DAILY RF: 0 fluticasone propionate [Flonase Allergy Relief] 50 mcg/actuation spray,suspension 1 spray intranasal DAILY Qty: 16 RF: 1 Discharge Orders: Discharge Order (Routine); Ordered 01/23/21 Ordered By: Leo Gonzalez Referrals: Leo Gonzalez MD [Physician] - 01/27/21 (voiding trial) Discharge Diet: Usual diet Discharge Activity: Limit activity as instructed Patient Instructions: Opioid Safety Activity Restrictions/Additional Instructions: 1. It is important to maintain the catheter in your bladder until follow-up visit next week. This will help the bladder heal before stressing and with normal voiding. We will also go over self-catheterization again to make sure that you can pass the catheter easily if needed. 2. Hopefully the pathology report will be available when you come back to clinic. 3. Please call the hospital process equipment operator for any concerns or questions after hours or the clinic during normal working hours. Discharge Attestations Time Spent in Discharge Care*: less than 30 min Status at Discharge: Cognitive status at discharge: cognitively intact, Behavioral status at discharge: cooperative, Quality Metrics Clinical Quality Measures During this hospital stay, did patient experience: None Coding Level of Care Code Acute Chg FW DC note
[2021-01-23 08:00] VITALS: BP 136/63; PULSE 59; RESP 18; TEMP 36.6; O2SAT 96
[2021-01-23] MEDS: docusate sodium 100 mg Capsule PO (08:42)
[2021-01-23] MEDS: tamsulosin 0.4 mg Capsule PO (08:43)
[2021-01-23] MEDS: NIFEdipine ER (24 hr) 30 mg Tablet 60 MG PO (08:43)
[2021-01-23 11:17] VITALS: BP 120/65; PULSE 71; RESP 16; O2SAT 94
[2021-01-23 13:44] VITALS: BP 120/65; PULSE 71; RESP 16; O2SAT 94
--- NOTE | 2021-01-26 09:18 | PC.SOCIAL ---
discharge follow up call made, spoke with patients . 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 she reports pt has a adan cath in place and is doing well with that. is aware of follow up appointment tomorrow with dr. marquez.
== END 2021-01-23 13:40 | disposition home or self-care (01) ==
LOC: MEDSURG 14:39
PROVIDERS: Admitting Provider Urology; PCP Family Medicine; Visit Provider Urology
PROC: 0TJB8ZZ Inspection of Bladder, Via Natural or Artificial Opening Endoscopic (ICD-10-PCS; CPT 52000; principal; 2021-01-22 12:55)
PROC: 0TBB8ZZ Excision of Bladder, Via Natural or Artificial Opening Endoscopic (ICD-10-PCS; CPT 52240; 2021-01-22 12:55)
DX: C67.8 Malignant neoplasm of overlapping sites of bladder (principal); I10 Essential (primary) hypertension; Z82.49 Family history of ischemic heart disease and other diseases of the circulatory system
CPT/HCPCS: 52240; 36415; 80048; 85025; 88305; G0378; J1100; J1956; J2405; J2704; J3010; J3490; J7030

== ENCOUNTER 2021-02-10 06:33 | Outpatient (RCR) | payer MEDICARE, OTHER, SELFPAY ==
[2021-02-10 09:22] LABS: Alanine Aminotransferase 13 U/L (0-41); Alkaline Phosphatase 87 IU/L (40-130); Anion Gap 14.4 (5-19); Aspartate Amino Transferase 19 U/L (0-40); Blood Urea Nitrogen 15 mg/dL (8-23); Calcium 9.6 mg/dL (8.5-10.5); Carbon Dioxide 29 mmol/L (22-29); Chloride 99 mmol/L (98-107); Globulin 3.9 g/dL (1.3-4.6); Glucose 141 mg/dL (65-115); Osmolality Calculated 291 mOsm/kg (285-295); Potassium 3.4 mmol/L (3.5-5.1); Sodium 139 mmol/L (136-145); Total Bilirubin 0.4 mg/dL (0.15-1.2); Total Protein 7.9 g/dL (6.6-8.7)
[2021-02-10] MEDS: sodium chloride 0.9% 250 ML 125 ML IV (11:45)
[2021-02-10 13:26] LABS: Magnesium 1.6 mg/dL (1.7-2.3)
--- NOTE | 2021-02-18 23:16 | ONC FU_ITS ---
[facility] Patient Note Patient: Farhad Begum Unit #: [id number]: 1945 Dictated By: Kassi PerdomoDate of Visit: Feb 10, 2021 Onc MED Follow-Up/Prog Note Chief Complaint: urinary bladder cancer History of Present Illness: Mr. Begum is a 75-year-old gentleman with history of superficial bladder cancer who has been treated with intravesical BCG. He underwent TURBT on 05/14/2019. He has an anterior bladder wall lesion completely removed. The final pathology report came back papillary urothelial carcinoma, high-grade. Carcinoma invades into lamina propria, no muscularis propria present for evaluation eg pT1 Left lateral bladder wall lesion was also biopsied and it showed reactive atypical urothelium in the background of abundant polypoid granulation tissue; no malignancy identified; no dysplasia seen. Biopsy from bladder, left trigone shows carcinoma in situ no invasive malignancy seen. Mr Begum Underwent cystoscopy and rebiopsy of urinary bladder on 06/28/2019. 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 He was referred to Dr Bermudez in our oncology clinic for consideration for immunotherapy with pembrolizumab which was approved by FDA per keynote 057 trial findings. 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 He presented for follow-up on September 03, 2019 with a rash on his forearms and hands. It was opted to hold his Keytruda and have him return in 2 weeks. After 2 weeks, his rash was better but had not resolved-it was not particularly itchy it was just there. Mr Begum was referred to dermatology with Dr. Diaz, whom he saw on October 29, 2019. Per Dr Diaz's impression, the rash did not appear to be drug related and immunotherapy could be resumed. Patient was given TAC cream. His immunotherapy was on hold from August 14, 2019 until April 23, 2020 Mr Begum had immunotherapy on August 14, 2019 and then his treatment was placed on hold due to the rash. He had repeat bladder biopsy per Dr Gonzalez on 01/24/2020. There were four biopsies reported by pathology with no in situ carcinoma or invasive cancer identified in 3/4 of the specimes. 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 No invasive carcinoma identified . Case was discussed with Dr. Gonzalez , he reported the follow-up cystoscopy showed huge improvement with some area of patchy erythema but they are much smaller and less suspicious. There was one area that was more typical for residual CIS but was very small on the right lateral wall. With that dicussion, it was decided to continue with immunotherapy and follow-up with cystoscopy. Mr Begum resumed every 3 week Keytruda on April 23, 2020. He has tolerated it well. Mr. Begum continued on the immunotherapy with the pembrolizumab (Keytruda). He continued to tolerate it well with no recurrent rash. Follow-up cystoscopy done on September 29, 2020 showed some erythematous changes in the posterior right lateral wall, appeared to be better than they had previously. Same area where he did have small amount of CIS, patient underwent biopsy of right lateral posterior floor wall and it showed fragments of bladder stroma with chronic inflammation. Rare strips of benign urothelial cells identified. No evidence of high-grade urothelial carcinoma. Mr Begum continues with every 3 week pembrolizumab. He continues to tolerate it well again with no rash. Mr. Begum is here today for follow-up. He is due for cycle 16 pembrolizumab. He has no new concerns today. He denies any fever or chills. He denies any vision changes or headaches. He denies any shortness of breath orthopnea. He denies any cough, pain with breathing. He denies any hemoptysis. He states that his bowels and bladder are normal for him. His energy is normal for him. His ECOG is 1. He states that he is doing well. He denies mouth sores, sore throat or difficulty swallowing. He has had no episodes of confusion or memory loss. He denies any skin changes or rash. He has had no skin lesions. He denies any neuropathy symptoms. He denies any hematuria or urinary concerns. He denies any pain. Past Medical History: Bph Hypertension Past Surgical History: Biopsy of bladder muscle TURBT Covid vaccine #2 moderna in 2020 Covid vaccine #1 moderna in 2020 Allergies: No Known Allergies. Medications: Cefuroxime Axetil 1 Tablet (of 500 mg) Oral b.i.d. DHS Zinc Shampoo Topical PRN Potassium Chloride Mile ER 3 Tablet (of 10 meq) Tablet, controlled release Oral b.i.d. Procardia XL 1 Tablet (of 60 mg) Tablet SR 24 HR Oral b.i.d. Sulfacetamide Sodium Cream Topical PRN Tamsulosin HCl 2 Capsule (of 0.4 mg) Oral at bedtime Triamterene-HCTZ 1 Capsule (of 37.5-25 mg) Oral b.i.d. ZyrTEC Allergy 1 Capsule (of 10 mg) Oral daily PRN Family History: Mr. Begum's mother at age 77: kidney disease, and stroke. Mr. Begum's father at age 82: heart disease. Mr. Begum has 2 sisters: 2 . Social History: Mr. Begum is . Mr. Begum no longer smokes. He has indicated exposure to the following products: chewing tobacco. pt states he drinks one shot once a day of bourbon. He also chews tobacco two cans a week. Review Of Symptoms: <See Above> Vital Signs: Performed on Feb 10, 2021 10:54 Height - 72.00 in Weight - 196.2 lbs (LOW) BSA - 2.11 sq.m BMI - 26.61 Temperature - 97.6 F (LOW) Pulse - 67 /min Respiration - 16 /min BP - 136/66 mm(hg) O2 Sat - 96 % Pain - 0 Fatigue - 0,1 - No physically strenuous activity, but ambulatory and able to carry out light or sedentary work (e.g. office work, light house work). (ECOG) Physical Examination: Constitutional Alert, oriented, no acute distress. Skin pink, warm and dry. Head Normocephalic; atraumatic. Eyes Conjunctivae and sclerae are clear and without icterus. Pupils are reactive and equal. Neck Supple without masses or thyromegaly. No jugular venous distension. Hematologic/Lymphatic No petechiae or purpura. No tender or palpable lymph nodes in the cervical or supraclavicular areas. Respiratory Lungs are clear to auscultation without rhonchi or wheezing. Cardiovascular Regular rate and rhythm of heart without murmurs,clicks, gallops or rubs. Chest Chest is symmetric without chest wall deformities. Abdomen Non-tender, non-distended, no masses or ascites. No guarding or rebound tenderness. No pulsatile masses. Back/Spine Non-tender to palpation. Extremities No visible deformities, no cyanosis, clubbing or edema. Musculoskeletal No tenderness or swelling, normal range of motion without obvious weakness. Integumentary No rashes or lesions. Neurologic No sensory or motor deficits, normal cerebellar function, normal gait. Psychiatric Alert and oriented times three. Coherent speech. Verbalizes understanding of our discussions today. Laboratory:Test performed on Feb 10, 2021 08:11 Magnesium 1.6 mg/dL Sodium 139 mmol/L Potassium 3.4 mmol/L Chloride 99 mmol/L CO2 29 mmol/L Anion Gap 14.4 BUN 15 mg/dL Creatinine 0.7 mg/dL Cr Clearance (Est) 111.25 mL/min Glucose 141 mg/dL Osmolality - Calculated 291 mOsm/kg Calcium 9.6 mg/dL Protein, Total 7.9 g/dL Albumin 4.0 g/dL Globulin 3.9 g/dL Bilirubin, Total 0.4 mg/dL ALT (SGPT) 13 U/L AST (SGOT) 19 U/L Alkaline Phosphatase 87 IU/L Test performed on Oct 22, 2020 12:49 TSH 0.94 uIU/mL WBC 8.3 10 3/uL RBC 5.31 10 6/uL HGB 14.9 g/dL HCT 44.3 % MCV 83.4 fL MCH 28.1 pg MCHC 33.6 g/dL RDW 13.3 % Platelet Count 213 10 3/cmm MPV 11.2 fL Neutrophils 5.55 10 3/uL Lymphocytes 1.5 10 3/uL Monocytes 0.7 10 3/uL Eosinophils 0.4 10 3/uL Basophils 0.1 10 3/uL Neutrophil % 67.3 % Lymphocyte % 18.2 % Monocyte % 8.7 % Eosinophil % 4.6 % Basophils % 1.0 % NRBC % 0 % Impression: Papillary urothelial carcinoma, high-grade, involving anterior urinary bladder wall, per TURBT done on 05/14/2019, final pathology report showed carcinoma invades into lamina propria, no muscularis propria present for evaluation pT1 Status post intravesical therapy with BCG now 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 Started on 3 weekly Keytruda on 07/24/2019. His Keytruda is currently on hold due to maculopapular rash on forearms and hands. His last dose was 08/14/2019. in November 2019, discussed with patient regarding his question concern, his skin rash involving bilateral upper extremities almost resolved now with mild erythema,, the last dose of Keytruda was given in 08/12 he was told rash could not be due to immunotherapy.Patient underwent follow-up cystoscopy which showed huge improvement with immunotherapy Restarted on Keytruda on April 23, 2020. Plan/Problems Addressed at this Visit: Papillary urothelial carcinoma, high-grade. He is currently undergoing immunotherapy with pembrolizumab. The current plan is to continue pembrolizumab up to 24 months from his starting date on June 2019. He had follow-up with Dr. Gonzalez and repeat cystoscopy/bladder biopsy on 01/22/2021. The final pathology dated 01/23/2021 reports bladder biopsy: #1 polypoid edematous granulation tissue with reactive and metaplastic urethral mucosa #2 no dysplasia or malignancy seen . A. Continue with cycle 16 pembrolizumab at same dosing. B. Today's labs reviewed in detail discussed with Mr. Begum a copy was given to him. his labs included CT. His last TSH was on January 20 at which time was reported at 1.37. His creatinine today 0.7 random glucose was 144 and LFTs were normal. His weight is 196.2 today. It was noted that his potassium was slightly low and a magnesium was requested on blood in lab. It is reported at 1.6. He is encouraged to take his potassium supplement and could take 1 magnesium [id number] daily if wanted however both are borderline and may be corrected with diet or regular multivitamin. He is denying any leg cramps or palpitations. Follow-up plan A. He will have follow-up in 3 weeks with CBC CMP and TSH for immunotherapy monitoring. B. Mr. Begum was instructed to contact us in the interim should questions or problems arise. Signed By: Kassi Perdomo-, [facility] Bambi Bermudez MD <<Signature on File>>
== END 2021-02-22 23:59 | disposition home or self-care (01) ==
LOC: ONCMED 06:33
PROVIDERS: PCP Family Medicine; Visit Provider Nurse Practitioner
DX: Z51.12 Encounter for antineoplastic immunotherapy (principal); C67.3 Malignant neoplasm of anterior wall of bladder; L27.1 Localized skin eruption due to drugs and medicaments taken internally; T45.1X5D Adverse effect of antineoplastic and immunosuppressive drugs, subsequent encounter; Z79.899 Other long term (current) drug therapy
CPT/HCPCS: 80053; 83735; 96413; 99215; J7050; J9271

== ENCOUNTER 2021-03-24 06:31 | Outpatient (RCR) | payer MEDICARE, OTHER, SELFPAY ==
[2021-03-03 11:19] LABS: Basophils # 0.1 10^3/uL (0.0-0.1); Basophils % 0.7 %; Eosinophils # 0.2 10^3/uL (0.0-0.8); Eosinophils % 2.7 %; Hematocrit 46.3 % (42.0-52.0); Hemoglobin 15.7 g/dL (11.7-16.6); Lymphocytes # 1.4 10^3/uL (0.8-4.8); Lymphocytes % 20.1 %; Mean Corpuscular HGB Conc 33.9 g/dL (30.0-36.0); Mean Corpuscular Hemoglobin 29.2 pg (28.0-34.0); Mean Corpuscular Volume 86.1 fl (80-94); Mean Platelet Volume 11.7 fL (7.4-10.4); Monocytes # 0.5 10^3/uL (0.2-0.9); Monocytes % 7.2 %; Neutrophils # 4.61 10^3/uL (1.8-7.7); Neutrophils % 68.9 %; Nucleated Red Blood Cells % 0 %; Platelet Count 206 10^3/cmm (130-400); Red Blood Count 5.38 10^6/uL (4.1-5.3); White Blood Count 6.7 10^3/uL (4.0-10.0)
[2021-03-03 12:06] LABS: Alanine Aminotransferase 14 U/L (0-41); Albumin Level 4.2 g/dL (3.5-5.2); Alkaline Phosphatase 74 IU/L (40-130); Anion Gap 14.3 (5-19); Aspartate Amino Transferase 22 U/L (0-40); Blood Urea Nitrogen 12 mg/dL (8-23); Calcium 9.6 mg/dL (8.5-10.5); Carbon Dioxide 29 mmol/L (22-29); Chloride 98 mmol/L (98-107); Globulin 3.5 g/dL (1.3-4.6); Glucose 126 mg/dL (65-115); Osmolality Calculated 287 mOsm/kg (285-295); Potassium 3.3 mmol/L (3.5-5.1); Sodium 138 mmol/L (136-145); Thyroid Stimulating Hormone 1.26 uIU/mL (0.27-4.20); Total Bilirubin 0.5 mg/dL (0.15-1.2); Total Protein 7.7 g/dL (6.6-8.7)
--- NOTE | 2021-03-15 19:50 | ONC FU_ITS ---
[facility] Patient Note Patient: Farhad Begum Unit #: [id number]: 1945 Dictated By: Kassi PerdomoDate of Visit: Mar 03, 2021 Onc MED Follow-Up/Prog Note Chief Complaint: urinary bladder cancer History of Present Illness: Mr. Begum is a 75-year-old gentleman with history of superficial bladder cancer who has been treated with intravesical BCG. He underwent TURBT on 05/14/2019. He has an anterior bladder wall lesion completely removed. The final pathology report came back papillary urothelial carcinoma, high-grade. Carcinoma invades into lamina propria, no muscularis propria present for evaluation eg pT1 Left lateral bladder wall lesion was also biopsied and it showed reactive atypical urothelium in the background of abundant polypoid granulation tissue; no malignancy identified; no dysplasia seen. Biopsy from bladder, left trigone shows carcinoma in situ no invasive malignancy seen. Mr Begum underwent cystoscopy and rebiopsy of urinary bladder on 06/28/2019. 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 He was referred to Dr Bermudez in our oncology clinic for consideration for immunotherapy with pembrolizumab which was approved by FDA per keynote 057 trial findings. 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 He presented for follow-up on September 03, 2019 with a rash on his forearms and hands. It was opted to hold his Keytruda and have him return in 2 weeks. After 2 weeks, his rash was better but had not resolved-it was not particularly itchy it was just there. Mr Begum was referred to dermatology with Dr. Diaz, whom he saw on October 29, 2019. Per Dr Diaz's impression, the rash did not appear to be drug related and immunotherapy could be resumed. Patient was given TAC cream. His immunotherapy was on hold from August 14, 2019 until April 23, 2020 Mr Begum had immunotherapy on August 14, 2019 and then his treatment was placed on hold due to the rash. He had repeat bladder biopsy per Dr Gonzalez on 01/24/2020. There were four biopsies reported by pathology with no in situ carcinoma or invasive cancer identified in 3/4 of the specimes. 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 No invasive carcinoma identified . Case was discussed with Dr. Gonzalez , he reported the follow-up cystoscopy showed huge improvement with some area of patchy erythema but they are much smaller and less suspicious. There was one area that was more typical for residual CIS but was very small on the right lateral wall. With that dicussion, it was decided to continue with immunotherapy and follow-up with cystoscopy. Mr Begum resumed every 3 week Keytruda on April 23, 2020. He has tolerated it well. Mr. Begum continued on the immunotherapy with the pembrolizumab (Keytruda). He continued to tolerate it well with no recurrent rash. Follow-up cystoscopy done on September 29, 2020 showed some erythematous changes in the posterior right lateral wall, appeared to be better than they had previously. Same area where he did have small amount of CIS, patient underwent biopsy of right lateral posterior floor wall and it showed fragments of bladder stroma with chronic inflammation. Rare strips of benign urothelial cells identified. No evidence of high-grade urothelial carcinoma. Mr Begum continues with every 3 week pembrolizumab. He continues to tolerate it well again with no rash. Mr. Begum is here today for follow-up. He is due for cycle 17 pembrolizumab. He has no new concerns today. He denies any fever or chills. He denies any vision changes or headaches. He denies any shortness of breath orthopnea. He denies any cough, pain with breathing. He denies any hemoptysis. He states that his bowels and bladder are normal for him. His energy is normal for him. His ECOG is 1. He states that he is doing well. He denies mouth sores, sore throat or difficulty swallowing. He has had no episodes of confusion or memory loss. He denies any skin changes or rash. He has had no skin lesions. He denies any neuropathy symptoms. He denies any hematuria or urinary concerns. He denies any pain. His ECOG is 0. Past Medical History: Bph Hypertension Past Surgical History: Biopsy of bladder muscle TURBT Covid vaccine #2 moderna in 2020 Covid vaccine #1 moderna in 2020 Allergies: No Known Allergies. Medications: Cefuroxime Axetil 1 Tablet (of 500 mg) Oral b.i.d. DHS Zinc Shampoo Topical PRN Potassium Chloride Mile ER 3 Tablet (of 10 meq) Tablet, controlled release Oral b.i.d. Procardia XL 1 Tablet (of 60 mg) Tablet SR 24 HR Oral b.i.d. Sulfacetamide Sodium Cream Topical PRN Tamsulosin HCl 2 Capsule (of 0.4 mg) Oral at bedtime Triamterene-HCTZ 1 Capsule (of 37.5-25 mg) Oral b.i.d. ZyrTEC Allergy 1 Capsule (of 10 mg) Oral daily PRN Family History: Mr. Begum's mother at age 77: kidney disease, and stroke. Mr. Begum's father at age 82: heart disease. Mr. Begum has 2 sisters: 2 . Social History: Mr. Begum is . Mr. Begum no longer smokes. He has indicated exposure to the following products: chewing tobacco. pt states he drinks one shot once a day of bourbon. He also chews tobacco two cans a week. Review Of Symptoms: <See Above> Vital Signs: Performed on Mar 03, 2021 13:13 Height - 72.00 in Weight - 196.4 lbs (HIGH) BSA - 2.11 sq.m BMI - 26.64 Temperature - 97.4 F (LOW) Pulse - 66 /min Respiration - 18 /min BP - 138/61 mm(hg) O2 Sat - 97 % Pain - 0 Fatigue - 2,0 - Fully active, able to carry on all predisease activities without restrictions. (ECOG) Physical Examination: Constitutional Alert, oriented, no acute distress. Skin pink, warm and dry. Head Normocephalic; atraumatic. Eyes Conjunctivae and sclerae are clear and without icterus. Pupils are reactive and equal. Neck Supple without masses or thyromegaly. No jugular venous distension. Hematologic/Lymphatic No petechiae or purpura. No tender or palpable lymph nodes in the cervical or supraclavicular areas. Respiratory Lungs are clear to auscultation without rhonchi or wheezing. Cardiovascular Regular rate and rhythm of heart without murmurs,clicks, gallops or rubs. Chest Chest is symmetric without chest wall deformities. Abdomen Non-tender, non-distended, no masses or ascites. No guarding or rebound tenderness. No pulsatile masses. Back/Spine Non-tender to palpation. Extremities No visible deformities, no cyanosis, clubbing or edema. Musculoskeletal No tenderness or swelling, normal range of motion without obvious weakness. Integumentary No rashes or lesions. Neurologic No sensory or motor deficits, normal cerebellar function, normal gait. Psychiatric Alert and oriented times three. Coherent speech. Verbalizes understanding of our discussions today. Laboratory:Test performed on Mar 03, 2021 10:39 Sodium 138 mmol/L TSH 1.26 uIU/mL Potassium 3.3 mmol/L Chloride 98 mmol/L CO2 29 mmol/L Anion Gap 14.3 BUN 12 mg/dL Creatinine 0.6 mg/dL Cr Clearance (Est) 129.92 mL/min Glucose 126 mg/dL Osmolality - Calculated 287 mOsm/kg Calcium 9.6 mg/dL Protein, Total 7.7 g/dL Albumin 4.2 g/dL Globulin 3.5 g/dL Bilirubin, Total 0.5 mg/dL ALT (SGPT) 14 U/L AST (SGOT) 22 U/L Alkaline Phosphatase 74 IU/L WBC 6.7 10 3/uL RBC 5.38 10 6/uL HGB 15.7 g/dL HCT 46.3 % MCV 86.1 fl MCH 29.2 pg MCHC 33.9 g/dL RDW 13.0 % Platelet Count 206 10 3/cmm MPV 11.7 fL Neutrophils 4.61 10 3/uL Lymphocytes 1.4 10 3/uL Monocytes 0.5 10 3/uL Eosinophils 0.2 10 3/uL Basophils 0.1 10 3/uL Neutrophil % 68.9 % Lymphocyte % 20.1 % Monocyte % 7.2 % Eosinophil % 2.7 % Basophils % 0.7 % NRBC % 0 % Test performed on Feb 10, 2021 08:11 Magnesium 1.6 mg/dL Impression: Papillary urothelial carcinoma, high-grade, involving anterior urinary bladder wall, per TURBT done on 05/14/2019, final pathology report showed carcinoma invades into lamina propria, no muscularis propria present for evaluation pT1 Status post intravesical therapy with BCG now 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 Started on 3 weekly Keytruda on 07/24/2019. His Keytruda is currently on hold due to maculopapular rash on forearms and hands. His last dose was 08/14/2019. in November 2019, discussed with patient regarding his question concern, his skin rash involving bilateral upper extremities almost resolved now with mild erythema,, the last dose of Keytruda was given in 08/12 he was told rash could not be due to immunotherapy.Patient underwent follow-up cystoscopy which showed huge improvement with immunotherapy Restarted on Keytruda on April 23, 2020. Plan/Problems Addressed at this Visit: Papillary urothelial carcinoma, high-grade. He is currently undergoing immunotherapy with pembrolizumab. The current plan is to continue pembrolizumab up to 24 months from his starting date on June 2019. He had follow-up with Dr. Gonzalez and repeat cystoscopy/bladder biopsy on 01/22/2021. The final pathology dated 01/23/2021 reports bladder biopsy: #1 polypoid edematous granulation tissue with reactive and metaplastic urethral mucosa #2 no dysplasia or malignancy seen . A. Continue with cycle 17 pembrolizumab at same dosing. B. Today's labs reviewed in detail discussed with Cheryl Kel a copy was given to him. WBC 6.7, hemoglobin 15.7, platelets 206,000, ANC is 4610. Potassium 3.3 random glucose 126 creatinine 0.6 and LFTs are normal. TSH is 1.26. Weight is stable at 196.4 today. Hypokalemia/Hypomagnesium A. Continue potassium at 3 tablets twice daily B. Add Mag ox 500 mg 1 tablet daily (watch for diarrhea). Follow-up plan A. Return in 3 weeks for cycle 18 pembrolizumab. I have asked for a BMP and a magnesium at that time to reassess his hypokalemia and hypomagnesium. He will not need an office visit that day unless problems have arise in the interim. B. He will have follow-up in 6 weeks with CBC CMP and TSH for immunotherapy monitoring. C. Mr. Begum was instructed to contact us in the interim should questions or problems arise. Signed By: Kassi Perdomo-, AOCNP Bambi Bermudez MD <<Signature on File>>
[2021-03-24 09:55] LABS: Anion Gap 16.6 (5-19); Blood Urea Nitrogen 22 mg/dL (8-23); Calcium 9.4 mg/dL (8.5-10.5); Carbon Dioxide 24 mmol/L (22-29); Chloride 104 mmol/L (98-107); Glucose 122 mg/dL (65-115); Magnesium 1.6 mg/dL (1.7-2.3); Osmolality Calculated 297 mOsm/kg (285-295); Potassium 3.6 mmol/L (3.5-5.1); Sodium 141 mmol/L (136-145)
== END 2021-03-24 23:59 | disposition home or self-care (01) ==
LOC: ONCMED 06:31
PROVIDERS: Nurse Practitioner; PCP Family Medicine; Visit Provider Internal Medicine Hematology & Oncology
DX: Z51.12 Encounter for antineoplastic immunotherapy (principal); C67.3 Malignant neoplasm of anterior wall of bladder; H35.383 Toxic maculopathy, bilateral; T45.1X5A Adverse effect of antineoplastic and immunosuppressive drugs, initial encounter; E87.6 Hypokalemia; Z79.899 Other long term (current) drug therapy
CPT/HCPCS: 80048; 80053; 83735; 84443; 85025; 96413; 99215; J7050; J9271

== ENCOUNTER 2021-04-14 06:48 | Outpatient (RCR) | payer MEDICARE, OTHER, SELFPAY ==
[2021-04-14 10:39] LABS: Basophils # 0.1 10^3/uL (0.0-0.1); Basophils % 0.7 %; Eosinophils # 0.1 10^3/uL (0.0-0.8); Eosinophils % 1.5 %; Hematocrit 44.3 % (42.0-52.0); Hemoglobin 15.2 g/dL (11.7-16.6); Lymphocytes # 1.1 10^3/uL (0.8-4.8); Lymphocytes % 13.4 %; Mean Corpuscular HGB Conc 34.3 g/dL (30.0-36.0); Mean Corpuscular Volume 84.5 fl (80-94); Monocytes # 0.7 10^3/uL (0.2-0.9); Monocytes % 7.7 %; Neutrophils # 6.43 10^3/uL (1.8-7.7); Neutrophils % 76.5 %; Nucleated Red Blood Cells % 0 %; Platelet Count 214 10^3/cmm (130-400); Red Blood Count 5.24 10^6/uL (4.1-5.3); Red Cell Distribution Width 13.3 % (12.1-15.1); White Blood Count 8.4 10^3/uL (4.0-10.0)
[2021-04-14 11:14] LABS: Alanine Aminotransferase 16 U/L (0-41); Albumin Level 4.2 g/dL (3.5-5.2); Alkaline Phosphatase 79 IU/L (40-130); Aspartate Amino Transferase 27 U/L (0-40); Blood Urea Nitrogen 16 mg/dL (8-23); Calcium 8.8 mg/dL (8.5-10.5); Carbon Dioxide 26 mmol/L (22-29); Chloride 99 mmol/L (98-107); Globulin 3.1 g/dL (1.3-4.6); Glucose 119 mg/dL (65-115); Magnesium 1.6 mg/dL (1.7-2.3); Osmolality Calculated 290 mOsm/kg (285-295); Sodium 139 mmol/L (136-145); Total Bilirubin 0.5 mg/dL (0.15-1.2); Total Protein 7.3 g/dL (6.6-8.7)
[2021-04-14 11:27] LABS: Anion Gap 17.6 (5-19); Potassium 3.6 mmol/L (3.5-5.1)
== END 2021-04-24 23:59 | disposition home or self-care (01) ==
LOC: ONCMED 06:48
PROVIDERS: PCP Family Medicine; Visit Provider Internal Medicine Hematology & Oncology
DX: Z51.12 Encounter for antineoplastic immunotherapy (principal); C67.0 Malignant neoplasm of trigone of bladder; E03.9 Hypothyroidism, unspecified
CPT/HCPCS: 80053; 83735; 84443; 85025; 96413; J7050; J9271

== ENCOUNTER 2021-05-05 07:49 | Outpatient (RCR) | payer MEDICARE, OTHER, SELFPAY ==
[2021-05-05 08:58] LABS: Basophils # 0.1 10^3/uL (0.0-0.1); Basophils % 0.8 %; Eosinophils # 0.1 10^3/uL (0.0-0.8); Eosinophils % 2.1 %; Hemoglobin 15.4 g/dL (11.7-16.6); Lymphocytes # 1.3 10^3/uL (0.8-4.8); Lymphocytes % 20.1 %; Mean Corpuscular HGB Conc 33.5 g/dL (30.0-36.0); Mean Corpuscular Hemoglobin 28.6 pg (28.0-34.0); Mean Corpuscular Volume 85.3 fl (80-94); Mean Platelet Volume 12.3 fL (7.4-10.4); Monocytes # 0.6 10^3/uL (0.2-0.9); Monocytes % 8.7 %; Nucleated Red Blood Cells % 0 %; Platelet Count 231 10^3/cmm (130-400); Red Blood Count 5.39 10^6/uL (4.1-5.3); Red Cell Distribution Width 13.3 % (12.1-15.1); White Blood Count 6.3 10^3/uL (4.0-10.0)
[2021-05-05 09:19] LABS: Alanine Aminotransferase 14 U/L (0-41); Albumin Level 4.1 g/dL (3.5-5.2); Alkaline Phosphatase 82 IU/L (40-130); Anion Gap 16.9 (5-19); Aspartate Amino Transferase 24 U/L (0-40); Blood Urea Nitrogen 12 mg/dL (8-23); Calcium 9.6 mg/dL (8.5-10.5); Carbon Dioxide 24 mmol/L (22-29); Chloride 102 mmol/L (98-107); Globulin 2.9 g/dL (1.3-4.6); Glucose 110 mg/dL (65-115); Osmolality Calculated 290 mOsm/kg (285-295); Sodium 140 mmol/L (136-145); Thyroid Stimulating Hormone 1.09 uIU/mL (0.27-4.20); Total Bilirubin 0.6 mg/dL (0.15-1.2)
[2021-05-05 09:31] LABS: Potassium 2.9 mmol/L (3.5-5.1)
[2021-05-05 10:40] LABS: Magnesium 1.4 mg/dL (1.7-2.3)
--- NOTE | 2021-05-05 15:09 | ONC FU_ITS ---
Dr. Bermudez follow up note Patient: Farhad Begum Unit #: [id number]: 1945 Dicatated By: Bambi Bermudez M.D.Date of Visit:May 05, 2021 Onc Med Follow-up/Prog Note History of Present Illness: Mr. Begum is a 75-year-old gentleman with history of superficial bladder cancer who has been treated with intravesical BCG. He underwent TURBT on 05/14/2019. He has an anterior bladder wall lesion completely removed. The final pathology report came back papillary urothelial carcinoma, high-grade. Carcinoma invades into lamina propria, no muscularis propria present for evaluation eg pT1 Left lateral bladder wall lesion was also biopsied and it showed reactive atypical urothelium in the background of abundant polypoid granulation tissue; no malignancy identified; no dysplasia seen. Biopsy from bladder, left trigone shows carcinoma in situ no invasive malignancy seen. Mr Begum underwent cystoscopy and rebiopsy of urinary bladder on 06/28/2019. 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 He was referred to Dr Bermudez in our oncology clinic for consideration for immunotherapy with pembrolizumab which was approved by FDA per keynote 057 trial findings. 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 He presented for follow-up on September 03, 2019 with a rash on his forearms and hands. It was opted to hold his Keytruda and have him return in 2 weeks. After 2 weeks, his rash was better but had not resolved-it was not particularly itchy it was just there. Mr Begum was referred to dermatology with Dr. Diaz, whom he saw on October 29, 2019. Per Dr Diaz's impression, the rash did not appear to be drug related and immunotherapy could be resumed. Patient was given TAC cream. His immunotherapy was on hold from August 14, 2019 until April 23, 2020 Mr Begum had immunotherapy on August 14, 2019 and then his treatment was placed on hold due to the rash. He had repeat bladder biopsy per Dr Gonzalez on 01/24/2020. There were four biopsies reported by pathology with no in situ carcinoma or invasive cancer identified in 3/4 of the specimes. 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 No invasive carcinoma identified . Case was discussed with Dr. Gonzalez , he reported the follow-up cystoscopy showed huge improvement with some area of patchy erythema but they are much smaller and less suspicious. There was one area that was more typical for residual CIS but was very small on the right lateral wall. With that dicussion, it was decided to continue with immunotherapy and follow-up with cystoscopy. Mr Begum resumed every 3 week Keytruda on April 23, 2020. He has tolerated it well. Mr. Begum continued on the immunotherapy with the pembrolizumab (Keytruda). He continued to tolerate it well with no recurrent rash. Follow-up cystoscopy done on September 29, 2020 showed some erythematous changes in the posterior right lateral wall, appeared to be better than they had previously. Same area where he did have small amount of CIS, patient underwent biopsy of right lateral posterior floor wall and it showed fragments of bladder stroma with chronic inflammation. Rare strips of benign urothelial cells identified. No evidence of high-grade urothelial carcinoma. Came for follow-up, denies any specific complaints, no fever chills, no nausea or vomiting, no diarrhea constipation, no melena or hematochezia, no dysuria or hematuria, no abdominal pain, no skin rash but bruising on upper extremities, which is chronic. No shortness of breath or wheezing, tolerating immunotherapy with Keytruda well otherwise. Patient was scheduled to see Dr. Gonzalez for follow-up cystoscopy around [place], as per patient he was rescheduled and is still awaiting for follow-up cystoscopy. Medications: Cefuroxime Axetil 1 Tablet (of 500 mg) Oral b.i.d., DHS Zinc Shampoo Topical PRN, Potassium Chloride Mile ER 3 Tablet (of 10 meq) Tablet, controlled release Oral b.i.d., Procardia XL 1 Tablet (of 60 mg) Tablet SR 24 HR Oral b.i.d., Sulfacetamide Sodium Cream Topical PRN, Tamsulosin HCl 2 Capsule (of 0.4 mg) Oral at bedtime, Triamterene-HCTZ 1 Capsule (of 37.5-25 mg) Oral b.i.d., ZyrTEC Allergy 1 Capsule (of 10 mg) Oral daily PRN Allergies: No Known Allergies. Review of Systems: Review of Systems is not available for this patient. Vital Signs: Performed on May 05, 2021 10:06 Height - 72.00 in Weight - 198 lbs (HIGH) BSA - 2.12 sq.m BMI - 26.85 Temperature - 97.8 F (LOW) Pulse - 51 /min (LOW) Respiration - 19 /min BP - 137/72 mm(hg) O2 Sat - 98 % Pain - 0 Fatigue - 2 Performance Status: 0 - Fully active, able to carry on all predisease activities without restrictions. (ECOG) Physical Examination: ENMT - No mouth sores, no thrush, no jaundice, Respiratory - Lungs are clear to auscultation, Cardiovascular - Regular rate and rhythm of heart, Abdomen - Soft, bowel sounds present, Extremities - No visible edema. Lab/Imaging: Test performed on Mar 03, 2021 10:39 Sodium 138 mmol/L TSH 1.26 uIU/mL Potassium 3.3 mmol/L Chloride 98 mmol/L CO2 29 mmol/L Anion Gap 14.3 BUN 12 mg/dL Creatinine 0.6 mg/dL Cr Clearance (Est) 129.92 mL/min Glucose 126 mg/dL Osmolality - Calculated 287 mOsm/kg Calcium 9.6 mg/dL Protein, Total 7.7 g/dL Albumin 4.2 g/dL Globulin 3.5 g/dL Bilirubin, Total 0.5 mg/dL ALT (SGPT) 14 U/L AST (SGOT) 22 U/L Alkaline Phosphatase 74 IU/L WBC 6.7 10 3/uL RBC 5.38 10 6/uL HGB 15.7 g/dL HCT 46.3 % MCV 86.1 fl MCH 29.2 pg MCHC 33.9 g/dL RDW 13.0 % Platelet Count 206 10 3/cmm MPV 11.7 fL Neutrophils 4.61 10 3/uL Lymphocytes 1.4 10 3/uL Monocytes 0.5 10 3/uL Eosinophils 0.2 10 3/uL Basophils 0.1 10 3/uL Neutrophil % 68.9 % Lymphocyte % 20.1 % Monocyte % 7.2 % Eosinophil % 2.7 % Basophils % 0.7 % NRBC % 0 % Test performed on Feb 10, 2021 08:11 Magnesium 1.6 mg/dL Impression: Papillary urothelial carcinoma, high-grade, involving anterior urinary bladder wall, per TURBT done on 05/14/2019, final pathology report showed carcinoma invades into lamina propria, no muscularis propria present for evaluation pT1 Status post intravesical therapy with BCG now 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 Started on 3 weekly Keytruda on 07/24/2019. His Keytruda is currently on hold due to maculopapular rash on forearms and hands. His last dose was 08/14/2019. in November 2019, discussed with patient regarding his question concern, his skin rash involving bilateral upper extremities almost resolved now with mild erythema,, the last dose of Keytruda was given in 08/12 he was told rash could not be due to immunotherapy.Patient underwent follow-up cystoscopy which showed huge improvement with immunotherapy Restarted on Keytruda on April 23, 2020. Plan: Discussed with patient regarding his labs white blood count 6.3 hemoglobin 15.4 hematocrit 46 platelets 231,000 CMP within normal limit except potassium 3.9, TSH 1.09 Clinically, patient is doing well with no new signs symptoms suggestive of disease progression, tolerating Keytruda well, will proceed with next dose today and will discuss with Dr. Gonzalez regarding follow-up cystoscopy as patient will complete 2 years of immunotherapy in June 2020, and cystoscopy shows persistent disease, then will continue with immunotherapy as long as tolerated on the other hand if it shows no evidence of disease, then will discuss with patient regarding maintenance with a follow-up cystoscopy every 3 months. As far as severe hypokalemia is concerned, patient is on diuretics and potassium supplement prescribed by PMD, will check his magnesium level if it is low we will consider magnesium supplement along with potassium supplement patient will continue with oral supplement as prescribed by PMD. Return to clinic in 3 weeks with CBC CMP And for next dose of immunotherapy Signed By: Bambi Bermudez M.D. <<Signature on File>>
== END 2021-05-25 23:59 | disposition home or self-care (01) ==
LOC: ONCMED 07:49
PROVIDERS: PCP Family Medicine; Visit Provider Internal Medicine Hematology & Oncology
DX: Z51.12 Encounter for antineoplastic immunotherapy (principal); C67.3 Malignant neoplasm of anterior wall of bladder; L27.1 Localized skin eruption due to drugs and medicaments taken internally; T45.1X5A Adverse effect of antineoplastic and immunosuppressive drugs, initial encounter; E87.6 Hypokalemia; Z79.899 Other long term (current) drug therapy
CPT/HCPCS: 80053; 83735; 84443; 85025; 96366; 96367; 96413; 99215; J3475; J3480; J7030; J7050; J9271

== ENCOUNTER 2021-06-16 06:50 | Outpatient (RCR) | payer MEDICARE, OTHER, SELFPAY ==
[2021-05-26 08:35] LABS: Basophils # 0.1 10^3/uL (0.0-0.1); Basophils % 0.8 %; Eosinophils # 0.2 10^3/uL (0.0-0.8); Eosinophils % 2.3 %; Hematocrit 47.2 % (42.0-52.0); Hemoglobin 16.2 g/dL (11.7-16.6); Lymphocytes # 0.9 10^3/uL (0.8-4.8); Lymphocytes % 12.5 %; Mean Corpuscular HGB Conc 34.3 g/dL (30.0-36.0); Mean Corpuscular Hemoglobin 29.3 pg (28.0-34.0); Mean Corpuscular Volume 85.5 fl (80-94); Mean Platelet Volume 11.1 fL (7.4-10.4); Monocytes # 0.5 10^3/uL (0.2-0.9); Monocytes % 7.2 %; Neutrophils # 5.79 10^3/uL (1.8-7.7); Neutrophils % 76.8 %; Nucleated Red Blood Cells % 0 %; Platelet Count 204 10^3/cmm (130-400); Red Blood Count 5.52 10^6/uL (4.1-5.3); Red Cell Distribution Width 13.5 % (12.1-15.1); White Blood Count 7.5 10^3/uL (4.0-10.0)
[2021-05-26 09:08] LABS: Alanine Aminotransferase 18 U/L (0-41); Albumin Level 4.4 g/dL (3.5-5.2); Alkaline Phosphatase 87 IU/L (40-130); Anion Gap 13.4 (5-19); Aspartate Amino Transferase 28 U/L (0-40); Blood Urea Nitrogen 21 mg/dL (8-23); Calcium 9.3 mg/dL (8.5-10.5); Carbon Dioxide 28 mmol/L (22-29); Chloride 102 mmol/L (98-107); Globulin 3.2 g/dL (1.3-4.6); Glucose 153 mg/dL (65-115); Osmolality Calculated 296 mOsm/kg (285-295); Potassium 3.4 mmol/L (3.5-5.1); Sodium 140 mmol/L (136-145); Total Bilirubin 0.5 mg/dL (0.15-1.2); Total Protein 7.6 g/dL (6.6-8.7)
--- NOTE | 2021-05-26 16:06 | ONC FU_ITS ---
Dr. Bermudez follow up note Patient: Farhad Begum Unit #: [id number]: 1945 Dicatated By: Bambi Bermudez M.D.Date of Visit:May 26, 2021 Onc Med Follow-up/Prog Note History of Present Illness: Mr. Begum is a 75-year-old gentleman with history of superficial bladder cancer who has been treated with intravesical BCG. He underwent TURBT on 05/14/2019. He has an anterior bladder wall lesion completely removed. The final pathology report came back papillary urothelial carcinoma, high-grade. Carcinoma invades into lamina propria, no muscularis propria present for evaluation eg pT1 Left lateral bladder wall lesion was also biopsied and it showed reactive atypical urothelium in the background of abundant polypoid granulation tissue; no malignancy identified; no dysplasia seen. Biopsy from bladder, left trigone shows carcinoma in situ no invasive malignancy seen. Mr Begum underwent cystoscopy and rebiopsy of urinary bladder on 06/28/2019. 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 He was referred to Dr Bermudez in our oncology clinic for consideration for immunotherapy with pembrolizumab which was approved by FDA per keynote 057 trial findings. 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 He presented for follow-up on September 03, 2019 with a rash on his forearms and hands. It was opted to hold his Keytruda and have him return in 2 weeks. After 2 weeks, his rash was better but had not resolved-it was not particularly itchy it was just there. Mr Begum was referred to dermatology with Dr. Diaz, whom he saw on October 29, 2019. Per Dr Diaz's impression, the rash did not appear to be drug related and immunotherapy could be resumed. Patient was given TAC cream. His immunotherapy was on hold from August 14, 2019 until April 23, 2020 Mr Begum had immunotherapy on August 14, 2019 and then his treatment was placed on hold due to the rash. He had repeat bladder biopsy per Dr Gonzalez on 01/24/2020. There were four biopsies reported by pathology with no in situ carcinoma or invasive cancer identified in 3/4 of the specimes. 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 No invasive carcinoma identified . Case was discussed with Dr. Gonzalez , he reported the follow-up cystoscopy showed huge improvement with some area of patchy erythema but they are much smaller and less suspicious. There was one area that was more typical for residual CIS but was very small on the right lateral wall. With that dicussion, it was decided to continue with immunotherapy and follow-up with cystoscopy. Mr Begum resumed every 3 week Keytruda on April 23, 2020. He has tolerated it well. Mr. Begum continued on the immunotherapy with the pembrolizumab (Keytruda). He continued to tolerate it well with no recurrent rash. Follow-up cystoscopy done on September 29, 2020 showed some erythematous changes in the posterior right lateral wall, appeared to be better than they had previously. Same area where he did have small amount of CIS, patient underwent biopsy of right lateral posterior floor wall and it showed fragments of bladder stroma with chronic inflammation. Rare strips of benign urothelial cells identified. No evidence of high-grade urothelial carcinoma. Came for follow-up, denies any specific complaints, no fever chills, no nausea or vomiting, no diarrhea constipation, no melena or hematochezia, no hemoptysis hematemesis, no skin rash, no shortness of breath, no jaundice, no hematuria or dysuria, tolerating Keytruda well otherwise. Medications: Cefuroxime Axetil 1 Tablet (of 500 mg) Oral b.i.d., DHS Zinc Shampoo Topical PRN, Potassium Chloride Mile ER 3 Tablet (of 10 meq) Tablet, controlled release Oral b.i.d., Procardia XL 1 Tablet (of 60 mg) Tablet SR 24 HR Oral b.i.d., Sulfacetamide Sodium Cream Topical PRN, Tamsulosin HCl 2 Capsule (of 0.4 mg) Oral at bedtime, Triamterene-HCTZ 1 Capsule (of 37.5-25 mg) Oral b.i.d., ZyrTEC Allergy 1 Capsule (of 10 mg) Oral daily PRN Allergies: No Known Allergies. Review of Systems: Review of Systems is not available for this patient. Vital Signs: Performed on May 26, 2021 10:22 Height - 72.00 in Weight - 199.8 lbs (HIGH) BSA - 2.13 sq.m BMI - 27.10 Temperature - 98.0 F (LOW) Pulse - 72 /min Respiration - 16 /min BP - 125/61 mm(hg) O2 Sat - 98 % Pain - 0 Fatigue - 3 Performance Status: 0 - Fully active, able to carry on all predisease activities without restrictions. (ECOG) Physical Examination: ENMT - No mouth sores, no thrush, no jaundice, Respiratory - Lungs are clear to auscultation, Cardiovascular - Regular rate and rhythm of heart, Abdomen - Soft, bowel sounds present, Extremities - No visible edema. Lab/Imaging: Test performed on Mar 03, 2021 10:39 Sodium 138 mmol/L TSH 1.26 uIU/mL Potassium 3.3 mmol/L Chloride 98 mmol/L CO2 29 mmol/L Anion Gap 14.3 BUN 12 mg/dL Creatinine 0.6 mg/dL Cr Clearance (Est) 129.92 mL/min Glucose 126 mg/dL Osmolality - Calculated 287 mOsm/kg Calcium 9.6 mg/dL Protein, Total 7.7 g/dL Albumin 4.2 g/dL Globulin 3.5 g/dL Bilirubin, Total 0.5 mg/dL ALT (SGPT) 14 U/L AST (SGOT) 22 U/L Alkaline Phosphatase 74 IU/L WBC 6.7 10 3/uL RBC 5.38 10 6/uL HGB 15.7 g/dL HCT 46.3 % MCV 86.1 fl MCH 29.2 pg MCHC 33.9 g/dL RDW 13.0 % Platelet Count 206 10 3/cmm MPV 11.7 fL Neutrophils 4.61 10 3/uL Lymphocytes 1.4 10 3/uL Monocytes 0.5 10 3/uL Eosinophils 0.2 10 3/uL Basophils 0.1 10 3/uL Neutrophil % 68.9 % Lymphocyte % 20.1 % Monocyte % 7.2 % Eosinophil % 2.7 % Basophils % 0.7 % NRBC % 0 % Test performed on Feb 10, 2021 08:11 Magnesium 1.6 mg/dL Impression: Papillary urothelial carcinoma, high-grade, involving anterior urinary bladder wall, per TURBT done on 05/14/2019, final pathology report showed carcinoma invades into lamina propria, no muscularis propria present for evaluation pT1 Status post intravesical therapy with BCG now 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 Started on 3 weekly Keytruda on 07/24/2019. His Keytruda is currently on hold due to maculopapular rash on forearms and hands. His last dose was 08/14/2019. in November 2019, discussed with patient regarding his question concern, his skin rash involving bilateral upper extremities almost resolved now with mild erythema,, the last dose of Keytruda was given in 08/12 he was told rash could not be due to immunotherapy.Patient underwent follow-up cystoscopy which showed huge improvement with immunotherapy Restarted on Keytruda on April 23, 2020. Plan: Discussed with patient regarding his labs white blood count 7.5 hemoglobin 16.2 hematocrit 47.2 platelets 204,000 CMP within normal limit except potassium 3.4 Clinically, patient is doing well with no new signs symptoms history of disease progression, tolerating Keytruda well, will proceed with next dose today and then he will return to clinic in 3 weeks with CMP As far as mild hypokalemia is concerned, patient is on potassium supplements, he was advised to take additional dose for 3 days then continue with his usual dose of potassium supplement. Case was discussed with Dr. Gonzalez, urologist as patient will complete 2 years of Keytruda therapy in June 2021, he is due for his next follow-up cystoscopy and if it shows no evidence of disease, then he will follow with Dr. Gonzalez with cystoscopy as planned by Dr. Gonzalez. On the other hand if it shows persistent disease, then we may continue with immunotherapy as maintenance, as long as tolerated. All other option would be observation alone. Return to clinic in 3 weeks with CMP and for next dose of Keytruda Signed By: Bambi Bermudez M.D. <<Signature on File>>
[2021-06-16 09:32] LABS: Basophils # 0.1 10^3/uL (0.0-0.1); Eosinophils # 0.1 10^3/uL (0.0-0.8); Eosinophils % 1.7 %; Hematocrit 46.8 % (42.0-52.0); Lymphocytes # 1.1 10^3/uL (0.8-4.8); Lymphocytes % 15.4 %; Mean Corpuscular HGB Conc 34.2 g/dL (30.0-36.0); Mean Corpuscular Hemoglobin 29.1 pg (28.0-34.0); Mean Corpuscular Volume 85.1 fl (80-94); Monocytes # 0.7 10^3/uL (0.2-0.9); Monocytes % 9.2 %; Neutrophils # 5.22 10^3/uL (1.8-7.7); Neutrophils % 72.4 %; Nucleated Red Blood Cells % 0 %; Platelet Count 205 10^3/cmm (130-400); Red Cell Distribution Width 12.9 % (12.1-15.1); White Blood Count 7.2 10^3/uL (4.0-10.0)
[2021-06-16 09:56] LABS: Alanine Aminotransferase 19 U/L (0-41); Albumin Level 4.6 g/dL (3.5-5.2); Alkaline Phosphatase 85 IU/L (40-130); Anion Gap 16.2 (5-19); Aspartate Amino Transferase 26 U/L (0-40); Blood Urea Nitrogen 15 mg/dL (8-23); Carbon Dioxide 27 mmol/L (22-29); Chloride 101 mmol/L (98-107); Globulin 3.5 g/dL (1.3-4.6); Glucose 130 mg/dL (65-115); Osmolality Calculated 295 mOsm/kg (285-295); Potassium 3.2 mmol/L (3.5-5.1); Sodium 141 mmol/L (136-145); Thyroid Stimulating Hormone 1.51 uIU/mL (0.27-4.20); Total Bilirubin 0.8 mg/dL (0.15-1.2); Total Protein 8.1 g/dL (6.6-8.7)
--- NOTE | 2021-06-16 16:25 | ONC FU_ITS ---
[facility] Progress Note Patient: Farhad Begum Unit #: [id number]: 1945 Dicatated By: Sania Jean N.P.Date of Visit:Jun 16, 2021 Onc MED Follow-up/Prog Note Chief Complaint: urinary bladder cancer History of Present Illness: Mr. Begum is a 75-year-old gentleman with history of superficial bladder cancer who has been treated with intravesical BCG. He underwent TURBT on 05/14/2019. He has an anterior bladder wall lesion completely removed. The final pathology report came back papillary urothelial carcinoma, high-grade. Carcinoma invades into lamina propria, no muscularis propria present for evaluation eg pT1 Left lateral bladder wall lesion was also biopsied and it showed reactive atypical urothelium in the background of abundant polypoid granulation tissue; no malignancy identified; no dysplasia seen. Biopsy from bladder, left trigone shows carcinoma in situ no invasive malignancy seen. Mr Begum underwent cystoscopy and rebiopsy of urinary bladder on 06/28/2019. 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 He was referred to Dr Bermudez in our oncology clinic for consideration for immunotherapy with pembrolizumab which was approved by FDA per keynote 057 trial findings. 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 He presented for follow-up on September 03, 2019 with a rash on his forearms and hands. It was opted to hold his Keytruda and have him return in 2 weeks. After 2 weeks, his rash was better but had not resolved-it was not particularly itchy it was just there. Mr Begum was referred to dermatology with Dr. Diaz, whom he saw on October 29, 2019. Per Dr Diaz's impression, the rash did not appear to be drug related and immunotherapy could be resumed. Patient was given TAC cream. His immunotherapy was on hold from August 14, 2019 until April 23, 2020 Mr Begum had immunotherapy on August 14, 2019 and then his treatment was placed on hold due to the rash. He had repeat bladder biopsy per Dr Gonzalez on 01/24/2020. There were four biopsies reported by pathology with no in situ carcinoma or invasive cancer identified in 3/4 of the specimes. 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 No invasive carcinoma identified . Case was discussed with Dr. Gonzalez , he reported the follow-up cystoscopy showed huge improvement with some area of patchy erythema but they are much smaller and less suspicious. There was one area that was more typical for residual CIS but was very small on the right lateral wall. With that dicussion, it was decided to continue with immunotherapy and follow-up with cystoscopy. Mr Begum resumed every 3 week Keytruda on April 23, 2020. He has tolerated it well. Mr. Begum continued on the immunotherapy with the pembrolizumab (Keytruda). He continued to tolerate it well with no recurrent rash. Follow-up cystoscopy done on September 29, 2020 showed some erythematous changes in the posterior right lateral wall, appeared to be better than they had previously. Same area where he did have small amount of CIS, patient underwent biopsy of right lateral posterior floor wall and it showed fragments of bladder stroma with chronic inflammation. Rare strips of benign urothelial cells identified. No evidence of high-grade urothelial carcinoma. Patient presents today for follow-up. He states he has been feeling good. He has minimal fatigue. No pain. He has a good appetite. No fever, chills, night sweats. No shortness of breath, cough, chest pain. He denies any problems with his bowels. He states on occasion he has some pink-tinged urine but otherwise no problems. He denies headache, dizziness or numbness or tingling. He is here today to receive his final dose of Keytruda prior to follow-up cystoscopy with Dr. Gonzalez. Review Of Symptoms:Review of Systems is not available for this patient. Past Medical History: Bph Hypertension Past Surgical History: Biopsy of bladder muscle TURBT Covid vaccine #2 moderna in 2020 Covid vaccine #1 moderna in 2020 Allergies: No Known Allergies. Medications: Cefuroxime Axetil 1 Tablet (of 500 mg) Oral b.i.d. DHS Zinc Shampoo Topical PRN Potassium Chloride Mile ER 3 Tablet (of 10 meq) Tablet, controlled release Oral b.i.d. Procardia XL 1 Tablet (of 60 mg) Tablet SR 24 HR Oral b.i.d. Sulfacetamide Sodium Cream Topical PRN Tamsulosin HCl 2 Capsule (of 0.4 mg) Oral at bedtime Triamterene-HCTZ 1 Capsule (of 37.5-25 mg) Oral b.i.d. ZyrTEC Allergy 1 Capsule (of 10 mg) Oral daily PRN Family History: Mr. Begum's mother at age 77: kidney disease, and stroke. Mr. Begum's father at age 82: heart disease. Mr. Begum has 2 sisters: 2 . Social History: Mr. Begum is . Mr. Begum no longer smokes. He has indicated exposure to the following products: chewing tobacco. pt states he drinks one shot once a day of bourbon. He also chews tobacco two cans a week. Physical Examination: Performed on Jun 16, 2021 11:18: Height - 72.00 in, Weight - 197.4 lbs (LOW), BSA - 2.12 sq.m, BMI - 26.77, Temperature - 97.8 F (LOW), Pulse - 64 /min, Respiration - 18 /min, BP - 142/67 mm(hg) (HIGH), O2 Sat - 98 %, Pain - 0, and Fatigue - 2. Performance Status: 0 - Fully active, able to carry on all predisease activities without restrictions. (ECOG) Constitutional Alert, cooperative, oriented. Mood and affect appropriate. Appears close to chronological age. Well nourished. Well developed. Head Normocephalic; no scars. Eyes Conjunctivae and sclerae are clear and without icterus. Pupils are reactive and equal. Respiratory Lungs are clear to auscultation without rhonchi or wheezing. Cardiovascular Regular rate and rhythm of heart without murmurs, gallops or rubs. Abdomen Non-tender, non-distended, no masses, ascites or hepatosplenomegaly. Good bowel sounds. No guarding or rebound tenderness. Extremities No visible deformities, no cyanosis, clubbing or edema. Pulses 3+ and equal bilaterally. Psychiatric Alert and oriented times three. Coherent speech. Verbalizes understanding of our discussions today. Laboratory: Test performed on Jun 16, 2021 09:15 Sodium 141 mmol/L TSH 1.51 uIU/mL Potassium 3.2 mmol/L Chloride 101 mmol/L CO2 27 mmol/L Anion Gap 16.2 BUN 15 mg/dL Creatinine 0.6 mg/dL Cr Clearance (Est) 130.5800 mL/min Glucose 130 mg/dL Osmolality - Calculated 295 mOsm/kg Calcium 10.0 mg/dL Protein, Total 8.1 g/dL Albumin 4.6 g/dL Globulin 3.5 g/dL Bilirubin, Total 0.8 mg/dL ALT (SGPT) 19 U/L AST (SGOT) 26 U/L Alkaline Phosphatase 85 IU/L WBC 7.2 10 3/uL RBC 5.50 10 6/uL HGB 16.0 g/dL HCT 46.8 % MCV 85.1 fl MCH 29.1 pg MCHC 34.2 g/dL RDW 12.9 % Platelet Count 205 10 3/cmm MPV 11.0 fL Neutrophils 5.22 10 3/uL Lymphocytes 1.1 10 3/uL Monocytes 0.7 10 3/uL Eosinophils 0.1 10 3/uL Basophils 0.1 10 3/uL Neutrophil % 72.4 % Lymphocyte % 15.4 % Monocyte % 9.2 % Eosinophil % 1.7 % Basophils % 1.0 % NRBC % 0 % Test performed on Feb 10, 2021 08:11 Magnesium 1.6 mg/dL Impression: Papillary urothelial carcinoma, high-grade, involving anterior urinary bladder wall, per TURBT done on 05/14/2019, final pathology report showed carcinoma invades into lamina propria, no muscularis propria present for evaluation pT1 Status post intravesical therapy with BCG now 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 Started on 3 weekly Keytruda on 07/24/2019. His Keytruda is currently on hold due to maculopapular rash on forearms and hands. His last dose was 08/14/2019. in November 2019, discussed with patient regarding his question concern, his skin rash involving bilateral upper extremities almost resolved now with mild erythema,, the last dose of Keytruda was given in 08/12 he was told rash could not be due to immunotherapy.Patient underwent follow-up cystoscopy which showed huge improvement with immunotherapy Restarted on Keytruda on April 23, 2020. Plan: Labs were discussed with patient WBC 7.2, hemoglobin 16.0, hematocrit 46.8, platelet count 205,000. CMP potassium slightly low at 3.2 otherwise other labs within normal limits. Clinically the patient seems to be doing well. He is going to receive his final dose of Keytruda today prior to his urology appointment with Dr. Gonzalez for cystoscopy. If cystoscopy indicates persistent disease then Keytruda may be continued as maintenance as long as patient tolerates. The other option would be continue observation. We will have patient return to clinic in 4 weeks with CBC and CMP and to discuss further plans. As far as mild hypokalemia is concerned, patient is on potassium supplements, he was advised to take additional dose for 3 days then continue with his usual dose of potassium supplement. Signed By: Sania Jean N.P. <<Signature on File>>
== END 2021-06-22 23:59 | disposition home or self-care (01) ==
LOC: ONCMED 06:50
PROVIDERS: Internal Medicine Hematology & Oncology; PCP Family Medicine; Visit Provider Nurse Practitioner Family
DX: Z51.12 Encounter for antineoplastic immunotherapy (principal); C67.3 Malignant neoplasm of anterior wall of bladder; R21 Rash and other nonspecific skin eruption; Z79.899 Other long term (current) drug therapy
CPT/HCPCS: 80053; 84443; 85025; 96413; 99215; J7050; J9271

== ENCOUNTER → 2021-06-25 07:45 | Outpatient (BNVA) | payer MEDICARE, OTHER, SELFPAY | PROVIDERS: PCP Family Medicine; Visit Provider Urology | DX: C67.8 Malignant neoplasm of overlapping sites of bladder (principal) | CPT/HCPCS: 81003 ==

== ENCOUNTER 2021-07-06 11:56 | Outpatient (RCR) | payer MEDICARE, OTHER, SELFPAY ==
[2021-07-06 12:19] LABS: Basophils # 0.1 10^3/uL (0.0-0.1); Eosinophils # 0.1 10^3/uL (0.0-0.8); Eosinophils % 1.1 %; Hematocrit 47.7 % (42.0-52.0); Hemoglobin 15.9 g/dL (11.7-16.6); Lymphocytes # 1.4 10^3/uL (0.8-4.8); Lymphocytes % 18.1 %; Mean Corpuscular HGB Conc 33.3 g/dL (30.0-36.0); Mean Corpuscular Hemoglobin 28.6 pg (28.0-34.0); Mean Corpuscular Volume 85.9 fl (80-94); Mean Platelet Volume 10.8 fL (7.4-10.4); Monocytes # 0.6 10^3/uL (0.2-0.9); Monocytes % 7.1 %; Neutrophils # 5.68 10^3/uL (1.8-7.7); Neutrophils % 72.3 %; Nucleated Red Blood Cells % 0 %; Platelet Count 242 10^3/cmm (130-400); Red Blood Count 5.55 10^6/uL (4.1-5.3); Red Cell Distribution Width 12.9 % (12.1-15.1); White Blood Count 7.9 10^3/uL (4.0-10.0)
[2021-07-06 12:37] LABS: Alanine Aminotransferase 15 U/L (0-41); Albumin Level 4.5 g/dL (3.5-5.2); Alkaline Phosphatase 82 IU/L (40-130); Anion Gap 14.7 (5-19); Aspartate Amino Transferase 22 U/L (0-40); Blood Urea Nitrogen 21 mg/dL (8-23); Carbon Dioxide 28 mmol/L (22-29); Chloride 101 mmol/L (98-107); Globulin 3.1 g/dL (1.3-4.6); Glucose 119 mg/dL (65-115); Osmolality Calculated 294 mOsm/kg (285-295); Potassium 3.7 mmol/L (3.5-5.1); Sodium 140 mmol/L (136-145); Total Bilirubin 0.4 mg/dL (0.15-1.2); Total Protein 7.6 g/dL (6.6-8.7)
--- NOTE | 2021-07-06 16:05 | ONC FU_ITS ---
Dr. Bermudez follow up note Patient: Farhad Begum Unit #: [id number]: 1945 Dicatated By: Bambi Bermudez M.D.Date of Visit:Jul 06, 2021 Onc Med Follow-up/Prog Note History of Present Illness: Mr. Begum is a 75-year-old gentleman with history of superficial bladder cancer who has been treated with intravesical BCG. He underwent TURBT on 05/14/2019. He has an anterior bladder wall lesion completely removed. The final pathology report came back papillary urothelial carcinoma, high-grade. Carcinoma invades into lamina propria, no muscularis propria present for evaluation eg pT1 Left lateral bladder wall lesion was also biopsied and it showed reactive atypical urothelium in the background of abundant polypoid granulation tissue; no malignancy identified; no dysplasia seen. Biopsy from bladder, left trigone shows carcinoma in situ no invasive malignancy seen. Mr Begum underwent cystoscopy and rebiopsy of urinary bladder on 06/28/2019. 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 He was referred to Dr Bermudez in our oncology clinic for consideration for immunotherapy with pembrolizumab which was approved by FDA per keynote 057 trial findings. 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 He presented for follow-up on September 03, 2019 with a rash on his forearms and hands. It was opted to hold his Keytruda and have him return in 2 weeks. After 2 weeks, his rash was better but had not resolved-it was not particularly itchy it was just there. Mr Begum was referred to dermatology with Dr. Diaz, whom he saw on October 29, 2019. Per Dr Diaz's impression, the rash did not appear to be drug related and immunotherapy could be resumed. Patient was given TAC cream. His immunotherapy was on hold from August 14, 2019 until April 23, 2020 Mr Begum had immunotherapy on August 14, 2019 and then his treatment was placed on hold due to the rash. He had repeat bladder biopsy per Dr Gonzalez on 01/24/2020. There were four biopsies reported by pathology with no in situ carcinoma or invasive cancer identified in 3/4 of the specimes. 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 No invasive carcinoma identified . Case was discussed with Dr. Gonzalez , he reported the follow-up cystoscopy showed huge improvement with some area of patchy erythema but they are much smaller and less suspicious. There was one area that was more typical for residual CIS but was very small on the right lateral wall. With that dicussion, it was decided to continue with immunotherapy and follow-up with cystoscopy. Mr Begum resumed every 3 week Keytruda on April 23, 2020. He has tolerated it well. Mr. Begum continued on the immunotherapy with the pembrolizumab (Keytruda). He continued to tolerate it well with no recurrent rash.Completed 2 years of Keytruda therapy on June 16, 2021, Follow-up cystoscopy done on September 29, 2020 showed some erythematous changes in the posterior right lateral wall, appeared to be better than they had previously. Same area where he did have small amount of CIS, patient underwent biopsy of right lateral posterior floor wall and it showed fragments of bladder stroma with chronic inflammation. Rare strips of benign urothelial cells identified. No evidence of high-grade urothelial carcinoma. Follow-up cystoscopy done on June 25, 2021 showed no change in the right-sided abnormal mucosa consistent with previous multiple cystoscopies on multiple biopsies showed no evidence of cancer residual. Etiology of this and clear but probably related to intravesical BCG therapy done in the past.. Biopsy shows no malignancy. And as per urology note surveillance cystoscopy in 4 months was recommended. Came for follow-up, denies any specific complaints, no fever chills, no nausea or vomiting, no diarrhea constipation, no melena hematochezia, no dysuria or hematuria, no skin rash, patient has completed 2 years of Keytruda therapy well and recently underwent cystoscopy which shows no evidence of malignancy, chronic probably BCG therapy related changes. Now being followed by urology with cystoscopy every 4 months Medications: Cefuroxime Axetil 1 Tablet (of 500 mg) Oral b.i.d., DHS Zinc Shampoo Topical PRN, Potassium Chloride Mile ER 3 Tablet (of 10 meq) Tablet, controlled release Oral b.i.d., Procardia XL 1 Tablet (of 60 mg) Tablet SR 24 HR Oral b.i.d., Sulfacetamide Sodium Cream Topical PRN, Tamsulosin HCl 2 Capsule (of 0.4 mg) Oral at bedtime, Triamterene-HCTZ 1 Capsule (of 37.5-25 mg) Oral b.i.d., ZyrTEC Allergy 1 Capsule (of 10 mg) Oral daily PRN Allergies: No Known Allergies. Review of Systems: Review of Systems is not available for this patient. Vital Signs: Performed on Jul 06, 2021 14:00 Height - 72.00 in Weight - 194.6 lbs (LOW) BSA - 2.11 sq.m BMI - 26.39 Temperature - 97.9 F (LOW) Pulse - 81 /min Respiration - 18 /min BP - 156/72 mm(hg) (HIGH) O2 Sat - 97 % Pain - 0 Fatigue - 1 Performance Status: 0 - Fully active, able to carry on all predisease activities without restrictions. (ECOG) Physical Examination: ENMT - No mouth sores, no thrush, no jaundice, Respiratory - Lungs are clear to auscultation, Cardiovascular - Regular rate and rhythm of heart, Abdomen - Soft, bowel sounds present, Extremities - No visible edema. Lab/Imaging: Test performed on Jun 16, 2021 09:15 Sodium 141 mmol/L TSH 1.51 uIU/mL Potassium 3.2 mmol/L Chloride 101 mmol/L CO2 27 mmol/L Anion Gap 16.2 BUN 15 mg/dL Creatinine 0.6 mg/dL Cr Clearance (Est) 130.5800 mL/min Glucose 130 mg/dL Osmolality - Calculated 295 mOsm/kg Calcium 10.0 mg/dL Protein, Total 8.1 g/dL Albumin 4.6 g/dL Globulin 3.5 g/dL Bilirubin, Total 0.8 mg/dL ALT (SGPT) 19 U/L AST (SGOT) 26 U/L Alkaline Phosphatase 85 IU/L WBC 7.2 10 3/uL RBC 5.50 10 6/uL HGB 16.0 g/dL HCT 46.8 % MCV 85.1 fl MCH 29.1 pg MCHC 34.2 g/dL RDW 12.9 % Platelet Count 205 10 3/cmm MPV 11.0 fL Neutrophils 5.22 10 3/uL Lymphocytes 1.1 10 3/uL Monocytes 0.7 10 3/uL Eosinophils 0.1 10 3/uL Basophils 0.1 10 3/uL Neutrophil % 72.4 % Lymphocyte % 15.4 % Monocyte % 9.2 % Eosinophil % 1.7 % Basophils % 1.0 % NRBC % 0 % Test performed on Feb 10, 2021 08:11 Magnesium 1.6 mg/dL Impression: Papillary urothelial carcinoma, high-grade, involving anterior urinary bladder wall, per TURBT done on 05/14/2019, final pathology report showed carcinoma invades into lamina propria, no muscularis propria present for evaluation pT1 Status post intravesical therapy with BCG now 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 Started on 3 weekly Keytruda on 07/24/2019. His Keytruda is currently on hold due to maculopapular rash on forearms and hands. His last dose was 08/14/2019. in November 2019, discussed with patient regarding his question concern, his skin rash involving bilateral upper extremities almost resolved now with mild erythema,, the last dose of Keytruda was given in 08/12 he was told rash could not be due to immunotherapy.Patient underwent follow-up cystoscopy which showed huge improvement with immunotherapy Restarted on Keytruda on April 23, 2020.^, Completed 2 years of Keytruda on June 16, 2021 and ] Follow-up cystoscopy done on June 25, 2021 showed no change in the right-sided abnormal mucosa consistent with previous multiple cystoscopies on multiple biopsies showed no evidence of cancer residual. Etiology of this and clear but probably related to intravesical BCG therapy done in the past.. Biopsy shows no malignancy. And as per urology note surveillance cystoscopy in 4 months was recommended. Plan: Discussed with patient regarding his labs white blood count 7.9 hemoglobin 15.9 hematocrit 47.7 platelets 242,000 CMP within normal limits and his follow-up cystoscopy done on June 25, 2021 showed chronic changes in the right side of bladder, probably related to intravesical BCG therapy in the past, biopsies negative Clinically, patient doing well with no new signs symptom suggestive of recurrence of disease or disease progression, patient has completed 2 years of Keytruda therapy well with no disease progression or recurrence as per recent cystoscopy done on June 25, 2021. At this point, patient will continue to follow with urology, as per urology note surveillance cystoscopy every 4 months and we will see him on as-needed basis. Signed By: Bambi Bermudez M.D. <<Signature on File>>
== END 2021-07-23 23:59 | disposition home or self-care (01) ==
LOC: ONCMED 11:56
PROVIDERS: PCP Family Medicine; Visit Provider Nurse Practitioner Family
DX: Z08 Encounter for follow-up examination after completed treatment for malignant neoplasm (principal); Z85.51 Personal history of malignant neoplasm of bladder; L53.9 Erythematous condition, unspecified; Z79.899 Other long term (current) drug therapy; Z92.25 Personal history of immunosuppression therapy
CPT/HCPCS: 36415; 80053; 85025; 99214

== ENCOUNTER → 2021-11-03 09:50 | Outpatient (BNVA) | payer MEDICARE, OTHER, SELFPAY | PROVIDERS: PCP Family Medicine; Visit Provider Urology | DX: C67.8 Malignant neoplasm of overlapping sites of bladder (principal) | CPT/HCPCS: 52000; 99213; 81003; 88112 ==

== ENCOUNTER → 2022-02-25 09:12 | Outpatient (BNVA) | payer MEDICARE, OTHER, SELFPAY | PROVIDERS: PCP Family Medicine; Visit Provider Urology | DX: C67.8 Malignant neoplasm of overlapping sites of bladder (principal); N30.90 Cystitis, unspecified without hematuria | CPT/HCPCS: 52000; 81003; 87077; 87086; 87186; 99213 ==

== ENCOUNTER → 2022-07-13 08:10 | Outpatient (BNVA) | payer MEDICARE, OTHER, SELFPAY | PROVIDERS: PCP Family Medicine; Visit Provider Urology | DX: C67.8 Malignant neoplasm of overlapping sites of bladder (principal); N30.90 Cystitis, unspecified without hematuria | CPT/HCPCS: 52000; 87086; 88112; 99213 ==

== ENCOUNTER → 2022-07-27 07:41 | Outpatient (BNVA) | payer MEDICARE, OTHER, SELFPAY | PROVIDERS: PCP Family Medicine; Visit Provider Urology | DX: C67.8 Malignant neoplasm of overlapping sites of bladder (principal); N30.90 Cystitis, unspecified without hematuria | CPT/HCPCS: 99214 ==

== ENCOUNTER 2022-07-27 09:00 | Outpatient (CLI) | payer MEDICARE, OTHER, SELFPAY | END 2022-07-27 09:01 | disposition home or self-care (01) | LOC: RADOUTREAD 08-05 12:10 | PROVIDERS: PCP Family Medicine; Visit Provider Urology | DX: Z13.6 Encounter for screening for cardiovascular disorders (principal) | CPT/HCPCS: 93005 ==

== ENCOUNTER 2022-08-04 08:42 | Observation (INO) | payer MEDICARE, OTHER, SELFPAY ==
[2022-07-27 08:44] VITALS: BMI 28.5
--- NOTE | 2022-07-27 09:00 | ECG_ITS ---
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 Measurements Intervals [place] Rate: 78 P: 61 [place]: 128 QRS: 26 QRSD: 91 T: 47 QT: 368 QTc: 422 Interpretive Statements SINUS RHYTHM WITH FREQUENT VENTRICULAR PREMATURE COMPLEXES POSSIBLE LEFT ATRIAL ENLARGEMENT [-0.1mV P-WAVE IN V1/V2] Compared to ECG 05/11/2019 12:28:51 Ventricular premature complex(es) now present Electronically Signed On 07-27-2022 11:54:43 CDT by Steve Phillips M.D. [id number]
--- NOTE | 2022-07-27 09:41 | P.ANESASSM_ITS ---
Pre-Anesthetic Assessment Height/Weight: Height 1.83 m Weight 95.254 kg Preop Diagnosis: Recurrent bladder cancer Operation Date: 08/04/22 07:20 Proposed Procedures p Transurethral Resection Bladder Tumor(Not Applicable) - Leo Gonzalez MD s CYSTOSCOPY TRANSURETHRAL RESECTION OF BLADDER TUMOR/BIOPSY PROSTATE 22960 [id number],C67.8(Not Applicable) - Leo Gonzalez MD Familial anesthetic complications: None Social No alcohol and No tobacco Exam alert, oriented x 3, clear to auscultation bilaterally and regular rate & rhythm Airway Mallampati: Class II Dentition: other (missing teeth) CV/HEM Hypertension Anesthetic Plan ASA status: 3 Anesthesia: General Risk of > 500 ml blood loss (7ml/kg in children): No Medications/Allergies Home Medications Medication Instructions Recorded Confirmed Last Taken Type pyrithione zinc 2 % shampoo (DHS 1 applic topical DAILY 05/08/19 07/27/22 History Zinc) sulfacetamide sodium (acne) 10 % 1 applic topical DAILY 05/08/19 07/27/22 0 07/27/22 History lotion (suspension) fluticasone propionate 50 1 spray intranasal DAILY #16 grams 09/26/20 07/27/22 07/27/22 Rx mcg/actuation nasal spray,suspension (Flonase Allergy Relief) nifedipine 60 mg tablet,extended 60 mg PO BID #180 tabs 12/09/21 07/27/22 07/27/22 Rx release 24 hr (Procardia XL) potassium chloride 10 mEq See Rx Instructions .Route 12/09/21 07/27/22 07/27/22 Rx tablet,extended release(part/cryst) .COMPLEX #540 tabs tamsulosin 0.4 mg capsule 0.4 mg PO BID #180 caps 12/09/21 07/27/22 07/27/22 Rx triamterene 37.5 See Rx Instructions .Route 12/09/21 07/27/22 07/27/22 Rx mg-hydrochlorothiazide 25 mg .COMPLEX #180 caps capsule ciprofloxacin HCl 500 mg tablet 500 mg PO BID #60 tabs 07/13/22 07/27/22 07/27/22 Rx Allergies Allergy/AdvReac Type Severity Reaction Status Date / Time No Known Allergies Allergy Verified 07/27/22 08:41 [facility] Anesthesia Medical History Hypertension Malignant neoplasm of overlapping sites of bladder Patient with history of carcinoma in situ treated with prolonged BCG. After failed BCG started KEYTRUDA with cystoscopic evidence of improvement December 2019 Surgical History H/O transurethral destruction of bladder lesion Family History Father , IN HIS 80'S CAD (coronary artery disease) Mother , IN HER 70'S Chronic kidney disease (CKD) Social History Smoking and tobacco status: former smoker Alcohol intake: current Alcohol intake frequency: 0-2 Drinks per Day Alcohol type: hard liquor Marital status: / Current occupational status: retired History of recent travel: No Data Anesthesia 07/27/22 09:06 Cardiac Studies: No Data to Display
[2022-07-27 09:51] LABS: Anion Gap 17.6 (5-19); Blood Urea Nitrogen 23 mg/dL (8-23); Calcium 9.1 mg/dL (8.5-10.5); Carbon Dioxide 24 mmol/L (22-29); Chloride 98 mmol/L (98-107); Glucose 105 mg/dL (65-115); Osmolality Calculated 286 mOsm/kg (285-295); Potassium 3.6 mmol/L (3.5-5.1); Sodium 136 mmol/L (136-145)
[2022-08-04] VITALS (14 sets, daily range): BP systolic 120–168; BP diastolic 55–82; PULSE 68–86; RESP 15–22; TEMP 35.6–36.5; O2SAT 92–100; BMI 28.5
[2022-08-04] MEDS: sodium chloride 0.9% 1,000 ML 30 ML IV (06:30)
--- NOTE | 2022-08-04 06:48 | W.PM.OPSUD ---
Surgery/Procedure H&P Update DATE OF PROCEDURE: August 04, 2022 DATE H&P PERFORMED: 08/13/22 H&P UPDATE INFORMATION: I have reviewed H&P completed within last 30 days, I have examined patient prior to procedure, No changes to prior documentation and H[place] is in [facility] [place] date indicated PREOP DIAGNOSIS: Recurrent bladder cancer PRIMARY INDICATION FOR PROCEDURE: Suspicious bladder mucosa patient with long history of TCCA/CIS. Recent suspicious cytologies as well as cystoscopy PLANNED PROCEDURE: Operation Date: 08/04/22 07:00 Proposed Procedures p Transurethral Resection Bladder Tumor(Not Applicable) - Leo Gonzalez MD s CYSTOSCOPY TRANSURETHRAL RESECTION OF BLADDER TUMOR/BIOPSY PROSTATE [id number],C67.8(Not Applicable) - Leo Gonzalez MD
--- NOTE | 2022-08-04 06:55 | P.OP_ITS ---
Operative Report Date of procedure: August 04, 2022 Pre-op diagnosis: Recurrent bladder cancer Prostatic fossa (left lateral lobe) suspicious mucosa Post-op diagnosis: Recurrent bladder cancer Prostatic fossa (left lateral lobe) suspicious mucosa Procedure done: 1. Cystoscopy, transurethral resection of bladder tumor, large 2. Transurethral resection of left prostate lobe for suspicious mucosa Specimens removed/disposition: 1. Bladder lesions: Right posterolateral floor, right lateral wall, left bladder neck 2. Prostate tissue: Left lateral lobe of prostate Pathology: 1. Bladder lesions: Right posterolateral floor, right lateral wall, left bladder neck 2. 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 See operative report. * Both orifices were visualized throughout the procedure and well away from any resection or fulguration * Meticulous hemostasis obtained at the completion of the procedure and all specimens removed and labeled appropriately with confirmation Brief History: Mr. 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 He has been treated with multiple courses of BCG both induction and maintenance and later Keytruda for failure of BCG. He did respond well to that with several biopsies post Keytruda showing no evidence of disease. He has maintained a very suspicious appearing bladder with multiple biopsies again showing no correlation with bladder cancer. Recently he had a scope for routine surveillance in the office that showed more suspicious findings on the right lateral wall and some cobblestone type appearance on the mucosa of the prostate that was new. Follow-up cytologies were suspicious. He is admitted now for TURBT and TURP (resection sampling of the prostate) Procedure: After routine preoperative evaluation examination and obtaining of informed consent he was taken to the operating suite on 08/04/2022 where general anesthesia was administered without difficulty after appropriate timeout was performed, SCDs confirmed to be functioning, preoperative antibiotics administered, beta-china protocol confirmed. Prepped and draped in usual sterile fashion in dorsolithotomy position pain careful attention to avoiding pressure points. 21 [place]ger cystoscope with 30 degree lens was introduced into the urethral meatus and advanced into the bladder. Bladder was systematically examined both 70 and 30 degree lenses. Findings seen in clinic were confirmed. Cold cup biopsy forceps were then utilized to sample the small papillary lesions on the right posterolateral floor. Urethra was then calibrated with [place] sounds and easily accommodated 30 [place]ger. A well-lubricated 25 Luxembourger continuous-flow resectoscope sheath with visual obturator in place was advanced into the bladder without difficulty. The gyrus bipolar system with super loop was utilized for resection. Areas sampled * Right posterolateral floor, specimens were combined with the cold cup biopsy sampling from the same area * Right lateral wall * Left bladder neck * Prostate lateral lobe (left) Button probe was used to fulgurate the base of the resected areas for complete hemostasis. Specimens were sent separately. Hemostasis was visually confirmed. All chips were confirmed to be out of the bladder. Specimens were confirmed with the circulating nurse. Bladder was then drained with a 22 Luxembourger three-way Ornelas catheter 30 cc placed in the balloon and low flow CBI was initiated. He tolerated procedure well without complications and was awakened in the operating room and returned to the recovery room in stable condition. PLANS: 1. Admit to [facility] for observation status with anticipation of discharge tomorrow
[2022-08-04] MEDS: levofloxacin-dextrose 5 % 500 MG/100 ML PREMIX 100 MG IV (07:03)
[2022-08-04] MEDS: lidocaine 2% Urojet 20 mL TOPICAL (07:33)
--- NOTE | 2022-08-04 09:30 | P.ANESUD_ITS ---
Pre-Anesthetic Update Pre-Anesthetic Assessment: Date of Surgery/Procedure: 08/04/22 Preop Lata gnosis: Recurrent bladder cancer Proposed Procedure: Operation Date: 08/04/22 07:00 Proposed Procedures p Transurethral Resection Bladder Tumor(Not Applicable) - Leo Gonzalez MD s CYSTOSCOPY TRANSURETHRAL RESECTION OF BLADDER TUMOR/BIOPSY PROSTATE [id number],C67.8(Not Applicable) - Leo Gonzalez MD Any changes to Pre-Anesthetic Assessment?: No Last Intake: Intake Last Liquid Date 08/03/22 Last Liquid Time 22:00 Last Solid Date 08/03/22 Last Solid Time 20:00 Vitals: Temperature 97.7 F 08/04/22 08:37 Temperature Source Temporal Artery S can 08/04/22 08:37 Pulse Rate 68 08/04/22 08:37 Respiratory Rate 17 08/04/22 08:37 Blood Pressure 127/69 08/04/22 08:37 Blood Pressure Dionne n 88 08/04/22 08:37 Pulse Oximetry 95 08/04/22 08:37 Oxygen Delivery Me thod Room Air 08/04/22 08:37 Oxygen Flow Rate 6 08/04/22 08:12 Exam: Pre-Anes Outpt Exam: alert, oriented x 3, clear to auscultation bilaterally and regular rate & rhythm Cardiac Studies: No Data to Display
[2022-08-04 10:18] LABS: Glucose Point of Care 85 mg/dL (70-110)
[2022-08-04] MEDS: fluticasone nasal spray 16gm Btl 1 SPRAY INTRANASAL (10:48)
[2022-08-04] MEDS: tamsulosin 0.4 mg Capsule PO ×2 (10:48→17:49)
[2022-08-04] MEDS: docusate sodium 100 mg Capsule PO ×2 (10:49→17:49)
[2022-08-04] MEDS: NIFEdipine ER (24 hr) 30 mg Tablet 60 MG PO ×2 (10:49→17:48)
[2022-08-04] MEDS: dextrose 5%-ns + KCl 20 20 MEQ/1,000 ML BAG 50 MEQ IV (11:05)
--- NOTE | 2022-08-04 15:30 | ANE.PACU2 ---
Inpatient post-anesthesia follow up: Airway intact: Yes Vital signs: Temperature 97.4 F Pulse Rate 76 Respiratory Rate 18 Blood Pressure 124/76 Pulse Oximetry 92 Oxygen Delivery Me thod Room Air Oxygen Flow Rate 6 Fraction of Inspir ed Oxygen Hydration adequate: Yes Nausea and vomiting: No Pain level: 2 Mental status: Baseline
[2022-08-04] MEDS: HYDROcodone-acetaminophen 5-325 mg Tablet 1 TAB PO (17:49)
[2022-08-05 03:57] VITALS: BP 119/55; PULSE 62; RESP 16; TEMP 36.5; O2SAT 93
[2022-08-05] MEDS: dextrose 5%-ns + KCl 20 20 MEQ/1,000 ML BAG 50 MEQ IV (05:47)
--- NOTE | 2022-08-05 06:12 | PC.NURSE ---
Pt had a restless night. No pain, just the urge to urinate often. Investigation was done into possible cause including catheter advancement and bladder scanning and no evidence of retention. CBI has been on very slow drip all night with only about 1600ml instilled and 2400mls out with approx 700mls of dark yellow urine output.
[2022-08-05 07:43] VITALS: BP 121/49; PULSE 71; RESP 18; TEMP 36.6; O2SAT 93
--- NOTE | 2022-08-05 07:52 | PC.NURSE ---
Patient resting in bed, no c/o pain but has mild discomfort from adan catheter. Physician recently at bedside and placing orders for adan removal. student bedside with this nurse, removed catheter and placed sterile cups bedside per physician for voiding trial.
[2022-08-05 08:06] VITALS: BP 127/54; PULSE 67; RESP 18; TEMP 36.5
[2022-08-05] MEDS: NIFEdipine ER (24 hr) 30 mg Tablet 60 MG PO (10:27)
[2022-08-05] MEDS: fluticasone nasal spray 16gm Btl 1 SPRAY INTRANASAL (10:27)
[2022-08-05] MEDS: docusate sodium 100 mg Capsule PO (10:27)
[2022-08-05] MEDS: tamsulosin 0.4 mg Capsule PO (10:28)
--- NOTE | 2022-08-05 11:54 | P.DS_ITS ---
Discharge Providers Date of Admission: 08/04/22 08:42 Date of Discharge: August 05, 2022 Attending Provider at Admission: Leo Gonzalez MD Attending Provider at Discharge: Leo Gonzalez MD Consults: None Primary Care Provider: Marino Peguero DO Diagnoses at Discharge Discharge Diagnosis (1) Malignant neoplasm of overlapping sites of bladder: Status: Chronic Permanent problem details: Patient with history of carcinoma in situ treated with prolonged BCG. After failed BCG started KEYTRUDA with cystoscopic evidence of improvement December 2019 (2) Hypertension: Status: Acute Qualifiers: Hypertension type: essential hypertension Qualified Code(s): I10 - Essential (primary) hypertension Reason for Visit Reason for Visit: C67.8 Hospital Course Hospital Course Was admitted on 08/04/2022 on the day of the procedure which went well. Multiple areas were resected in the bladder and on the left lateral lobe of the prostate. Final path came back as 1 very very microscopic area suspicious for carcinoma in situ but all the other areas resected which were quite significant did not show any residual cancer. We decided to forego any further definitive treatment based on overall big picture. I did recommend that he follow-up with urology from [place] and he would prefer to have that done up here in [place] so we will make arrangements for that. That can be modified if patient changes his mind and would prefers to go closer to home in [place] itself. On postop day #1 he voided well. His bladder was empty. His urine remained clear. Deemed a good candidate for further convalescence at home and was discharged on postop day 1 in stable condition. Physical Exam Const: COMMON NORMALS: no acute distress, alert and well nourished ORIENTATION/CONSCIOUSNESS: not confused Resp: COMMON NORMALS: normal respiratory effort EFFORT & INSPECTION: No labored and No Actively coughing Neuro: COMMON NORMALS: no focal motor deficits SENSORIUM/ORIENTATION: Yes alert Psych: COMMON NORMALS: mental status grossly normal APPEARANCE: Yes grossly normal ATTITUDE: Yes calm and Yes engaged Urinary Catheter Management: 3-way Urethral CBI: Cath Placed During This Visit: yes, but has since been removed by the nurse Reason for Continuing Indwelling Catheter: Decision to DC Catheter Urinary Catheter Date of Insertion: 08/04/22 Urinary Catheter Time of Insertion: 07:55 Date Urinary Catheter Removed: 08/05/22 Time Urinary Catheter Discontinued: 08:09 Discharge Data Studies Completed and Pending Completed Studies During Hospitalization Category Date Time Status Pathology: Surgical [PTH] Routine Pth 08/04/22 07:56 Completed Laboratory Results Sodium 136 mmol/L (136-145) 07/27/22 09:06 Potassium 3.6 mmol/L (3.5-5.1) 07/27/22 09:06 Chloride 98 mmol/L (98-107) 07/27/22 09:06 Carbon Dioxide 24 mmol/L (22-29) 07/27/22 09:06 Anion Gap 17.6 (5-19) 07/27/22 09:06 BUN 23 mg/dL (8-23) 07/27/22 09:06 Creatinine 0.9 mg/dL (0.7-1.2) 07/27/22 09:06 GFR Calculation Not Reportable 07/27/22 09:06 Glucose 105 mg/dL (65-115) 07/27/22 09:06 POC Glucose 85 mg/dL (70-110) 08/04/22 09:58 Calculated Osmolality 286 mOsm/kg (285-295) 07/27/22 09:06 Calcium 9.1 mg/dL (8.5-10.5) 07/27/22 09:06 Procedures Performed Cystoscopy, transurethral section of bladder tumor large Transurethral resection/biopsy prostate left lateral lobe Vitals Last Vital Signs Temp 97.7 F 08/05/22 08:06 Pulse 67 08/05/22 08:06 Resp 18 08/05/22 08:06 BP 127/54 08/05/22 08:06 Pulse Ox 93 08/05/22 07:43 O2 Del Method Room Air 08/05/22 08:06 O2 Flow Rate 94 08/05/22 08:06 Discharge Plan Discharge Patient Disposition: Home Condition: Stable Prescriptions: Continued DHS Zinc 2 % shampoo 1 applic TOPICAL DAILY sulfacetamide sodium (acne) 10 % suspension 1 applic TOPICAL DAILY fluticasone propionate [Flonase Allergy Relief] 50 mcg/actuation spray,suspension 1 spray intranasal DAILY Qty: 16 1RF Rx Instructions: administer into each nostril ciprofloxacin HCl 500 mg tablet 500 mg PO BID Qty: 60 1RF potassium chloride 10 mEq tablet,ER particles/crystals See Rx Instructions .ROUTE .COMPLEX Qty: 540 3RF Dose Instruction: TAKE 3 TABLETS BY MOUTH TWICE DAILY Rx Instructions: TAKE 3 TABLETS BY MOUTH TWICE DAILY tamsulosin 0.4 mg capsule 0.4 mg PO BID Qty: 180 3RF triamterene-hydrochlorothiazid 37.5-25 mg capsule See Rx Instructions .ROUTE .COMPLEX Qty: 180 3RF Dose Instruction: TAKE 1 CAPSULE BY MOUTH TWICE DAILY Rx Instructions: TAKE 1 CAPSULE BY MOUTH TWICE DAILY nifedipine [Procardia XL] 60 mg tablet extended release 24 hr 60 mg PO BID Qty: 180 3RF Discharge Orders: Discharge Order (Routine); Ordered 08/05/22 Ordered By: Leo Gonzalez Referrals: Marino Peguero DO [Primary Care Provider] - (Will be requesting consultation from urology from [place] for long-term follow-up. Request tamsulosin be picked up by his family physician Dr. Peguero) Discharge Diet: Advance as tolerated Discharge Activity: Limit activity as instructed Patient Instructions: Opioid Safety Activity Restrictions/Additional Instructions: 1. Avoid lifting >10 pounds for 3 weeks. 2. We will be making arrangements to have you see one of the urologist for [place] and As per your initial request, we will see if that can be arranged for one of their clinic visits to [place]. 3. We will be sending the paperwork and request for consultation. Discharge Attestations Time Spent in Discharge Care*: less than 30 min Status at Discharge: Cognitive status at discharge: cognitively intact , Behavioral status at discharge: cooperative , Quality Metrics Clinical Quality Measures [ No reported AMI, CVA or VTE this stay] Coding Level of Care Code Acute Code for Chg Fwd Diagnoses Malignant neoplasm of overlapping sites of bladder C67.8 Hypertension I10 Hypertension type: essential hypertension
[2022-08-05 11:59] VITALS: BP 151/61; PULSE 69; RESP 18; TEMP 36.4
--- NOTE | 2022-08-05 12:36 | PC.CHAP ---
Pastoral Care Encounter/Spiritual Assessment Type of Contact [] Declined filler sifter machine visit [] Patient/Family/Request visit [] Outpatient visit [] Follow-up visit [] Physician referral [] Code/Alert [x] Routine visit [] Staff referral [] Actively dying [] Patient sleeping [] Family support [] [] Out of room [] Palliative care [] [x] Receiving care in room [] Pre-surgical visit [] Trauma [] Long length of stay [] ICU visit [] Other: Relational/Emotional Strength [x] Patient feels connected with others/family/visitors/staff [] Distress [] Loneliness/isolation [] Abandonment Spirituality of Patient [x] Person of Narcisa [] Attends Hindu of their Narcisa [x] Believes in Prayer [] Reads Bible or Gnosticist materials [] There are Spiritual issues to be addressed Substation Electrician Interventions [x] Prayer [x] Active listening [x] Non-anxious presence [x] Spiritual/emotional support [] Crisis/trauma care [x] Spiritual counseling [] Bereavement support [] Provided bereavement packet [] Provided Bible/devotional materials [] Provided toy/stuffed animal, coloring book to patient or family member [] Provided Communion [] Anointing/[place] [] Salvation [x] Completed spiritual assessment [] Other: Impact on Illness or Injury [] Angry [] Fearful [] Anxious [] Often cries [] Exhaustion [] Unable to work [] Unable to attend anabaptist [] Unable to walk/stand [] Unable to read [] Unable to drive [] Unable to eat/drink [] Unable to sleep [] Unable to be with family [] Patient intubated [] Other: Summary not sure about health waiting doctors report well go home +1 has a good attitude Time spent with patient 10 mins
[2022-08-05 14:22] VITALS: BP 151/61; PULSE 69; RESP 18; TEMP 36.4; O2SAT 98
== END 2022-08-05 14:27 | disposition home or self-care (01) ==
LOC: MEDSURG 08:42
PROVIDERS: Anesthesiology; Admitting Provider Urology; PCP Family Medicine; Visit Provider Urology
PROC: 0TBB8ZZ Excision of Bladder, Via Natural or Artificial Opening Endoscopic (ICD-10-PCS; CPT 52235; principal; 2022-08-04 07:00)
PROC: 0TJB8ZZ Inspection of Bladder, Via Natural or Artificial Opening Endoscopic (ICD-10-PCS; CPT 52000; 2022-08-04 07:00)
DX: N32.9 Bladder disorder, unspecified (principal); I10 Essential (primary) hypertension; I49.3 Ventricular premature depolarization; Z85.51 Personal history of malignant neoplasm of bladder; Z87.891 Personal history of nicotine dependence
CPT/HCPCS: 52235; 52601; 36415; 36416; 51798; 80048; 82962; 88305; 88307; G0378; J1100; J1956; J2405; J2704; J2710; J3010; J3490; J7030